=== PATIENT | female | born 1945 | race Caucasian/White ===

== ENCOUNTER 2018-03-17 18:40 | Observation (INO) | payer MEDICARE, SELFPAY ==
--- NOTE | 2018-03-17 12:46 | EKG12_ITS ---
Test Reason : CP Blood Pressure : / mmHG Vent. Rate : 083 BPM Atrial Rate : 083 BPM P-R Int : 162 ms QRS Dur : 082 ms QT Int : 400 ms P-R-T Axes : 052 -11 044 degrees QTc Int : 470 ms Normal sinus rhythm Normal ECG Confirmed by EMILIE ESCAIMLLA, ALEXANDRA ([id number]), school photograph editor FRANCIA LEÓN ([id number]) on 03/20/2018 5:55:20 PM Referred By: Rowan Vaca Confirmed By:ALEXANDRA PHAN MD
--- NOTE | 2018-03-17 12:46 | EKG12_ITS ---
Test Reason : REPEAT EKG Blood Pressure : / mmHG Vent. Rate : 065 BPM Atrial Rate : 065 BPM P-R Int : 152 ms QRS Dur : 080 ms QT Int : 432 ms P-R-T Axes : 038 -25 041 degrees QTc Int : 449 ms Normal sinus rhythm with sinus arrhythmia Normal ECG Confirmed by EMILIE ESCAMILLA, ALEXANDRA ([id number]), editor index FRANCIA LEÓN ([id number]) on 03/20/2018 5:54:47 PM Referred By: Rowan Vaca Confirmed By:ALEXANDRA PHAN MD
--- NOTE | 2018-03-17 18:35 | RAD_ITS ---
STUDY: X-RAY CHEST REASON FOR EXAM: Female, 73 years old. Chest pain TECHNIQUE: Single AP portable view of the chest. COMPARISON: None. FINDINGS: cafeteria monitor leads are present. There is a small calcified granuloma the right lung base. There is no demonstrated pleural abnormality. Normal size heart. Normal mediastinum and tristen. Normal visualized pulmonary arteries. There are calcified plaques of the aortic arch. There are degenerative changes of the thoracic spine. There are degenerative changes of the right shoulder joint. A tendon anchor is seen in the right humeral head. There is no demonstrated abnormality of the visualized soft tissue structures of the upper abdomen. RAD/Chest 1 View IMPRESSION: Calcified plaques of the aortic arch. Small calcified granuloma the right lung base. Degenerative changes of the right shoulder joint. Tendon anchor seen in the right humeral head. No acute cardiopulmonary disease process is seen. Electronically Signed: Kayden Zamarripa MD at 19:03 EDT , Service support ,
--- NOTE | 2018-03-17 20:10 | DT_ITS ---
This patient was seen during an EMR downtime March 11, 2018 - March 18, 2018. This patient may have a combination of paper and electronic documentation or all paper documentation. All documentation is viewable within the e-chart portion of [facility] for each patient visit.
[2018-03-18] VITALS (18 sets, daily range): BP systolic 112–137; BP diastolic 53–91; PULSE 55–80; RESP 16–20; TEMP 36.2–37.1; O2SAT 97–99
[2018-03-18] MEDS: 0.9% Normal Saline 1,000 ML 100 ML IV ×2 (00:40→08:00)
[2018-03-18 05:56] LABS: Absolute Lymphocyte Count 2.29 X10^3/ul (0.83-4.51); Absolute Neutrophil Count 2.9 X10^3/uL (2.0-7.7); Basophil# 0.02 X10^3/uL; Basophil% 0.3 % (0-1); Hematocrit 40.5 % (37-47); Hemoglobin 13.3 g/dl (12.0-15.0); Lymphocyte # 2.29 X10^3/ul (4.0); Lymphocyte % 37.8 % (19-41); Mean Corp Hgb Conc 32.8 g/gl (32-36); Mean Corpuscular Hgb 30.4 pg (27.0-32.0); Mean Corpuscular Volume 92.7 fL (81-99); Mean Platelet Vol. 9.9 fl (6.2-12.0); Monocyte% 8.3 % (0-10); Neutrophil # 2.94 X10^3/uL (2.7-7.7); Neutrophil % 48.4 % (47-70); Platelet Count 205 K/mm3 (150-450); RBC Distribution Width CV 13.4 % (11.6-14.6); Red Blood Count 4.37 M/mm3 (4.2-5.4); White Blood Count 6.1 K/mm3 (4.4-11.0)
[2018-03-18 06:09] LABS: Anion Gap 8 (5-15); BUN 19 mg/dL (7-18); BUN/Creat Ratio 18.4 RATIO (10-20); Calcium,Total 7.7 mg/dL (8.5-10.1); Chloride 108 mmol/L (98-107); Cholesterol 154 mg/dL (200); Creatinine, Serum 1.03 mg/dL (0.55-1.02); EST Glomerular Filtration Rate 56 mL/min (>60); Est Glom Filt Rate - Afr Amer 68 mL/min (>60); Glucose 185 mg/dL (74-106); High Density Lipoprotein 32 mg/dL; Potassium 4.2 mmol/L (3.5-5.1); Sodium Level 142 mmol/L (136-145); Triglycerides 251 mg/dL; Very Low Density Lipoprotein 50 mg/dL (5-40)
[2018-03-18] MEDS: Levothyroxine 75 MCG Tablet PO (06:25)
[2018-03-18 06:41] LABS: POSITIVE COUNT NO; POSITIVE DIFFERENTIAL NO; POSITIVE MORPHOLOGY NO
[2018-03-18] MEDS: Aspirin 81 MG TAB.CHEW PO (08:00)
[2018-03-18] MEDS: Clopidogrel Bisulfate 75 MG Tablet PO (08:00)
[2018-03-18] MEDS: Losartan Potassium 100 MG Tablet PO (08:07)
[2018-03-18] MEDS: Metoprolol Tartrate 25 MG Tablet PO (08:07)
--- NOTE | 2018-03-18 11:12 | PCM.DC ---
- Discharge Diagnoses Reason(s) for Visit for Discharge Instructions: Chest pain Allergies/Adverse Reactions: Allergies Sulfa (Sulfonamide Antibiotics) Allergy (Verified 02/01/18 12:59) Other ticagrelor [From Brilinta] Allergy (Verified 02/01/18 12:59) Shortness of breath atorvastatin Adverse Reaction (Severe, Verified 02/01/18 12:59) Myalgias isosorbide Adverse Reaction (Severe, Verified 02/01/18 12:59) Severe headaches & nausea lovastatin Adverse Reaction (Severe, Verified 02/01/18 12:59) Severe Myalgias simvastatin Adverse Reaction (Severe, Verified 02/01/18 12:59) Myalgias lactose Adverse Reaction (Verified 02/01/18 12:59) Nausea nitroglycerin Adverse Reaction (Verified 02/01/18 12:59) Other Zuszuyx-Nvj-Jmr Reductase Inhibitor Adverse Reaction (Verified 02/01/18 12:59) Pain in joints Medications to take at Discharge Aspirin [Aspirin, Baby] 81 mg PO QHS 01/14/14 Levothyroxine [Synthroid] 75 mcg PO DAILY 01/14/14 Losartan Potassium [Cozaar] 100 mg PO DAILY 01/14/14 Cyanocobalamin [Vitamin B12] 500 mcg PO QHS 05/28/17 DiphenhydrAMINE [Benadryl] 25 mg PO TID PRN PRN 05/28/17 Docusate Sodium [Colace] 100 mg PO QHS 05/28/17 Metoprolol Tartrate [Lopressor (beta neo)] 25 mg PO BID #90 tab 05/30/17 Clopidogrel Bisulfate [Plavix] 75 mg PO DAILY 07/13/17 Toujeo Solostar 16 units DAILY 10/01/17 atorvastatin 10 mg tablet 10 mg PO QDAY 02/01/18 creatine monohydrate oral powder ea PO 02/01/18 ezetimibe 10 mg tablet 10 mg PO QDAY 02/01/18 metformin 1,000 mg tablet 500 mg PO BID tab 02/01/18 Primary Care Physician: Chandan Sanchez MD [Primary Care Provider] - Proposed Discharge Date: 03/18/18
--- NOTE | 2018-03-18 11:14 | PCM.DC.SUM ---
Discharge Date and Diagnosis Date of Admission: 03/17/18 Date of Discharge: 03/18/18 - Primary Discharge Diagnosis Chest pain - Secondary Discharge Diagnosis Chronic Problems (Last Updated 02/01/18 @ 13:20 by WILVER Moralez) Atherosclerotic heart disease of [place] coronary artery without angina pectoris (Chronic) Stent to LAD 05/2017 Ischemic cardiomyopathy (Chronic) CAD (coronary artery disease) (Chronic) Hypothyroidism (Chronic) Hypertension (Chronic) Hyperlipemia (Chronic) Type 2 diabetes mellitus (Chronic) Hospital Course and Treatment Operations: None Summary of Care Provided: The patient is a 73 year old F [] Home Medications: Medications to take at Discharge Aspirin [Aspirin, Baby] 81 mg PO QHS 01/14/14 Levothyroxine [Synthroid] 75 mcg PO DAILY 01/14/14 Losartan Potassium [Cozaar] 100 mg PO DAILY 01/14/14 Cyanocobalamin [Vitamin B12] 500 mcg PO QHS 05/28/17 DiphenhydrAMINE [Benadryl] 25 mg PO TID PRN PRN 05/28/17 Docusate Sodium [Colace] 100 mg PO QHS 05/28/17 Metoprolol Tartrate [Lopressor (beta neo)] 25 mg PO BID #90 tab 05/30/17 Clopidogrel Bisulfate [Plavix] 75 mg PO DAILY 07/13/17 Toujeo Solostar 16 units DAILY 10/01/17 atorvastatin 10 mg tablet 10 mg PO QDAY 02/01/18 creatine monohydrate oral powder ea PO 02/01/18 ezetimibe 10 mg tablet 10 mg PO QDAY 02/01/18 metformin 1,000 mg tablet 500 mg PO BID tab 02/01/18 Primary Care Physician: Chandan Sanchez MD [Primary Care Provider] - Medical Necessity - Tobacco Use Smoking Status: Former smoker
--- NOTE | 2018-03-18 11:18 | CASEMGMT ---
According to the [facility] website, the following are in-network tertiary facilities: [facility], [place], [facility], [place], [facility], [facility], [place], [facility], and . Tricia SMITH CM
[2018-03-18] MEDS: Insulin Lispro 100 UNIT/ML INSULN.PEN SQ ×2 (12:33→17:29)
--- NOTE | 2018-03-18 15:34 | PCM.DC.SUM ---
<Brittany Arango - Last Filed: 03/18/18 15:49> Discharge Date and Diagnosis Date of Admission: 03/17/18 Date of Discharge: 03/18/18 - Primary Discharge Diagnosis 1. Unstable angina/Elevated troponin 2. CAD- requiring transfer to tertiary care for CABG - Secondary Discharge Diagnosis Chronic Problems (Last Updated 02/01/18 @ 13:20 by WILVER Moralez) Atherosclerotic heart disease of [place] coronary artery without angina pectoris (Chronic) Stent to LAD 05/2017 Ischemic cardiomyopathy (Chronic) CAD (coronary artery disease) (Chronic) Hypothyroidism (Chronic) Hypertension (Chronic) Hyperlipemia (Chronic) Type 2 diabetes mellitus (Chronic) Hospital Course and Treatment Dr. Tejeda- Cardiology Operations: None Procedures: Cardiac catheterization Summary of Care Provided: The patient is a 73 year old F admitted 03/17/2018 due to chest pain. She has a past medical history of hypothyroidism, obstructive sleep apnea, CAD status post PCI ?2, ischemic cardiomyopathy, type 2 diabetes mellitus, hypertension, hyperlipidemia, chronic kidney disease stage II. EKG sinus rhythm without evidence of ischemia. Repeat EKG in ER showed V1 to V2 T-wave inversions. Dr. Tejeda, cardiology consulted. Troponin elevated. Patient underwent cardiac catheterization and transfer was recommended for CABG. Chest x-ray showed calcified plaques in the aortic arch, small calcified granuloma right lung base, no acute cardiopulmonary disease. Dr. Tejeda discussed case with cardiothoracic surgeon at [facility] who is willing to accept patient. Details of cardiac catheterization pending at discharge. Other chronic medical conditions as noted above are stable at this time. Patient is stable at time of transfer to [facility] for evaluation for CABG. Patient seen and examined prior to discharge. Alert and oriented, no acute distress. Lungs clear. Heart rate regular in rate and rhythm. Neuro grossly intact. Abdomen soft, nontender. Skin intact. Normal affect. Vital signs stable. Home Medications: Medications to take at Discharge Aspirin [Aspirin, Baby] 81 mg PO QHS 01/14/14 Levothyroxine [Synthroid] 75 mcg PO DAILY 01/14/14 Losartan Potassium [Cozaar] 100 mg PO DAILY 01/14/14 Cyanocobalamin [Vitamin B12] 500 mcg PO QHS 05/28/17 DiphenhydrAMINE [Benadryl] 25 mg PO TID PRN PRN 05/28/17 Docusate Sodium [Colace] 100 mg PO QHS 05/28/17 Clopidogrel Bisulfate [Plavix] 75 mg PO DAILY 07/13/17 Tounadyao Solostar 18 units SQ DAILY 10/01/17 ezetimibe 10 mg tablet 10 mg PO QDAY 02/01/18 metformin 1,000 mg tablet 500 mg PO BID tab 02/01/18 Insulin Aspart [Novolog Flexpen (BKC)] 10 units SC DINNER 03/18/18 Loratadine [Claritin] 10 mg PO DAILY 03/18/18 Metoprolol Tartrate [Lopressor (beta neo)] 25 mg PO BID 03/18/18 Primary Care Physician: Chandan Sanchez MD [Primary Care Provider] - Disposition: Acute care Hospital Minutes spent on discharge:: 35 Patient Condition:: Stable Medical Necessity - Tobacco Use Smoking Status: Former smoker Meaningful Use Info Meaningful Use Diagnoses (Choose all that apply): None applicable <CathyShickshinny - Last Filed: 03/19/18 06:10> Discharge Date and Diagnosis - Secondary Discharge Diagnosis Chronic Problems (Last Updated 02/01/18 @ 13:20 by WILVER Moralez) Atherosclerotic heart disease of [place] coronary artery without angina pectoris (Chronic) Stent to LAD 05/2017 Ischemic cardiomyopathy (Chronic) CAD (coronary artery disease) (Chronic) Hypothyroidism (Chronic) Hypertension (Chronic) Hyperlipemia (Chronic) Type 2 diabetes mellitus (Chronic) Hospital Course and Treatment Summary of Care Provided: The patient is a 73 year old F [] Code Visit Inpatient E&M: 43306 Disch Hosp
--- NOTE | 2018-03-18 15:47 | DS.PCM_ITS ---
Addendum entered and electronically signed by SHY Alvarez 03/18/18 15:49: Code Visit This patient was seen by SHY Alvarez under the supervision of Dr. Morgan. Original Note: <Brittany Arango - Last Filed: 03/18/18 15:49> Discharge Date and Diagnosis Date of Admission: 03/17/18 Date of Discharge: 03/18/18 - Primary Discharge Diagnosis 1. Unstable angina/Elevated troponin 2. CAD- requiring transfer to tertiary care for CABG - Secondary Discharge Diagnosis Chronic Problems (Last Updated 02/01/18 @ 13:20 by WILVER Moralez) Atherosclerotic heart disease of [place] coronary artery without angina pectoris (Chronic) Stent to LAD 05/2017 Ischemic cardiomyopathy (Chronic) CAD (coronary artery disease) (Chronic) Hypothyroidism (Chronic) Hypertension (Chronic) Hyperlipemia (Chronic) Type 2 diabetes mellitus (Chronic) Hospital Course and Treatment Dr. Tejeda- Cardiology Operations: None Procedures: Cardiac catheterization Summary of Care Provided: The patient is a 73 year old F admitted 03/17/2018 due to chest pain. She has a past medical history of hypothyroidism, obstructive sleep apnea, CAD status post PCI ?2, ischemic cardiomyopathy, type 2 diabetes mellitus, hypertension, hyperlipidemia, chronic kidney disease stage II. EKG sinus rhythm without evidence of ischemia. Repeat EKG in ER showed V1 to V2 T-wave inversions. Dr. Tejeda, cardiology consulted. Troponin elevated. Patient underwent cardiac catheterization and transfer was recommended for CABG. Chest x-ray showed calcified plaques in the aortic arch, small calcified granuloma right lung base , no acute cardiopulmonary disease. Dr. Tejeda discussed case with cardiothoracic surgeon at [facility] who is willing to accept patient. Details of cardiac catheterization pending at discharge. Other chronic medical conditions as noted above are stable at this time. Patient is stable at time of transfer to [facility] for evaluation for CABG. Patient seen and examined prior to discharge. Alert and oriented, no acute distress. Lungs clear. Heart rate regular in rate and rhythm. Neuro grossly intact. Abdomen soft, nontender. Skin intact. Normal affect. Vital signs stable. Home Medications: Medications to take at Discharge Aspirin [Aspirin, Baby] 81 mg PO QHS 01/14/14 Levothyroxine [Synthroid] 75 mcg PO DAILY 01/14/14 Losartan Potassium [Cozaar] 100 mg PO DAILY 01/14/14 Cyanocobalamin [Vitamin B12] 500 mcg PO QHS 05/28/17 DiphenhydrAMINE [Benadryl] 25 mg PO TID PRN PRN 05/28/17 Docusate Sodium [Colace] 100 mg PO QHS 05/28/17 Clopidogrel Bisulfate [Plavix] 75 mg PO DAILY 07/13/17 Toujeo Solostar 18 units SQ DAILY 10/01/17 ezetimibe 10 mg tablet 10 mg PO QDAY 02/01/18 metformin 1,000 mg tablet 500 mg PO BID tab 02/01/18 Insulin Aspart [Novolog Flexpen (BKC)] 10 units SC DINNER 03/18/18 Loratadine [Claritin] 10 mg PO DAILY 03/18/18 Metoprolol Tartrate [Lopressor (beta neo)] 25 mg PO BID 03/18/18 Primary Care Physician: Chandan Sanchez MD [Primary Care Provider] - Disposition: Acute care Hospital Minutes spent on discharge:: 35 Patient Condition:: Stable Medical Necessity - Tobacco Use Smoking Status: Former smoker Meaningful Use Info Meaningful Use Diagnoses (Choose all that apply): None applicable <Paintsil,Mcleod - Last Filed: 03/19/18 06:10> Discharge Date and Diagnosis - Secondary Discharge Diagnosis Chronic Problems (Last Updated 02/01/18 @ 13:20 by WILVER Moralez) Atherosclerotic heart disease of [place] coronary artery without angina pectoris (Chronic) Stent to LAD 05/2017 Ischemic cardiomyopathy (Chronic) CAD (coronary artery disease) (Chronic) Hypothyroidism (Chronic) Hypertension (Chronic) Hyperlipemia (Chronic) Type 2 diabetes mellitus (Chronic) Hospital Course and Treatment Summary of Care Provided: The patient is a 73 year old F [] Code Visit Inpatient E&M: 00603 Disch Hosp
--- NOTE | 2018-03-18 16:46 | CL.D_ITS ---
Patient Name: SANDY VALENTE Study Date: 03/18/2018 Performing: Luís Tejeda MD Ht: inches cm : 1945 Wt: 156.7 lbs 71 kg Age: 73 Gender: female BSA: PROCEDURE(S) PERFORMED [id number] CLINICAL PROFILE AND INDICATIONS Indications: ACS <= 24 hrs Heart Failure: None Stress/Imaging Stress/Image Study Performed: No Angina Classification Anginal Classification w/in 2 Weeks: CCS III CAD Presentations: Unstable angina. CONCLUSIONS Severe disease involving the ostial left anterior descending artery with in-stent stenosis of the pro ximal LAD stent RECOMMENDATIONS Surgery consult for coronary revascularization DESCRIPTION OF PROCEDURE The patient arrived to the procedure lab. The risks and benefits of the procedure as well as a full d escription of our services here and current unavailability of surgical backup were fully explained to the patient and/or their significant other prior to the catheterization. The Timeout was completed, verifying the correct patient and procedure. The patient's procedural site was prepped and draped in the usual fashion. Local anesthetic was given subcutaneously to right radial region with Lidocaine 2% . Using a modified Seldinger technique, arterial access was obtained via the right radial artery, a 6 Fr sheath was inserted. Right Coronary Artery selective angiography was then performed in multiple v iews using a 5 Fr. 4.0 Pool catheter. Left Coronary Artery selective angiography was unable to be pe rformed using a 5 Fr. JL3.5 catheter. Left Coronary Artery selective angiography was performed in mul tiple views using a 5 Fr. JL4 catheter. Left Coronary Artery selective angiography was performed in m ultiple views using a 5 Fr. 4.0 Pool catheter. Left Ventriculography was performed in BAKER projection using a 5 Fr. Pigtail catheter. LV to AO pullback pressures were then recorded.The arterial sheath w as pulled and a TR Band was applied for hemostasis CORONARY ANGIOGRAPHY DOMINANCE: Right Dominant LEFT HEART ASSESSMENT Left Ventricular Ejection Fraction: by LV Gram 45 % Anterior Hypokinesis - Mild Depressed Left Ventricular systolic function LEFT MAIN: Angiographically normal LEFT ANTERIOR DECENDING ARTERY: OSTIAL LAD: 95 % Stenosis PROX LAD: Instent restenosis 70 % MID LAD: Previously placed stent is patent CIRCUMFLEX ARTERY: Mild luminal irregularities RIGHT CORONARY ARTERY: Angiographically normal COMPLICATIONS No Complications PROCEDURE MEDICATIONS Versed 1 mg IV Fentanyl 50 mcg IV Oxygen: 2 L/min via nasal cannula Heparin diluted in 23cc Heparinized saline. Patient given 10cc IA of this solution. 03/18/2018 08:47: 47 Heparin diluted in 23cc Heparinized saline. Patient given 10cc IA of this solution. 03/18/2018 08:47: 47 Verapamil 2.5mg, 2000 units of Heparin diluted in 23cc Heparinized saline. Patient given 10cc IA of this solution. 03/18/2018 08:47:47 Verapamil 2.5mg, 2000 units of Heparin diluted in 23cc Heparinized saline. Patient given 10cc IA of this solution. 03/18/2018 08:47:47 SUMMARY OF HEMODYNAMIC DATA Time AIR REST ECG 08:21:21 AO 113/59 (81) SA 08:51:04 LV 136/10, 25 09:27:27 LV 132/11, 24 09:27:34 LV 121/5, 21 09:28:54 LV 123/10, 25 09:29:01 LVp 128/15, 31 09:29:06 AOp 129/68 (96) 09:29:11 Signed By Luís Tejeda MD On 03/18/2018 16:45:43 Luís Tjeeda MD
[2018-03-18 17:30] LABS: Bedside Glucose 194 mg/dL (70-110)
[2018-03-18] MEDS: Acetaminophen 325 MG Tablet 650 MG PO (18:58)
[2018-03-19 07:55] LABS: BUN 21 mg/dL (7-18); BUN/Creat Ratio 16.7 RATIO (10-20); Calcium,Total 9.3 mg/dL (8.5-10.1); Creatinine, Serum 1.26 mg/dL (0.55-1.02); EST Glomerular Filtration Rate 44 mL/min (>60); Est Glom Filt Rate - Afr Amer 53 mL/min (>60); Glucose 212 mg/dL (74-106); Sodium Level 136 mmol/L (136-145)
[2018-03-19 07:56] LABS: Anion Gap 10 (5-15); Chloride 100 mmol/L (98-107)
[2018-03-19 10:45] LABS: Hematocrit 50.2 % (37-47); Hemoglobin 16.6 g/dl (12.0-15.0); Mean Corp Hgb Conc 33.1 g/gl (32-36); Mean Corpuscular Hgb 29.9 pg (27.0-32.0); Mean Corpuscular Volume 90.5 fL (81-99); Mean Platelet Vol. 9.6 fl (6.2-12.0); Platelet Count 232 K/mm3 (150-450); RBC Distribution Width CV 13.4 % (11.6-14.6); RBC Distribution Width SD 43.8 fl (35.1-43.9); Red Blood Count 5.55 M/mm3 (4.2-5.4); White Blood Count 7.1 K/mm3 (4.4-11.0)
[2018-03-19 10:46] LABS: Absolute Lymphocyte Count 1.87 X10^3/ul (0.83-4.51); Absolute Neutrophil Count 4.5 X10^3/uL (2.0-7.7); Basophil# 0.01 X10^3/uL; Basophil% 0.1 % (0-1); Eosinophil# 0.23 X10^3/uL; Eosinophils% 3.2 % (0-5); Lymphocyte # 1.87 X10^3/ul (4.0); Lymphocyte % 26.2 % (19-41); Monocyte# 0.49 X10^3/uL; Monocyte% 6.9 % (0-10); Neutrophil # 4.53 X10^3/uL (2.7-7.7); Neutrophil % 63.5 % (47-70); POSITIVE COUNT NO; POSITIVE DIFFERENTIAL NO; POSITIVE MORPHOLOGY NO
[2018-03-19 11:22] LABS: Magnesium 1.6 mg/dL (1.6-2.6); Thyroid Stim Hormone (TSH) 4.06 uIU/mL (0.358-3.74)
[2018-03-21 13:05] LABS: Bedside Glucose 192 mg/dL (70-110)
[2018-03-21 15:10] LABS: Bedside Glucose 192 mg/dL (70-110)
[2018-03-21 15:40] LABS: Bedside Glucose 192 mg/dL (70-110)
[2018-03-22 20:40] LABS: Bedside Glucose 174 mg/dL (70-110)
== END 2018-03-18 19:30 | disposition short-term general hospital (02) ==
LOC: ED 20:09 → PCU 20:13
PROVIDERS: Admitting Provider Family Medicine; Emergency Provider Emergency Medicine; Family Provider Family Medicine; PCP Family Medicine; Visit Provider Internal Medicine
DX: I25.110 Atherosclerotic heart disease of native coronary artery with unstable angina pectoris (principal); I25.2 Old myocardial infarction; G47.33 Obstructive sleep apnea (adult) (pediatric); I42.8 Other cardiomyopathies; E11.22 Type 2 diabetes mellitus with diabetic chronic kidney disease; I12.9 Hypertensive chronic kidney disease with stage 1 through stage 4 chronic kidney disease, or unspecified chronic kidney disease; N18.2 Chronic kidney disease, stage 2 (mild); E78.5 Hyperlipidemia, unspecified; E03.9 Hypothyroidism, unspecified; Z79.899 Other long term (current) drug therapy; Z79.82 Long term (current) use of aspirin; Z79.84 Long term (current) use of oral hypoglycemic drugs; Z95.5 Presence of coronary angioplasty implant and graft; Z79.02 Long term (current) use of antithrombotics/antiplatelets; E73.9 Lactose intolerance, unspecified; Z87.891 Personal history of nicotine dependence
CPT/HCPCS: 36415; 71045; 80048; 80061; 82962; 83735; 84436; 84443; 84484; 85025; 93005; 93458; 96361; 96372; 96374; 96375; 96376; 99152; 99153; 99218; 99284; J7030; J7040; Q9967; A4216; C1769; C1887; C1894; G0378; J2405

== ENCOUNTER → 2018-05-06 12:52 | Outpatient (CLI) | payer MEDICARE, SELFPAY ==
--- NOTE | 2018-05-06 12:58 | PCM.CR.HP2 ---
CR - History & Physical - General Arrival date:: 05/06/18 Arrival time:: 12:58 Date of Referral:: 05/06/18 Date of CR Evaluation:: 05/06/18 Referring Physician: Dr. Angelique Tejeda Primary Diagnosis: CABG x 1 - History of Present Cardiac Event Onset Date: Enter Onset Date of cardiac illnesses in Comment field below Current stable Angina Pectoris:: No Acute Myocardial Infarction within 12 months:: Yes - May 2017 Coronary Artery Bypass Graft:: Yes - March 22, 2018 x 1 Heart valve replacement or repair:: No PTCA or coronary stenting:: Yes - May 2017 Heart or Heart-Lung Transplant:: No Heart Failure EF <35%:: No Type of Symptoms:: chest pain and vomiting. Interventions with present event:: heart cath then transferred for CABG Were there any complications?: no - Medications Home Medications: Ambulatory Orders Medication Instructions Recorded Levothyroxine [Synthroid] 75 mcg PO DAILY 01/14/14 Cyanocobalamin [Vitamin B12] 500 mcg PO QHS 05/28/17 DiphenhydrAMINE [Benadryl] 25 mg PO TID PRN PRN 05/28/17 Docusate Sodium [Colace] 100 mg PO QHS PRN 05/28/17 Clopidogrel Bisulfate [Plavix] 75 mg PO DAILY 07/13/17 ezetimibe 10 mg tablet 10 mg PO QDAY 02/01/18 Insulin Aspart [Novolog Flexpen 10 units SC DINNER 03/18/18 ([facility])] Loratadine [Claritin] 10 mg PO DAILY 03/18/18 Metoprolol Tartrate [Lopressor 25 mg PO BID 03/18/18 (beta neo)] aspirin 81 mg chewable tablet 162 mg PO QHS tab 04/11/18 insulin glargine (U-300) 300 18 unit SC QDAY ml 04/11/18 unit/mL (1.5 mL) subcutaneous pen metformin 500 mg tablet 500 mg PO BID 04/11/18 - Allergies Allergies/Adverse Reactions: Allergies Sulfa (Sulfonamide Antibiotics) Allergy (Verified 04/11/18 13:13) Other ticagrelor [From Brilinta] Allergy (Verified 04/11/18 13:13) Shortness of breath atorvastatin Adverse Reaction (Severe, Verified 04/11/18 13:13) Myalgias isosorbide Adverse Reaction (Severe, Verified 04/11/18 13:13) Severe headaches & nausea lovastatin Adverse Reaction (Severe, Verified 04/11/18 13:13) Severe Myalgias simvastatin Adverse Reaction (Severe, Verified 04/11/18 13:13) Myalgias lactose Adverse Reaction (Verified 04/11/18 13:13) Nausea nitroglycerin Adverse Reaction (Verified 04/11/18 13:13) Other Erkxycw-Jbv-Flp Reductase Inhibitor Adverse Reaction (Verified 04/11/18 13:13) Pain in joints CREATINE Allergy (Uncoded 03/18/18 16:57) Unknown - Sleep Disorder Evaluation Hx of Sleep Apnea: Yes Do you snore loudly (louder than talking or can be heard through closed doors)?: Yes - has KOBE and is on bipap at HS. Do you often feel tired/ fatigued/ sleepy during daytime?: Yes Has anyone observed you stop breathing during sleep?: Yes History of Hypertension (for STOP score): Yes STOP Results: Positive Advanced Directives - Advanced Directives Power of Vice President Of Finance: Yes Living Will: Yes Advance Directives Information Provided: Yes Advance Directives on File: No DNR Order?:: No Past Medical History - Past Medical Illness Medical History: Past Medical History (Last Reviewed 04/11/18 @ 13:33 by Luís Tejeda MD) H/O heart artery stent (Resolved) Z95.5 05/29/17, PTCA/TRES of Mid LAD using Synergy 2.5 X 28 mm, stent post-dilated in prox part using 3.0 balloon, Successful TRES prox LAD using Synergy 3.0 X 16 mm; Atherosclerotic heart disease of [place] coronary artery without angina pectoris (Chronic) I25.10 Stent to LAD 05/2017 Ischemic cardiomyopathy (Chronic) I25.5 CAD (coronary artery disease) (Chronic) I25.10 Hypertension (Chronic) I10 Hyperlipemia (Chronic) E78.5 NSTEMI (non-ST elevated myocardial infarction) (Resolved) I21.4 KOBE (obstructive sleep apnea) G47.33 - Past Surgical History Surgical History: Past Surgical History (Last Reviewed 04/11/18 @ 13:33 by Luís Tejeda MD) Aortocoronary bypass status (Chronic) Onset Date: ~03/22/18 Z95.1 CABG x1- ODEN to LAD 03/22/18 History of tonsillectomy (Resolved) Z90.89 H/O removal of cyst (Resolved) Z98.890 ovarian bladder suspension (Resolved) H/O repair of rotator cuff (Resolved) Z98.890 right Surgical History: rotator cuff repair, tonsillectomy, - - Family History Summary Family History: Family History (Last Reviewed 04/11/18 @ 13:33 by Luís Tejeda MD) Mother CAD (coronary artery disease) Social History - Smoking History Smoking Status: Never smoker Hx Tobacco Use: No Hx Smoking Exposure: No - Alcohol Use Alcohol Usage: No - Substance Abuse Hx Substance Use: No - Occupation Occupation (List type of work in comments):: Retired - Hobbies, Recreation, Social Activities Hobbies: Sewing, Reading, Other - plays guitar Recreational Activities: I am able to engage in a few activities Social Environment - Status Marital Status: Single - Current Living Arrangements Living Environment:: Spouse - significant other. - Children How many children do you have?: 4 Do any of your children live nearby?: Yes - Safety Do you feel safe in your surroundings?: Yes - Assistance Do you need any assistance at home?: no Review of Systems - Review of Systems Hints: Right click = Denies ([place]). Left click = Reports ([place]) Review of Present Symptoms: Reports: Shortness of Breath at Rest, Shortness of Breath with Exertion - Slight sob at times., Operative Discomfort - slight, Wound Healing - small dry brown scab noted on part of chest incision, Dizziness/Lightheadedness - only upon arising quickly, Fatigue - by 5pm is tired, Appetite - Normal, Appetite - Special Diet - lactose free diet, watches sodium, Diabetic diet., Sleep - Normal. Denies: PVD, Angina, Heart Arrhythmia/Irregularities, Sexual Changes - Pain Is Patient Pain Free?: No Pain Location: chest Pain Level: 3/10 - just holds hand over chest and deep breaths Risk Factor Assessment - Vital Signs Pulse Ox: 95 - Pulse Pulse Rate: 92 Pulse Rhythm: Regular - Hypertension How long have you been treated?: 25 years On medication(s)?: yes Blood Pressure Sitting - Right Arm: 140/72 Blood Pressure Sitting - Left Arm: 142/70 - Stress Stress: Home/Family - republican recently, otherwise no - Diabetes Diabetic History: Type II, Medication Dependent, Insulin Dependent Nutrition Referral for Diabetes: Yes - Obesity Height: 1.52 m Weight:: 68.039 kg Weight in Pounds: 150.0 lbs Weight Source: Standing Scale Body Mass Index (BMI): 29.2 Desired Body Weight: 140 Realistic Weight Goal (Loss of 1-2 lbs/week): 123 Nutritional Referral for Obesity: Yes - Physical Inactivity Physical Inactivity: Reg Exercise 30 min/day - walking quite a bit each day. - Risk Stratification Risk Guidelines: Lowest Risk: Risk Factor for Smoking, Risk Factor for Depression, Moderate Risk: Risk Factor for Dyslipidemia, Risk Factor for Diabetes, Risk Factor for Obesity, Risk Factor for Hypertension, Risk Factor for Sedentary Lifestyle - For Smoking Smoking Risk Guidelines: Smoking Low Risk: None or quit greater than 6 months ago. Smoking Moderate Risk: Smoker or quit 6 months or less ago. Smoking High Risk: Smoker - For Dyslipidemia Dyslipidemia Risk Guidelines: Low Risk: Moderate Risk: High Risk: 15-25% fat 25.1-29% fat >/= 30% fat. <7% sat fat 7-9% sat fat >9% sat fat. <150 mg chol 150-299 mg chol >/= 300 mg chol. LDL <100 LDL 100-129 LDL >/= 130. Chol/HDL ratio <5.0 Chol/HDL ratio 5.0-6.0 Chol/HDL ratio >6.0. Triglycerides <100 Triglycerides 100-149 Triglycerides >/= 150 - For Diabetes Mellitus Diabetes Risk Guidelines: Diabetes Low Risk: HgA1c <6.5% and/or FBG <120. Diabetes Moderate Risk: HgA1c 6.6-7.9% and/or FBG 120-180. Diabetes High Risk: HgA1c >/= 8% and/or FBG >180 - For Obesity/Overweight Obesity/Overweight Risk Guidelines: Obesity Low Risk: BMI <25.0. Obesity Moderate Risk: BMI 25-29.9. Obesity High Risk: BMI >/= 30.0 - For Hypertension Hypertension Risk Guidelines: Hypertension Low Risk: Systolic <120 and Diastolic <80. Hypertension Moderate Risk: Systolic 120-139 and Diastolic 80-89. Hypertension High Risk: Systolic >/= 140 and Diastolic >/= 90 - For Sedentary Lifestyle Sedentary Lifestyle Risk Guidelines: Sedentary Lifestyle Low Risk: >/= 1,500 kcal/week. Sedentary Lifestyle Moderate Risk: 700-1,499 kcal/week. Sedentary Lifestyle High Risk: < 700 kcal/week - For Depression Depression Risk Guidelines: Depression Low Risk: Not clinically depressed. Depression Moderate Risk: Mildly depressed. Depression High Risk: Clinically depressed - Family History Family History: Family History (Last Reviewed 04/11/18 @ 13:33 by Luís Tejeda MD) Mother CAD (coronary artery disease) Motivation - Motivation to Participate On a scale of 1 to 10, how prepared are you to commit to attending program?: 10
--- NOTE | 2018-05-06 13:05 | CR.HP_ITS ---
CR - History & Physical - General Arrival date:: 05/06/18 Arrival time:: 12:58 Date of Referral:: 05/06/18 Date of CR Evaluation:: 05/06/18 Referring Physician: Dr. Angelique Tejeda Primary Diagnosis: CABG x 1 - History of Present Cardiac Event Onset Date: Enter Onset Date of cardiac illnesses in Comment field below Current stable Angina Pectoris:: No Acute Myocardial Infarction within 12 months:: Yes - May 2017 Coronary Artery Bypass Graft:: Yes - March 22, 2018 x 1 Heart valve replacement or repair:: No PTCA or coronary stenting:: Yes - May 2017 Heart or Heart-Lung Transplant:: No Heart Failure EF <35%:: No Type of Symptoms:: chest pain and vomiting. Interventions with present event:: heart cath then transferred for CABG Were there any complications?: no - Medications Home Medications: Ambulatory Orders Medication Instructions Recorded Levothyroxine [Synthroid] 75 mcg PO DAILY 01/14/14 Cyanocobalamin [Vitamin B12] 500 mcg PO QHS 05/28/17 DiphenhydrAMINE [Benadryl] 25 mg PO TID PRN PRN 05/28/17 Docusate Sodium [Colace] 100 mg PO QHS PRN 05/28/17 Clopidogrel Bisulfate [Plavix] 75 mg PO DAILY 07/13/17 ezetimibe 10 mg tablet 10 mg PO QDAY 02/01/18 Insulin Aspart [Novolog Flexpen 10 units SC DINNER 03/18/18 ([facility])] Loratadine [Claritin] 10 mg PO DAILY 03/18/18 Metoprolol Tartrate [Lopressor 25 mg PO BID 03/18/18 (beta neo)] aspirin 81 mg chewable tablet 162 mg PO QHS tab 04/11/18 insulin glargine (U-300) 300 18 unit SC QDAY ml 04/11/18 unit/mL (1.5 mL) subcutaneous pen metformin 500 mg tablet 500 mg PO BID 04/11/18 - Allergies Allergies/Adverse Reactions: Allergies Sulfa (Sulfonamide Antibiotics) Allergy (Verified 04/11/18 13:13) Other ticagrelor [From Brilinta] Allergy (Verified 04/11/18 13:13) Shortness of breath atorvastatin Adverse Reaction (Severe, Verified 04/11/18 13:13) Myalgias isosorbide Adverse Reaction (Severe, Verified 04/11/18 13:13) Severe headaches & nausea lovastatin Adverse Reaction (Severe, Verified 04/11/18 13:13) Severe Myalgias simvastatin Adverse Reaction (Severe, Verified 04/11/18 13:13) Myalgias lactose Adverse Reaction (Verified 04/11/18 13:13) Nausea nitroglycerin Adverse Reaction (Verified 04/11/18 13:13) Other Lxyhdxw-Ncs-Qmv Reductase Inhibitor Adverse Reaction (Verified 04/11/18 13:13) Pain in joints CREATINE Allergy (Uncoded 03/18/18 16:57) Unknown - Sleep Disorder Evaluation Hx of Sleep Apnea: Yes Do you snore loudly (louder than talking or can be heard through closed doors)? : Yes - has KOBE and is on bipap at HS. Do you often feel tired/ fatigued/ sleepy during daytime?: Yes Has anyone observed you stop breathing during sleep?: Yes History of Hypertension (for STOP score): Yes STOP Results: Positive Advanced Directives - Advanced Directives Power of Telesales Advisor: Yes Living Will: Yes Advance Directives Information Provided: Yes Advance Directives on File: No DNR Order?:: No Past Medical History - Past Medical Illness Medical History: Past Medical History (Last Reviewed 04/11/18 @ 13:33 by Luís Tejeda MD) H/O heart artery stent (Resolved) Z95.5 05/29/17, PTCA/TRES of Mid LAD using Synergy 2.5 X 28 mm, stent post-dilated in prox part using 3.0 balloon, Successful TRES prox LAD using Synergy 3.0 X 16 mm; Atherosclerotic heart disease of [place] coronary artery without angina pectoris (Chronic) I25.10 Stent to LAD 05/2017 Ischemic cardiomyopathy (Chronic) I25.5 CAD (coronary artery disease) (Chronic) I25.10 Hypertension (Chronic) I10 Hyperlipemia (Chronic) E78.5 NSTEMI (non-ST elevated myocardial infarction) (Resolved) I21.4 KOBE (obstructive sleep apnea) G47.33 - Past Surgical History Surgical History: Past Surgical History (Last Reviewed 04/11/18 @ 13:33 by Luís Tejeda MD) Aortocoronary bypass status (Chronic) Onset Date: ~03/22/18 Z95.1 CABG x1- ODEN to LAD 03/22/18 History of tonsillectomy (Resolved) Z90.89 H/O removal of cyst (Resolved) Z98.890 ovarian bladder suspension (Resolved) H/O repair of rotator cuff (Resolved) Z98.890 right Surgical History: rotator cuff repair, tonsillectomy, - - Family History Summary Family History: Family History (Last Reviewed 04/11/18 @ 13:33 by Luís Tejeda MD) Mother CAD (coronary artery disease) Social History - Smoking History Smoking Status: Never smoker Hx Tobacco Use: No Hx Smoking Exposure: No - Alcohol Use Alcohol Usage: No - Substance Abuse Hx Substance Use: No - Occupation Occupation (List type of work in comments):: Retired - Hobbies, Recreation, Social Activities Hobbies: Sewing, Reading, Other - plays guitar Recreational Activities: I am able to engage in a few activities Social Environment - Status Marital Status: Single - Current Living Arrangements Living Environment:: Spouse - significant other. - Children How many children do you have?: 4 Do any of your children live nearby?: Yes - Safety Do you feel safe in your surroundings?: Yes - Assistance Do you need any assistance at home?: no Review of Systems - Review of Systems Hints: Right click = Denies ([place]). Left click = Reports ([place]) Review of Present Symptoms: Reports: Shortness of Breath at Rest, Shortness of Breath with Exertion - Slight sob at times., Operative Discomfort - slight, Wound Healing - small dry brown scab noted on part of chest incision, Dizziness/ Lightheadedness - only upon arising quickly, Fatigue - by 5pm is tired, Appetite - Normal, Appetite - Special Diet - lactose free diet, watches sodium, Diabetic diet., Sleep - Normal. Denies: PVD, Angina, Heart Arrhythmia/ Irregularities, Sexual Changes - Pain Is Patient Pain Free?: No Pain Location: chest Pain Level: 3/10 - just holds hand over chest and deep breaths Risk Factor Assessment - Vital Signs Pulse Ox: 95 - Pulse Pulse Rate: 92 Pulse Rhythm: Regular - Hypertension How long have you been treated?: 25 years On medication(s)?: yes Blood Pressure Sitting - Right Arm: 140/72 Blood Pressure Sitting - Left Arm: 142/70 - Stress Stress: Home/Family - republican recently, otherwise no - Diabetes Diabetic History: Type II, Medication Dependent, Insulin Dependent Nutrition Referral for Diabetes: Yes - Obesity Height: 1.52 m Weight:: 68.039 kg Weight in Pounds: 150.0 lbs Weight Source: Standing Scale Body Mass Index (BMI): 29.2 Desired Body Weight: 140 Realistic Weight Goal (Loss of 1-2 lbs/week): 123 Nutritional Referral for Obesity: Yes - Physical Inactivity Physical Inactivity: Reg Exercise 30 min/day - walking quite a bit each day. - Risk Stratification Risk Guidelines: Lowest Risk: Risk Factor for Smoking, Risk Factor for Depression, Moderate Risk: Risk Factor for Dyslipidemia, Risk Factor for Diabetes, Risk Factor for Obesity, Risk Factor for Hypertension, Risk Factor for Sedentary Lifestyle - For Smoking Smoking Risk Guidelines: Smoking Low Risk: None or quit greater than 6 months ago. Smoking Moderate Risk: Smoker or quit 6 months or less ago. Smoking High Risk: Smoker - For Dyslipidemia Dyslipidemia Risk Guidelines: Low Risk: Moderate Risk: High Risk: 15-25% fat 25.1-29% fat >/= 30% fat. <7% sat fat 7-9% sat fat >9% sat fat. <150 mg chol 150-299 mg chol >/= 300 mg chol. LDL <100 LDL 100-129 LDL >/= 130. Chol/HDL ratio <5.0 Chol/HDL ratio 5.0-6.0 Chol/HDL ratio >6.0. Triglycerides <100 Triglycerides 100-149 Triglycerides >/= 150 - For Diabetes Mellitus Diabetes Risk Guidelines: Diabetes Low Risk: HgA1c <6.5% and/or FBG <120. Diabetes Moderate Risk: HgA1c 6.6-7.9% and/or FBG 120-180. Diabetes High Risk: HgA1c >/= 8% and/or FBG >180 - For Obesity/Overweight Obesity/Overweight Risk Guidelines: Obesity Low Risk: BMI <25.0. Obesity Moderate Risk: BMI 25-29.9. Obesity High Risk: BMI >/= 30.0 - For Hypertension Hypertension Risk Guidelines: Hypertension Low Risk: Systolic <120 and Diastolic <80. Hypertension Moderate Risk: Systolic 120-139 and Diastolic 80-89. Hypertension High Risk: Systolic >/= 140 and Diastolic >/= 90 - For Sedentary Lifestyle Sedentary Lifestyle Risk Guidelines: Sedentary Lifestyle Low Risk: >/= 1 ,500 kcal/week. Sedentary Lifestyle Moderate Risk: 700-1,499 kcal/week. Sedentary Lifestyle High Risk: < 700 kcal/week - For Depression Depression Risk Guidelines: Depression Low Risk: Not clinically depressed. Depression Moderate Risk: Mildly depressed. Depression High Risk: Clinically depressed - Family History Family History: Family History (Last Reviewed 04/11/18 @ 13:33 by Luís Tejeda MD) Mother CAD (coronary artery disease) Motivation - Motivation to Participate On a scale of 1 to 10, how prepared are you to commit to attending program?: 10
--- NOTE | 2018-05-06 13:07 | CR.ITP_ITS ---
General Information - General Information Admitting Diagnosis: CABG x 1 - Education/Goals Barriers to Learning: Vision Impairment - Has some diabetic floaters in eyes. Individual Counseling: Initial Assessment: Abnormal Cholesterol Levels, High Blood Pressure, Overweight/Obesity, Diabetes, Hypertension, Family History of Heart Disease (under 65 years) Cardiac Rehabilitation Goals: 1. Maintain the individual as the primary focus of care. 2. To improve the patient's quality of life. 3. Identification of cardiac risk factors and provide cardiac risk factor management. 4. Enhance the psychosocial status of the patient. 5. Reconditioning enough to allow the patient to resume customary activities. 6. Control symptoms of cardiac disease Scale for measuring improvement of personal goals: Enter appropriate number in Comments. 2 = Unchanged. 3 = Slightly Better. 4 = Moderate Improvement. 5 = Met my Goal Personal Goals: Initial Assessment: Improve energy level, Participate in home exercise program, Improve knowledge of cardiac disease, Improve muscle strength and endurance, Improve diet and eating habits (eat healthier), Control risk factors (learn risk factor modification), Other goal: Nutrition - Initial Assessment - Program Goals Nutrition Program Goals: LDL <70. Total Cholesterol <200. HDL >45. Triglycerides <150. HgbA1C <7%. BMI <25 - Visit Date of Assessment:: 05/06/18 - Stages of Change Stages of Change:: Action - Diabetes Diabetes:: Yes Insulin: Yes Non-Insulin Dependent?: Yes Do you monitor your blood sugar at home?: Yes - Weight Management Height: 1.52 m Weight:: 68.039 kg Weight Goal (kg):: 58.513 kg Body Fat %:: 29.2 Goal % Body Fat:: 24 - Intervention Referral to dietitian:: Yes Referral to Diabetic Clinic:: Yes Will attend diet classes:: Yes - Education Gave educational materials for:: Signs & symptoms of hypoglycemia, Signs & symptoms of hyperglycemia, Relate diabetes to coronary artery disease, Healthy eating Tobacco - Initial Assessment - Program Goals Tobacco Program Goals: Complete smoking cessation. Attend education classes. Improve Knowledge Test score - Stage of Change Stages of Change:: Maintenance - Learning Barriers Learning Barriers: Vision, Ready to Learn Total Score:: 17 - Family Support Do you have family support?: Yes - Tobacco Use Tobacco Use: Non-smoker Do you use smokeless tobacco?: No - Intervention Smoking Cessation Referral:: No Individual Education/Counseling:: No Education Schedule Given:: Yes - Education Gave educational material for:: Coronary artery disease, Risk factors, Sexuality , Medical compliance, Cardiac A&P, Angina signs & symptoms Psychosocial - Initial Assess - Target Goals Target Goals: Assess presence or absence of depression. Using a valid screening tool, maximizes coping skills. Positive support system - Stages of Change Stages of Change:: Action - Psychosocial Test Tool Used:: HANDS Depression Questionnaire Self-reported stress:: 6 Total Mood Screening Score:: 17 Self-Efficacy Score:: 7 - Intervention PS - Interventions: Yes Attend Stress Management Classes, Yes Uses Stress Management Skills, No Referral to Mental Health, No Referral to [facility] Case Management, No Referral to Physician - Education Gave educational materials for:: Coping techniques, Signs & symptoms of depression, Stress management, Relaxation techniques - Patient/Program Goal Preventative Medication(s):: Aspirin, JOSE inhibitor, Clopidogrel, Beta neo, Statin/lipid - Assistive Devices Assistive Devices:: None Fall Risk Assessed:: Yes Patient Health Questionnaire Initial Assessment 1. Little interest or pleasure in doing things: Not at all 2. Feeling down, depressed, or hopeless: Not at all 3. Trouble falling or staying asleep, or sleeping too much: Several days 4. Feeling tired or having little energy: Nearly every day - after 5pm 5. Poor appetite or overeating: Not at all 6. Feeling bad about yourself -- or that you are a failure or have let yourself or your family down: Not at all 7. Trouble concentrating on things, such as reading the newspaper or watching television: More than half the days 8. Moving or speaking so slowly that other people could have noticed. Or the opposite - being so fidgety or restless that you have been moving around a lot more than usual: Not at all 9. Thoughts that you would be better off , or of hurting yourself in some way: Not at all How difficult have these problems made it for you to do your work, take care of things at home, or get along with other people?: Somewhat difficult Total Score: 6 LE-Q SV Test - Statements CAD is a disease of the arteries in the heart: False Examples of risk factors for heart disease: True Angina is chest pain or discomfort: True The benefits of resistance training include: True Eating more meat and dairy products: False Anti-platelet medications such as aspirin are important: True The only effective way to manage stress: False An exercise warm-up slowly increases heart rate: I Don't Know Prepared, processed foods usually have high sodium: True Depression is common after a heart attack: True The statin medications lower cholesterol: True To control blood pressure, lower the amount of sodium: True If someone gets chest discomfort during walking: False Transfats are partially hydrogenated vegetable oils: I Don't Know Sleep apnea that is not treated increases the risk: False To control cholesterol, one should become a vegetarian: False Someone knows if he/she is exercising at the right level: False Diabetes cannot be prevented with exercise & health eating: False Stress is a large risk for heart attack: True A diet that can help lower blood pressure is rich in: True - Total Score Total Correct Responses: 17 Self-Efficacy Initial Assessment We would like to know how confident you are in doing certain activities. Please select your confidence level for:: Select your confidence level for the following using the scale 1-10 where 1 is not at all confident and 10 is totally confident. Your score is the average of all 6 responses. Fatigue: How confident are you that you can keep the fatigue caused by your disease from interfering with the things you want to do? Select Number: 5 Physical Discomfort or Pain: How confident are you that you can keep the physical discomfort or pain of your disease from interfering with the things you want to do? Select Number: 6 Emotional Distress: How confident are you that you can keep the emotional distress caused by your disease from interfering with the things you want to do? Select Number: 8 Other Symptoms or Health Problems: How confident are you that you can keep other symptoms or health problems from interfering with the things you want to do? Select Number: 8 Different Tasks and Activities: How confident are you that you can do the different tasks and activities needed to manage your health condition so as to reduce your need to see a doctor? Select Number: 8 Medication: How confident are you that you can do things other than just taking medication to reduce how much your illness affects your everyday life? Select Number: 9 Total Score:: 7 Nutrition Survey - Nutrition Survey Instructions Scoring Instructions: Scoring is as follows: Yes = 1 points. No = 0 point. Patient score that is >/=12 is considered to be at potential nutritional risk and could benefit from a referral to a registered dietitian. - Nutrition Survey Initial Have you lost >10 lbs over the past 2 months without trying?: No Are you following a special diet at home for diabetes, low fat, or low salt?: Yes Are you interested in meeting with a dietitian for help understanding your diet? : No Do you eat less than 3 meals a day?: Yes Do you eat fatty meats (wetzel, sausage, ribs, etc), fried foods, desserts, large amounts of salad dressings, margarine, butter, or cheese most days?: No Do you have food allergies? [Enter types in comment field]: Yes - Lactose allergy Do you eat in restaurants more than 3 times a week?: Yes Do you season food with salt, seasoning salt, or garlic salt?: No Do you used canned, boxed, frozen meals, or soups, seasoning packets?: No Total Score:: 4
[2018-05-06 13:49] VITALS: BP 140/72; BP 142/70; PULSE 92; O2SAT 95; BMI 29.2
== END ==
PROVIDERS: Family Provider Family Medicine; PCP Family Medicine; Visit Provider Internal Medicine Cardiovascular Disease
DX: I25.10 Atherosclerotic heart disease of native coronary artery without angina pectoris (principal); Z95.1 Presence of aortocoronary bypass graft; I25.5 Ischemic cardiomyopathy; I10 Essential (primary) hypertension; E78.5 Hyperlipidemia, unspecified; I25.2 Old myocardial infarction; G47.33 Obstructive sleep apnea (adult) (pediatric)

== ENCOUNTER 2018-05-30 08:33 | Outpatient (RCR) | payer MEDICARE, SELFPAY | END 2018-06-07 23:59 | LOC: DC 08:33 | PROVIDERS: Family Provider Family Medicine; PCP Family Medicine; Visit Provider Internal Medicine Cardiovascular Disease | DX: E11.9 Type 2 diabetes mellitus without complications (principal); E78.5 Hyperlipidemia, unspecified; I25.5 Ischemic cardiomyopathy; N18.2 Chronic kidney disease, stage 2 (mild); Z71.3 Dietary counseling and surveillance | CPT/HCPCS: G0108 ==

== ENCOUNTER 2018-06-07 13:00 | Outpatient (RCR) | payer MEDICARE, SELFPAY ==
--- NOTE | 2018-05-31 09:54 | PCM.CR.ITP ---
General Information - General Information Admitting Diagnosis: CABG - Education/Goals Cardiac Rehabilitation Goals: 1. Maintain the individual as the primary focus of care. 2. To improve the patient's quality of life. 3. Identification of cardiac risk factors and provide cardiac risk factor management. 4. Enhance the psychosocial status of the patient. 5. Reconditioning enough to allow the patient to resume customary activities. 6. Control symptoms of cardiac disease Scale for measuring improvement of personal goals: Enter appropriate number in Comments. 2 = Unchanged. 3 = Slightly Better. 4 = Moderate Improvement. 5 = Met my Goal Exercise - 30-day Assessment - Visit Date of Eval: 05/31/18 Session #:: 9 - Stages of Change Stages of Change:: Action - Exercise Prescription Mode:: Treadmill, NuStep, Arm Ergometer Frequency (x/week): 3 Duration:: 30 METs - Progression: 0.5-1 MET as tolerated: 2.5 Target Heart Rate:: 103-111 - Hypertension Resting Blood Pressure:: 112/62 Peak Exercise Blood Pressure:: 130/70 - Intervention Home Exercise/Activity Goal:: Sitting Time <3 hrs/day - Education Goals:: Warm-up, RPE LUDY Scale, S/S, Safe Exercise, Self-Monitoring - Exercise Program Goals Exercise Program Goals: Aerobic Activity >30 min, B/P <130/80 Nutrition - Initial Assessment - Program Goals Nutrition Program Goals: LDL <70. Total Cholesterol <200. HDL >45. Triglycerides <150. HgbA1C <7%. BMI <25 - Diabetes Do you monitor your blood sugar at home?: Yes Nutrition - 30-Day Assessment - Program Goals Nutrition Program Goals: LDL <70. Total Cholesterol <200. HDL >45. Triglycerides <150. HgbA1C <7%. BMI <25 - Visit Date of Eval: 05/31/18 - Stages of Change Stages of Change:: Action - Diabetes Diabetes:: Yes - Weight Management Weight:: 70.307 kg - Intervention Referral to dietitian:: No Referral to Diabetic Clinic:: No Will attend diet classes:: Yes - Education Attended class for:: Signs & symptoms of hypoglycemia, Signs & symptoms of hyperglycemia, Relate diabetes to coronary artery disease, Healthy eating Tobacco - Initial Assessment - Program Goals Tobacco Program Goals: Complete smoking cessation. Attend education classes. Improve Knowledge Test score - Learning Barriers Learning Barriers: Vision, Ready to Learn Tobacco - 30-Day Assessment - Program Goals Tobacco Program Goals: Complete smoking cessation. Attend education classes. Improve Knowledge Test score - Stage of Change Stages of Change:: Action - Learning Barriers Learning Barriers: Participates in education - Family Support Do you have family support?: Yes - Tobacco Use Tobacco Use: Non-smoker Do you use smokeless tobacco?: No - Intervention Smoking Cessation Referral:: No Individual Education/Counseling:: No Education Schedule Given:: Yes - Education Attended class for:: Tobacco triggers, Coronary artery disease, Risk factors, Sexuality, Medical compliance, Cardiac A&P, Angina signs & symptoms Psychosocial - Initial Assess - Target Goals Target Goals: Assess presence or absence of depression. Using a valid screening tool, maximizes coping skills. Positive support system - Psychosocial Test Tool Used:: HANDS Depression Questionnaire - Assistive Devices Fall Risk Assessed:: Yes Psychosocial - 30-Day Assess - Target Goals Target Goals: Assess presence or absence of depression. Using a valid screening tool, maximizes coping skills. Positive support system - Stages of Change Stages of Change:: Action - Psychosocial Test Tool Used:: HANDS Depression Questionnaire - Intervention PS - Interventions: Yes Attend Stress Management Classes, Yes Uses Stress Management Skills, No Referral to Mental Health, No Referral to [facility] Case Management, No Referral to Physician - Education Attended classes for:: Coping techniques, Signs & symptoms of depression, Stress management, Relaxation techniques - Assistive Devices Assistive Devices:: None Fall Risk Assessed:: Yes Patient Health Questionnaire 30-Day Re-eval Assessment 1. Little interest or pleasure in doing things: Not at all 2. Feeling down, depressed, or hopeless: Not at all 3. Trouble falling or staying asleep, or sleeping too much: Several days 4. Feeling tired or having little energy: Nearly every day 5. Poor appetite or overeating: Not at all 6. Feeling bad about yourself -- or that you are a failure or have let yourself or your family down: Not at all 7. Trouble concentrating on things, such as reading the newspaper or watching television: Several days 8. Moving or speaking so slowly that other people could have noticed. Or the opposite - being so fidgety or restless that you have been moving around a lot more than usual: Not at all 9. Thoughts that you would be better off , or of hurting yourself in some way: Not at all Total Score: 5 Self-Efficacy 30-Day Re-eval Assessment We would like to know how confident you are in doing certain activities. Please select your confidence level for:: Select your confidence level for the following using the scale 1-10 where 1 is not at all confident and 10 is totally confident. Your score is the average of all 6 responses. Fatigue: How confident are you that you can keep the fatigue caused by your disease from interfering with the things you want to do? Select Number: 6 Physical Discomfort or Pain: How confident are you that you can keep the physical discomfort or pain of your disease from interfering with the things you want to do? Select Number: 6 Emotional Distress: How confident are you that you can keep the emotional distress caused by your disease from interfering with the things you want to do? Select Number: 8 Other Symptoms or Health Problems: How confident are you that you can keep other symptoms or health problems from interfering with the things you want to do? Select Number: 8 Different Tasks and Activities: How confident are you that you can do the different tasks and activities needed to manage your health condition so as to reduce your need to see a doctor? Select Number: 8 Medication: How confident are you that you can do things other than just taking medication to reduce how much your illness affects your everyday life? Select Number: 9 Total Score:: 7
[2018-05-31 09:59] VITALS: BP 112/62; BP 130/70
== END 2018-06-07 23:59 ==
LOC: CR 13:00
PROVIDERS: Family Provider Family Medicine; PCP Family Medicine; Visit Provider Internal Medicine Cardiovascular Disease
DX: Z95.1 Presence of aortocoronary bypass graft (principal)
CPT/HCPCS: 93798

== ENCOUNTER 2018-07-03 14:15 | Outpatient (RCR) | payer MEDICARE, SELFPAY | END 2018-07-07 23:59 | LOC: DC 14:15 | PROVIDERS: Family Provider Family Medicine; PCP Family Medicine; Visit Provider Internal Medicine Cardiovascular Disease | DX: E11.9 Type 2 diabetes mellitus without complications (principal); E78.5 Hyperlipidemia, unspecified; I25.5 Ischemic cardiomyopathy; N18.2 Chronic kidney disease, stage 2 (mild); Z71.3 Dietary counseling and surveillance | CPT/HCPCS: 97802; 97803; G0109 ==

== ENCOUNTER 2018-07-05 13:00 | Outpatient (RCR) | payer MEDICARE, SELFPAY ==
[2018-06-08 00:20] VITALS: BP 112/62; BP 130/70
--- NOTE | 2018-07-03 09:56 | CR.ITP_ITS ---
General Information - General Information Admitting Diagnosis: CABG - Education/Goals Cardiac Rehabilitation Goals: 1. Maintain the individual as the primary focus of care. 2. To improve the patient's quality of life. 3. Identification of cardiac risk factors and provide cardiac risk factor management. 4. Enhance the psychosocial status of the patient. 5. Reconditioning enough to allow the patient to resume customary activities. 6. Control symptoms of cardiac disease Scale for measuring improvement of personal goals: Enter appropriate number in Comments. 2 = Unchanged. 3 = Slightly Better. 4 = Moderate Improvement. 5 = Met my Goal Exercise - 60-Day Assessment - Visit Date of Eval: 07/03/18 Session #:: 22 - Exercise Prescription Mode:: Treadmill, Biodyne, NuStep Frequency (x/week): 3 Duration:: 30 METs: 3.1 Target Heart Rate:: 118-126 Max HR 122 - Hypertension Resting Blood Pressure:: 122/56 Peak Exercise Blood Pressure:: 142/60 - Intervention Home Exercise/Activity Goal:: Sitting Time <3 hrs/day - Education Goals:: Warm-up, RPE LUDY Scale, S/S, Safe Exercise, Self-Monitoring - Exercise Program Goals Exercise Program Goals: Aerobic Activity >30 min, B/P <130/80 Nutrition - Initial Assessment - Program Goals Nutrition Program Goals: LDL <70. Total Cholesterol <200. HDL >45. Triglycerides <150. HgbA1C <7%. BMI <25 - Diabetes Do you monitor your blood sugar at home?: Yes Nutrition - 60-Day Assessment - Program Goals Nutrition Program Goals: LDL <70. Total Cholesterol <200. HDL >45. Triglycerides <150. HgbA1C <7%. BMI <25 - Visit Date of Eval: 07/03/18 - Stages of Change Stages of Change:: Action - Diabetes Diabetes:: Yes - Weight Management Weight:: 70.08 kg - Intervention Will attend diet classes:: Yes - Education Attended class for:: Signs & symptoms of hypoglycemia, Signs & symptoms of hyperglycemia, Relate diabetes to coronary artery disease, Healthy eating Tobacco - Initial Assessment - Program Goals Tobacco Program Goals: Complete smoking cessation. Attend education classes. Improve Knowledge Test score - Learning Barriers Learning Barriers: Vision, Ready to Learn Tobacco - 60-Day Assessment - Program Goals Tobacco Program Goals: Complete smoking cessation. Attend education classes. Improve Knowledge Test score - Stage of Change Stages of Change:: Action - Learning Barriers Learning Barriers: Participates in education - Family Support Do you have family support?: Yes - Tobacco Use Tobacco Use: Non-smoker Do you use smokeless tobacco?: No - Intervention Smoking Cessation Referral:: No Individual Education/Counseling:: No Education Schedule Given:: Yes - Education Attended class for:: Tobacco triggers, Coronary artery disease, Risk factors, Sexuality, Medical compliance, Cardiac A&P, Angina signs & symptoms Psychosocial - Initial Assess - Target Goals Target Goals: Assess presence or absence of depression. Using a valid screening tool, maximizes coping skills. Positive support system - Psychosocial Test Tool Used:: HANDS Depression Questionnaire - Assistive Devices Fall Risk Assessed:: Yes Psychosocial - 60-Day Assess - Target Goals Target Goals: Assess presence or absence of depression. Using a valid screening tool, maximizes coping skills. Positive support system - Stages of Change Stages of Change:: Action - Psychosocial Test Tool Used:: HANDS Depression Questionnaire - Intervention PS - Interventions: Yes Attend Stress Management Classes, Yes Uses Stress Management Skills, No Referral to Mental Health - Education Attended classes for:: Coping techniques, Signs & symptoms of depression, Stress management, Relaxation techniques - Assistive Devices Assistive Devices:: None Fall Risk Assessed:: Yes Patient Health Questionnaire 60-Day Re-eval Assessment 1. Little interest or pleasure in doing things: Not at all 2. Feeling down, depressed, or hopeless: Not at all 3. Trouble falling or staying asleep, or sleeping too much: Several days 4. Feeling tired or having little energy: More than half the days 5. Poor appetite or overeating: Not at all 6. Feeling bad about yourself -- or that you are a failure or have let yourself or your family down: Several days 7. Trouble concentrating on things, such as reading the newspaper or watching television: Not at all 8. Moving or speaking so slowly that other people could have noticed. Or the opposite - being so fidgety or restless that you have been moving around a lot more than usual: Not at all 9. Thoughts that you would be better off , or of hurting yourself in some way: Not at all How difficult have these problems made it for you to do your work, take care of things at home, or get along with other people?: Not difficult at all Total Score: 4 Self-Efficacy 60-Day Re-eval Assessment We would like to know how confident you are in doing certain activities. Please select your confidence level for:: Select your confidence level for the following using the scale 1-10 where 1 is not at all confident and 10 is totally confident. Your score is the average of all 6 responses. Fatigue: How confident are you that you can keep the fatigue caused by your disease from interfering with the things you want to do? Select Number: 7 Physical Discomfort or Pain: How confident are you that you can keep the physical discomfort or pain of your disease from interfering with the things you want to do? Select Number: 7 Emotional Distress: How confident are you that you can keep the emotional distr ess caused by your disease from interfering with the things you want to do? Select Number: 8 Other Symptoms or Health Problems: How confident are you that you can keep other symptoms or health problems from interfering with the things you want to do? Select Number: 8 Different Tasks and Activities: How confident are you that you can do the different tasks and activities needed to manage your health condition so as to reduce your need to see a doctor? Select Number: 9 Medication: How confident are you that you can do things other than just taking medication to reduce how much your illness affects your everyday life? Select Number: 9 Total Score:: 8
[2018-07-03 09:58] VITALS: BP 122/56; BP 142/60
== END 2018-07-07 23:59 ==
LOC: CR 13:00
PROVIDERS: Family Provider Family Medicine; PCP Family Medicine; Visit Provider Internal Medicine Cardiovascular Disease
DX: Z95.1 Presence of aortocoronary bypass graft (principal)
CPT/HCPCS: 93798

== ENCOUNTER 2018-07-11 08:51 | Outpatient (RCR) | payer MEDICARE, SELFPAY | END 2018-08-07 23:59 | LOC: DC 08:51 | PROVIDERS: Family Provider Family Medicine; PCP Family Medicine; Visit Provider Internal Medicine Cardiovascular Disease | DX: E11.9 Type 2 diabetes mellitus without complications (principal); E78.5 Hyperlipidemia, unspecified; I25.5 Ischemic cardiomyopathy; N18.2 Chronic kidney disease, stage 2 (mild); Z71.3 Dietary counseling and surveillance | CPT/HCPCS: G0109 ==

== ENCOUNTER 2018-08-07 13:00 | Outpatient (RCR) | payer MEDICARE, SELFPAY ==
[2018-07-08 00:22] VITALS: BP 122/56; BP 142/60
--- NOTE | 2018-08-02 10:40 | CR.ITP_ITS ---
Exercise - Final/Discharge - Visit Date of Eval: 08/02/18 - Stages of Change Stages of Change:: Action - Exercise Prescription Mode:: Treadmill, Biodyne, NuStep, Arm Ergometer Frequency (x/week): 3 Duration:: 35 METs: 3.5 Target Heart Rate:: 118-126 - Hypertension Do any of the following apply?: Yes Resting Blood Pressure:: 110/58 Peak Exercise Blood Pressure:: 152/74 - Intervention Home Exercise/Activity Goal:: Moderate Exercise 30 min/day x 5 days/wk - Education Goal Progress: Goal Met - Exercise Program Goals Exercise Program Goals: Aerobic Activity >30 min Nutrition - Initial Assessment - Program Goals Nutrition Program Goals: LDL <70. Total Cholesterol <200. HDL >45. Triglycerides <150. HgbA1C <7%. BMI <25 - Diabetes Do you monitor your blood sugar at home?: Yes Nutrition - Final Assessment - Program Goals Nutrition Program Goals: LDL <70. Total Cholesterol <200. HDL >45. Triglycerides <150. HgbA1C <7%. BMI <25 - Visit Date of Eval: 08/02/18 - Stages of Change Stages of Change:: Action - Diabetes Diabetes:: No - Weight Management Height: 5 ft Weight:: 154 lb 8 oz Body Fat %:: 29.2 - Intervention Referral to dietitian:: No Referral to Diabetic Clinic:: No Will attend diet classes:: Yes - Education Education Goal Reached?: Yes Tobacco - Initial Assessment - Program Goals Tobacco Program Goals: Complete smoking cessation. Attend education classes. Improve Knowledge Test score - Learning Barriers Learning Barriers: Vision, Ready to Learn Tobacco - Final Assessment - Program Goals Tobacco Program Goals: Complete smoking cessation. Attend education classes. Improve Knowledge Test score - Stage of Change Stages of Change:: Action - Family Support Do you have family support?: No - Tobacco Use Tobacco Use: Non-smoker Do you use smokeless tobacco?: No - Intervention Smoking Cessation Referral:: No Individual Education/Counseling:: No Education Schedule Given:: Yes - Education Education Goal Reached?: Yes Psychosocial - Initial Assess - Target Goals Target Goals: Assess presence or absence of depression. Using a valid screening tool, maximizes coping skills. Positive support system - Psychosocial Test Tool Used:: HANDS Depression Questionnaire - Assistive Devices Fall Risk Assessed:: Yes Psychosocial - Final Assessmen - Target Goals Target Goals: Assess presence or absence of depression. Using a valid screening tool, maximizes coping skills. Positive support system - Stages of Change Stages of Change:: Action - Psychosocial Test Tool Used:: HANDS Depression Questionnaire - Intervention PS - Interventions: Yes Attend Stress Management Classes, Yes Uses Stress Management Skills, No Referral to Mental Health, No Referral to [facility] Case Management, No Referral to Physician Patient Health Questionnaire Discharge Assessment 1. Little interest or pleasure in doing things: Not at all 2. Feeling down, depressed, or hopeless: Not at all 3. Trouble falling or staying asleep, or sleeping too much: Not at all 4. Feeling tired or having little energy: Several days 5. Poor appetite or overeating: Not at all 6. Feeling bad about yourself -- or that you are a failure or have let yourself or your family down: Not at all 7. Trouble concentrating on things, such as reading the newspaper or watching television: Not at all 8. Moving or speaking so slowly that other people could have noticed. Or the opposite - being so fidgety or restless that you have been moving around a lot more than usual: Not at all 9. Thoughts that you would be better off , or of hurting yourself in some way: Not at all How difficult have these problems made it for you to do your work, take care of things at home, or get along with other people?: Not difficult at all Total Score: 1 LE-Q SV Test - Statements CAD is a disease of the arteries in the heart: False Examples of risk factors for heart disease: True Angina is chest pain or discomfort: True The benefits of resistance training include: True Eating more meat and dairy products: False Anti-platelet medications such as aspirin are important: True The only effective way to manage stress: False An exercise warm-up slowly increases heart rate: True Prepared, processed foods usually have high sodium: True Depression is common after a heart attack: True The statin medications lower cholesterol: True To control blood pressure, lower the amount of sodium: True If someone gets chest discomfort during walking: False Transfats are partially hydrogenated vegetable oils: True Sleep apnea that is not treated increases the risk: False To control cholesterol, one should become a vegetarian: False Someone knows if he/she is exercising at the right level: True Diabetes cannot be prevented with exercise & health eating: False Stress is a large risk for heart attack: True A diet that can help lower blood pressure is rich in: True - Total Score Total Correct Responses: 20 Self-Efficacy Discharge Assessment We would like to know how confident you are in doing certain activities. Please select your confidence level for:: Select your confidence level for the following using the scale 1-10 where 1 is not at all confident and 10 is totally confident. Your score is the average of all 6 responses. Fatigue: How confident are you that you can keep the fatigue caused by your disease from interfering with the things you want to do? Select Number: 8 Physical Discomfort or Pain: How confident are you that you can keep the physical discomfort or pain of your disease from interfering with the things you want to do? Select Number: 8 Emotional Distress: How confident are you that you can keep the emotional d istress caused by your disease from interfering with the things you want to do? Select Number: 9 Other Symptoms or Health Problems: How confident are you that you can keep other symptoms or health problems from interfering with the things you want to do? Select Number: 9 Different Tasks and Activities: How confident are you that you can do the different tasks and activities needed to manage your health condition so as to reduce your need to see a doctor? Select Number: 10 Medication: How confident are you that you can do things other than just taking medication to reduce how much your illness affects your everyday life? Select Number: 10 Total Score:: 9 Nutrition Survey - Nutrition Survey Instructions Scoring Instructions: Scoring is as follows: Yes = 1 points. No = 0 point. Patient score that is >/=12 is considered to be at potential nutritional risk and could benefit from a referral to a registered dietitian. - Nutrition Survey Discharge Have you lost >10 lbs over the past 2 months without trying?: No Are you following a special diet at home for diabetes, low fat, or low salt?: Yes - low fat low sodium cardiac diet Are you interested in meeting with a dietitian for help understanding your diet?: No Do you eat less than 3 meals a day?: No Do you eat fatty meats (wetzel, sausage, ribs, etc), fried foods, desserts, large amounts of salad dressings, margarine, butter, or cheese most days?: Yes - once or twice a week, small portions Do you have food allergies? [Enter types in comment field]: No Do you eat in restaurants more than 3 times a week?: No Do you season food with salt, seasoning salt, or garlic salt?: No Do you used canned, boxed, frozen meals, or soups, seasoning packets?: Yes Total Score:: 3
[2018-08-02 10:41] VITALS: BP 110/58; BP 152/74
== END 2018-08-07 23:59 ==
LOC: CR 13:00
PROVIDERS: Family Provider Family Medicine; PCP Family Medicine; Referring Provider Internal Medicine Cardiovascular Disease; Visit Provider Internal Medicine Cardiovascular Disease
DX: Z95.1 Presence of aortocoronary bypass graft (principal)
CPT/HCPCS: 93798

== ENCOUNTER 2018-08-09 08:26 | Outpatient (RCR) | payer MEDICARE, SELFPAY ==
[2018-08-08 00:32] VITALS: BP 110/58; BP 152/74
== END 2018-09-06 23:59 ==
LOC: CR 08:26
PROVIDERS: Family Provider Family Medicine; PCP Family Medicine; Referring Provider Internal Medicine Cardiovascular Disease; Visit Provider Internal Medicine Cardiovascular Disease
DX: Z95.1 Presence of aortocoronary bypass graft (principal)
CPT/HCPCS: 93798

== ENCOUNTER 2018-08-14 09:25 | Outpatient (RCR) | payer MEDICARE, SELFPAY | END 2018-09-06 23:59 | LOC: DC 09:25 | PROVIDERS: Family Provider Family Medicine; PCP Family Medicine; Visit Provider Internal Medicine Cardiovascular Disease | DX: E11.9 Type 2 diabetes mellitus without complications (principal); E78.5 Hyperlipidemia, unspecified; I25.5 Ischemic cardiomyopathy; N18.2 Chronic kidney disease, stage 2 (mild); Z71.3 Dietary counseling and surveillance | CPT/HCPCS: G0109 ==

== ENCOUNTER 2018-09-12 13:00 | Outpatient (RCR) | payer MEDICARE, SELFPAY | END 2018-09-12 14:00 | disposition home or self-care (01) | LOC: DC 13:00 | PROVIDERS: Family Provider Family Medicine; PCP Family Medicine; Visit Provider Internal Medicine Cardiovascular Disease | DX: E11.9 Type 2 diabetes mellitus without complications (principal); E78.5 Hyperlipidemia, unspecified; I25.5 Ischemic cardiomyopathy; N18.2 Chronic kidney disease, stage 2 (mild); Z71.3 Dietary counseling and surveillance | CPT/HCPCS: 97803; G0109 ==

== ENCOUNTER → 2019-03-05 | Outpatient (CLI) | payer MEDICARE, SELFPAY ==
[2019-02-21 14:35] VITALS: BMI 32.5
--- NOTE | 2019-03-05 12:21 | STRESSREP_ITS ---
Stress Test Report Pharmacologic myocardial perfusion stress test. 74-year-old lady with a history of coronary artery bypass surgery. Medications: Plavix, metoprolol, metformin, rosuvastatin, aspirin. Stress protocol: Resting EKG demonstrates normal sinus rhythm with a rate of 64 bpm normal intervals are noted resting blood pressures 122/74 mmHg. 0.4 mg of regadenoson was infused per usual protocol followed by rapid intravenous saline flush injection continuous EKG monitoring was performed. The maximum heart rate attained 108 bpm which was 73% of maximum predicted heart rate the maximum workload was 1 metabolic equivalent. At rest there were no ST or T wave changes noted suggest abnormal flow reserve at peak infusion nonspecific ST-T wave fleming ges were noted with no meet the criteria for ischemia. No clinical angina was noted. Myocardial perfusion protocol. 11.6 mCi of technetium 99m sestamibi was injected at rest. 0.4 mg of regadenoson was infused per usual protocol peak infusion 32.6 mCi of technetium 99m sestamibi was injected stress images were obtained stress and rest images were reconstructed and compared in the short axis vertical long horizontal long axis. Gated images were also obtained Perfusion SPECT analysis: Review of the stress images demonstrate normal uptake of tracer noted in all areas of the myocardium. The resting images similarly demonstrate normal uptake of tracer noted in all areas of the myocardium. No areas of reversibility are noted suggest ischemia no previous infarct is noted. Gated SPECT analysis: The gated ejection fraction is noted to be 75%. Conclusion: Normal pharmacologic myocardial perfusion stress test. Preserved ejection fraction.
== END | disposition home or self-care (01) ==
PROVIDERS: Family Provider Family Medicine; PCP Family Medicine; Referring Provider Internal Medicine Cardiovascular Disease; Visit Provider Internal Medicine Cardiovascular Disease
DX: R07.9 Chest pain, unspecified (principal); Z95.1 Presence of aortocoronary bypass graft
CPT/HCPCS: 78452; 93017; A9500; A4216; J2785

== ENCOUNTER → 2020-08-03 17:23 | Outpatient (CLI) | payer MEDICARE, SELFPAY ==
[2020-04-01 13:59] VITALS: BMI 32.9
== END ==
PROVIDERS: PCP Family Medicine; Referring Provider Registered Nurse; Visit Provider Registered Nurse
DX: Z20.828 Contact with and (suspected) exposure to other viral communicable diseases (principal)
CPT/HCPCS: 87635; 87804; C9803; U0003

== ENCOUNTER 2020-08-05 11:18 | Inpatient (IN) | payer MEDICARE, SELFPAY ==
[2020-04-01 13:59] VITALS: BMI 32.9
[2020-08-05] VITALS (13 sets, daily range): BP systolic 111–128; BP diastolic 52–74; PULSE 75–92; RESP 11–24; TEMP 37.2–39.4; O2SAT 94–100; BMI 34.5; BMI 32.9
--- NOTE | 2020-08-05 11:56 | CT_ITS ---
STUDY: CT BRAIN WITHOUT CONTRAST REASON FOR EXAM: Female, 75 years old. S/P FALL TODAY CHILLS,WEAKNESS,FEVER RADIATION DOSAGE (If Supplied By Facility): CTDIvol = ( 44.99 ) mGy, DLP = ( 731.43 ) mGycm TECHNIQUE: Transaxial CT imaging of the brain was performed without administration of intravenous contrast material. Individualized dose optimization techniques were used for this CT. COMPARISON: No relevant priors. FINDINGS: Normal soft tissue structures. Normal calvarium. There is mild cerebral atrophy with widening of the extra-axial spaces and ventricular dilatation. Prominence of the CSF spaces overlying both frontal lobes. 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 Normal white matter tracts of the cerebral hemispheres. Normal basal ganglia and thalami. Normal brainstem. Normal cerebellum. There is no intracranial hemorrhage. There are no findings of an acute ischemic infarction. Normal visualized paranasal sinuses. CT/Brain/Head without Contrast IMPRESSION: Chronic involutional changes of the brain. Electronically Signed: Chaparro Cuevas, at 12:55 EDT , Service support ,
--- NOTE | 2020-08-05 11:57 | EKG12_ITS ---
Test Reason : WEAKNESS Blood Pressure : / mmHG Vent. Rate : 085 BPM Atrial Rate : 085 BPM P-R Int : 170 ms QRS Dur : 086 ms QT Int : 378 ms P-R-T Axes : 039 -32 047 degrees QTc Int : 449 ms Normal sinus rhythm Left axis deviation Cannot rule out Inferior infarct , age undetermined Abnormal ECG Confirmed by EMILIE ESCAMILLA, ALEXANDRA ([id number]), payroll processor AJAY CAMACHO ([id number]) on 08/06/2020 9:31:31 AM Referred By: TL Confirmed By:ALEXANDRA PHAN MD
--- NOTE | 2020-08-05 11:57 | RAD_ITS ---
STUDY: X-RAY CHEST REASON FOR EXAM: Female, 75 years old. INCREASED WEAKNESS AND CHILLS, FALL TODAY HITTING SHOULDER TECHNIQUE: Single AP portable view of the chest. COMPARISON: Comparison is made with prior study dated 03/17/2018. FINDINGS: EKG electrodes are seen. Stable mild increased markings at the lung bases suggestive of mild scarring. There is no demonstrated pleural abnormality. Sternal cerclage wires and vascular clips are present from a prior sternotomy and coronary artery bypass graft procedure (CABG). Normal mediastinum and tristen. Normal visualized pulmonary arteries. There is atherosclerotic calcification of the aortic arch with tortuosity. Normal visualized thoracic spine. There is degenerative osteoarthritis of the bilateral shoulders. Left calcific tendinitis. There is no demonstrated abnormality of the visualized soft tissue structures of the upper abdomen. RAD/Chest 1 View (Portable) IMPRESSION: Findings suggest a mild degree of linear scarring at the lung bases. Electronically Signed: Chaparro Cuevas, at 13:05 EDT , Service support ,
--- NOTE | 2020-08-05 11:58 | CT_ITS ---
STUDY: CT CERVICAL SPINE WITHOUT CONTRAST REASON FOR EXAM: Female, 75 years old. S/P FALL TODAY CHILLS,WEAKNESS,FEVER RADIATION DOSAGE (If Supplied By Facility): CTDIvol = ( 20.06 ) mGy, DLP = ( 404.51 ) mGycm TECHNIQUE: High resolution transaxial imaging was performed without contrast material. Sagittal and coronal images were reconstructed. Individualized dose optimization techniques were used for this CT. COMPARISON: None FINDINGS: Normal craniovertebral junction. There are degenerative changes of the anterior atlantoaxial articulation. Normal odontoid process. There is straightening of the normal cervical lordosis. Normal vertebral bodies and posterior osseous elements. C2-3: Facet joint osteoarthritis and hypertrophy. No significant neural foraminal stenosis is seen. C3-4: Bilateral facet joint osteoarthropathy. No significant neural foraminal stenosis seen. This is worse on the right side. C4-5: Marked degree of disc space narrowing with spondylosis. Uncovertebral arthrosis with bilateral neural foraminal stenosis to a moderate degree. C5-6: Marked degree of disc space narrowing and spondylosis. Uncovertebral arthrosis. Moderate degree of bilateral neural foraminal stenosis. C6-7: Marked degree of disc space narrowing and spondylosis. Uncovertebral arthrosis. Central canal stenosis due to a central prominent osteophytes. C7-T1: Normal endplates. Normal disc height and morphology. Normal central canal and intervertebral neuroforamina. Normal visualized soft tissue structures. CT/Spine Cervical without Contras IMPRESSION: Multilevel degenerative changes, as described above. Electronically Signed: Chaparro Cuevas, at 13:04 EDT , Service support ,
--- NOTE | 2020-08-05 12:00 | RAD_ITS ---
STUDY: X-RAY - RIGHT SHOULDER REASON FOR EXAM: Female, 75 years old. FALL TODAY, BRUISING PAIN TOP OF SHOULDER TECHNIQUE: 4 view(s) of the shoulder. COMPARISON: None. FINDINGS: There is moderate degenerative arthrosis of the glenohumeral articulation. Prior resection of the lateral aspect of the right clavicle. Normal acromion. Evidence of prior rotator cuff surgery. The soft tissue structures are unremarkable. Normal visualized pulmonary apex. RAD/Shoulder min 2 Views IMPRESSION: Degenerative changes. Postoperative changes as described. No acute abnormality is seen. Electronically Signed: Chaparro Cuevas, at 13:04 EDT , Service support ,
--- NOTE | 2020-08-05 12:12 | ED.RN ---
ATTEMPTED MULTIPLE TIMES TO GET THROUGH TO DR HIDALGO OFFICE. UNABLE TO GET THROUGH OR KEEP GETTING DISCONNECTED
--- NOTE | 2020-08-05 12:16 | ED.DCSUM_ITS ---
History of Present Illness Chief Complaint: Weakness Informant: Patient Onset: Days - 5 Narrative: Patient presenting with Covid symptoms starting 5 days ago. States chills and myalgias with fevers. States intermittent headache and dizziness. She reports dry cough. Diarrhea x1 this morning. Denies any loss of taste or smell. Today while on the commode, she states she had a syncopal episode. History of coronary disease with bypass 2 years ago after failed stenting x2. She is followed by Dr. Tejeda. She denies any chest pains or shortness of breath. She is mild pain in the right shoulder. She is on Plavix. No neck or back pain. Does not ambulate with any assistance currently. She is helped out by her significant other to the living room and EMS was contacted. Denies urinary symptoms. Denies recent antibiotics. Reports had some Covid testing 2 days ago with no known results. No known Covid exposures. Review of patient's lab work from 2 days ago had influenza that was negative, Covid test is still pending. Prior similar symptoms: No Past Medical History - Allergies and Home Meds Allergies/Adverse Reactions: Allergies Sulfa (Sulfonamide Antibiotics) Allergy (Verified 08/05/20 11:24) PT UNSURE OF REACTION ticagrelor [From Brilinta] Allergy (Verified 04/01/20 13:59) Shortness of breath atorvastatin Adverse Reaction (Severe, Verified 04/01/20 13:59) Myalgias isosorbide Adverse Reaction (Severe, Verified 04/01/20 13:59) Severe headaches & nausea lovastatin Adverse Reaction (Severe, Verified 04/01/20 13:59) Severe Myalgias simvastatin Adverse Reaction (Severe, Verified 04/01/20 13:59) Myalgias lactose Adverse Reaction (Verified 04/01/20 13:59) Nausea nitroglycerin Adverse Reaction (Verified 08/05/20 11:24) LOW BP Lvbxdnd-Kru-Ods Reductase Inhibitor Adverse Reaction (Verified 04/01/20 13:59) Pain in joints CREATINE Allergy (Uncoded 04/01/20 13:59) Unknown Primary Care Physician: Chandan Sanchez MD [Primary Care Provider] - Past Medical History: - - Coronary disease, hypertension, hyperlipidemia, NSTEMI, CHF Surgical History: rotator cuff repair, tonsillectomy, - Smoking Status: Former smoker - Family History Maternal Family History: Family History (Last Reviewed 08/05/20 @ 14:[address] Curt Morgan MD) Mother CAD (coronary artery disease) Family History: Reports: Heart Disease Paternal Family History: Family History (Last Reviewed 08/05/20 @ 14:[address] Curt Morgan MD) Mother CAD (coronary artery disease) Family History: Reports: Hypertension Sibling Family History: Family History (Last Reviewed 08/05/20 @ 14:[address] Curt Morgan MD) Mother CAD (coronary artery disease) Family History: Reports: Heart Disease - [place] Review of Systems General: Reports: Chills, Fever. Denies: Sweats Eyes: Denies: Visual changes - bilaterally, Diplopia ENT: Denies: Rhinorrhea, Sore throat Cardiovascular: Denies: Chest pain, Palpitations Respiratory: Reports: Cough. Denies: Dyspnea, Dyspnea on exertion Gastrointestinal: Reports: Diarrhea. Denies: Abdominal pain, Nausea, Vomiting, Melena, Hematochezia Genitourinary: Denies: Dysuria, Hematuria, Frequency Musculoskeletal: Reports: Myalgias. Denies: Back pain, Extremity Pain Skin: Denies: Rash, Wounds Neurological: Reports: Headache, Weakness. Denies: Numbness Physical Exam Vital Signs/Narrative: Vital Signs Temp Pulse Resp BP Pulse Ox 08/05/20 12:03 99.9 F H 82 17 127/52 H 95 08/05/20 11:19 99.9 F H 82 17 127/52 H 95 Inital Vital Signs reviewed: Yes General: Well nourished, Well developed, No Acute Distress Head: Normocephalic, Atraumatic Eyes: Perrl, EOMI ENT: No rhinorrhea, Dry mucous membranes Neck: Supple, Nontender, - - No meningismus Cardiovascular: Regular rate, Regular rhythm, No murmurs Respiratory: No distress, CTA bilaterally, Chest nontender Abdomen: Soft, Nontender, Nondistended, Normal bowel sounds Back: Nontender, Normal Inspection Extremities: Nontender, No edema Skin: Normal color, No rash Neurological: Alert, Oriented x3, Cranial nerves II-XII grossly intact, Normal Strength, Normal Sensation Psychological: Normal affect, Normal Mood Diagnostic/Tx/Re-eval Clinical Impression(s) from Imaging Studies Brain CT 08/05/20 11:56 IMPRESSION: Chronic involutional changes of the brain. Electronically Signed: Chaparro Cuevas, at 12:55 EDT , Service support , Chest X-Ray 08/05/20 11:57 IMPRESSION: Findings suggest a mild degree of linear scarring at the lung bases. Electronically Signed: Chaparro Wuwalter, at 13:05 EDT , Service support , Cervical Spine CT 08/05/20 11:58 IMPRESSION: Multilevel degenerative changes, as described above. Electronically Signed: Chaparro Wuwalter, at 13:04 EDT , Service support , Shoulder X-Ray 08/05/20 12:00 IMPRESSION: Degenerative changes. Postoperative changes as described. No acute abnormality is seen. Electronically Signed: Chaparro Cuevas, at 13:04 EDT , Service support , Abnormal Lab Results 08/05/20 08/05/20 08/05/20 11:38 11:38 11:38 WBC 5.9 RBC 4.91 Hgb 14.6 Hct 45.7 MCV 93.1 MCH 29.7 MCHC 31.9 L RDW Std Deviation 47.8 H RDW Coeff of Abigail 14.0 Plt Count 229 MPV 10.1 Immature Gran % (Auto) 0.300 Neut % (Auto) 72.3 H Lymph % (Auto) 16.7 L Ralls % (Auto) 9.9 Eos % (Auto) 0.5 Baso % (Auto) 0.3 Absolute Neuts (auto) 4.2 Absolute Lymphs (auto) 0.98 Nucleated RBC % 0 PT 12.8 INR 1.0 APTT 33.2 Sodium 130 L Potassium 3.5 Chloride 96 L Carbon Dioxide 26.0 Anion Gap 8 BUN 32 H Creatinine 1.76 H Estim Creat Clear Calc 34.93 Est GFR (MDRD) Af Amer 36 L Est GFR (MDRD) Non-Af 30 L BUN/Creatinine Ratio 18.2 Glucose 224 H Lactic Acid Calcium 8.5 Total Bilirubin 0.90 AST 30 ALT 21 Alkaline Phosphatase 59 Total Protein 7.5 Albumin 3.4 Globulin 4.1 Albumin/Globulin Ratio 0.8 L Urine Color Urine Clarity Urine pH Ur Specific [place] Urine Protein Urine Glucose (UA) Urine Ketones Urine Occult Blood Urine Nitrite Urine Bilirubin Urine Urobilinogen Ur Leukocyte Esterase Urine RBC Urine WBC Ur Squamous Epith Cells Urine Bacteria Urine Mucus 08/05/20 08/05/20 11:38 13:05 WBC RBC Hgb Hct MCV MCH MCHC RDW Std Deviation RDW Coeff of Abigail Plt Count MPV Immature Gran % (Auto) Neut % (Auto) Lymph % (Auto) Ralls % (Auto) Eos % (Auto) Baso % (Auto) Absolute Neuts (auto) Absolute Lymphs (auto) Nucleated RBC % PT INR APTT Sodium Potassium Chloride Carbon Dioxide Anion Gap BUN Creatinine Estim Creat Clear Calc Est GFR (MDRD) Af Amer Est GFR (MDRD) Non-Af BUN/Creatinine Ratio Glucose Lactic Acid 2.1 H* Calcium Total Bilirubin AST ALT Alkaline Phosphatase Total Protein Albumin Globulin Albumin/Globulin Ratio Urine Color Yellow Urine Clarity Cloudy Urine pH 5.0 Ur Specific [place] 1.025 Urine Protein 30 H Urine Glucose (UA) Normal Urine Ketones 15 H Urine Occult Blood 50 H Urine Nitrite Negative Urine Bilirubin Negative Urine Urobilinogen Normal Ur Leukocyte Esterase 100 H Urine RBC 0-5 SEEN Urine WBC 0-5 SEEN Ur Squamous Epith Cells 5-10 SEEN Urine Bacteria 1+ Urine Mucus 1+ - Medical Decision Making Patient had an elevated temp of 99.9, heart rate respiratory rate normal ranges. Present with Covid symptoms along with syncope. EKG shows no acute changes QTC 449. Started on gentle fluids with clinical dehydration due to history of CHF. Labs obtained noted acute kidney injury creatinine 1.7. Her previous one 2 years ago was 1.03. With her syncope with a fall right shoulder injury. Image studies obtained CT head and neck negative. Right shoulder and chest x-ray negative. Patient's temperature went up to 101 while in the ED. Cultures are pending, given Tylenol. Urine noted signs of infection culture sent she started on Rocephin. Covid testing is pending results at this time. With her syncopal episode, BLADE, Covid symptoms I did speak with hospitalist, Dr. Morgan for admission pending covid results. 1525: Results of Covid returned positive. She will be admitted to the [place] floor on telemetry. ED Disposition - Plan for ED Patient: Disposition: Acute Care Hospital [facility] Diagnosis: Syncope, Acute kidney injury, Fever, Lactic acidosis, UTI (urinary tract infection), Weakness, Hyponatremia, Contusion of right shoulder, COVID-19 virus infection Referrals: Chandan Sanchez MD [Primary Care Provider] -
[2020-08-05 12:53] LABS: Absolute Lymphocyte Count 0.98 X10^3/uL (0.83-4.51); Absolute Neutrophil Count 4.2 X10^3/uL (2.0-7.7); Basophil# 0.02 X10^3/uL; Basophil% 0.3 % (0-1); Eosinophil# 0.03 X10^3/uL; Eosinophils% 0.5 % (0-5); Hematocrit 45.7 % (37-47); Hemoglobin 14.6 g/dL (12.0-15.0); Lymphocyte # 0.98 X10^3/ul (4.0); Lymphocyte % 16.7 % (19-41); Mean Corp Hgb Conc 31.9 g/dL (32-36); Mean Corpuscular Hgb 29.7 pg (27.0-32.0); Mean Corpuscular Volume 93.1 fL (81-99); Mean Platelet Vol. 10.1 fl (6.2-12.0); Monocyte# 0.58 X10^3/uL; Monocyte% 9.9 % (0-10); NRBC Flagged by Analyzer 0 % (0-5); Neutrophil # 4.23 X10^3/uL (2.7-7.7); Neutrophil % 72.3 % (47-70); Platelet Count 229 K/mm3 (150-450); RBC Distribution Width SD 47.8 fl (35.1-43.9); Red Blood Count 4.91 M/mm3 (4.2-5.4); White Blood Count 5.9 K/mm3 (4.4-11.0)
[2020-08-05 13:01] LABS: Prothrombin Time (Protime)PT. 12.8 SECONDS (11.7-14.9)
[2020-08-05 13:02] LABS: Partial Thromboplast Time 33.2 Seconds (24.1-36.2)
[2020-08-05 13:05] LABS: ALB/GLOB Ratio 0.8 RATIO (0.9-2.4); AST(SGOT) 30 U/L (15-37); Alanine Aminotransfer ALT/SGPT 21 U/L (13-56); Albumin, Serum 3.4 g/dL (3.2-5.0); Alkaline Phosphatase 59 U/L (45-117); Anion Gap 8 (5-15); BUN 32 mg/dL (7-18); BUN/Creat Ratio 18.2 RATIO (10-20); Calcium,Total 8.5 mg/dL (8.5-10.1); Chloride 96 mmol/L (98-107); Creatinine, Serum 1.76 mg/dL (0.55-1.02); EST Glomerular Filtration Rate 30 mL/min (>60); Est Glom Filt Rate - Afr Amer 36 mL/min (>60); Estimated Creatinine Clearance 34.93 ml/min; Globulin 4.1 g/dL (2.2-4.2); Glucose 224 mg/dL (74-106); Potassium 3.5 mmol/L (3.5-5.1); Protein, Total 7.5 g/dL (6.4-8.2); Sodium Level 130 mmol/L (136-145)
[2020-08-05 13:09] LABS: Lactic Acid 2.1 mmol/L (0.4-1.9)
[2020-08-05] MEDS: 0.9% Normal Saline 1,000 ML 150 ML IV (13:11)
[2020-08-05 13:27] LABS: Color, Urine Yellow (Yellow); Glucose, Dipstick Normal (Normal); Ketone-Dipstick 15 mg/dl (Negative); Leukocyte Esterase-Dipstick 100 /ul (Negative); Nitrite-Dipstick Negative (Negative); Occult Blood-Urine 50 /ul (Negative); Protein-Dipstick 30 mg/dl (Negative); Specific Gravity, Urine 1.025 (1.002-1.030); Urine Bilirubin Dipstick Negative (Negative); Urine Clarity Cloudy (Clear); Urine Urobilinogen Normal (Normal)
[2020-08-05] MEDS: Acetaminophen 500 MG Tablet 1000 MG PO (13:28)
[2020-08-05 13:40] LABS: White Blood Cells 0-5 SEEN /hpf (0-5)
[2020-08-05 13:41] LABS: Red Blood Cells-Urine 0-5 SEEN /hpf (0-5); Squamous Epithelial Cells - UA 5-10 SEEN /hpf (5-10)
[2020-08-05 13:42] LABS: Bacteria 1+ /hpf (None Seen); Mucous, Urine 1+ /hpf (<or=2+)
--- NOTE | 2020-08-05 14:15 | ED.RN ---
RN AT BEDSIDE, PT PULSE OX 88%. PT IS ALERT AD TALKING. RN PLACED PT ON 2L NC, PULSE OX IS NOW 95%. DR DOE NOTIFIED AT THIS TIME.
[2020-08-05] MEDS: Ceftriaxone 1 GM/50 ML BAG IV (14:16)
--- NOTE | 2020-08-05 14:33 | PCM.HP.STD ---
Problem List (1) Hyponatremia Status: Acute (2) Syncope Status: Acute (3) Acute kidney injury Status: Acute (4) Ischemic cardiomyopathy Status: Chronic (5) Atherosclerosis of coronary artery of [place] heart without angina pectoris Status: Chronic Qualifiers: Coronary Disease-Associated Artery/Lesion type: [place] artery Qualified Code(s): I25.10 - Atherosclerotic heart disease of [place] coronary artery without angina pectoris Comment: CABG x 1- ODEN to LAD 03/22/18 TRES-Mid LAD w/ Synergy 2.5 X 28 mm, TRES-Prox LAD w/ Synergy 3.0 X 16 mm 05/29/17 (6) NSTEMI (non-ST elevated myocardial infarction) Status: Chronic Comment: 05/2017, 03/17/2018 (7) History of coronary artery stent placement Status: Chronic Comment: TRES-Mid LAD w/ Synergy 2.5 X 28 mm, TRES-Prox LAD w/ Synergy 3.0 X 16 mm 05/29/17 (8) H/O coronary artery bypass surgery Status: Chronic Comment: CABG x 1- ODEN to LAD 03/22/18 (9) Essential (primary) hypertension Status: Chronic (10) Hyperlipemia Status: Chronic Qualifiers: Hyperlipidemia type: pure hypercholesterolemia Qualified Code(s): E78.00 - Pure hypercholesterolemia, unspecified; E78.0 - Pure hypercholesterolemia History of Present Illness Date of Admission: 08/05/20 Chief Complaint: Syncope, weakness, fever, malaise. The patient is a 75 year old F with past medical history as mentioned above presented to the emergency room because of multiple complaints. Her main presenting complaint today is syncopal episode. She states that she was sitting on the commode, she passed out and she is not sure for how long. She denied having any preceding symptoms such as chest pain, palpitation, dizziness or lightheadedness. Her other complaints are fever which has been going on for the last 5 days, associated with chills and myalgias, as well as headache and without aggravating or relieving factors. She reported mild cough with minimal clear sputum. She stated that her significant other was diagnosed with COVID-19 couple weeks ago. She had a history of CAD status post stents and CABG and she has been on aspirin, Plavix, beta-blockers, losartan. She had a history of hypertension which has been under control with HCTZ and metoprolol as well as losartan. She had a history of type 2 diabetes mellitus, has been on insulin and Metformin and according to the patient, her blood sugar has been under fair control. In the emergency department, patient has spikes a fever of up to 101.5 Fahrenheit. Blood pressure and heart rate were stable, pulse ox was 95% on room air and then she required oxygen of 2 L. Routine blood work was remarkable for sodium of 130, BUN of 32, creatinine 1.76. Lactic acid was 2.1. LFT was unremarkable. Urinalysis showed no evidence of acute infection. COVID-19 PCR came back positive. EKG revealed normal sinus rhythm, no evidence of acute ischemic changes or cardiac arrhythmias. CT scan brain showed no acute findings. Chest x-ray showed no obvious infiltrate. CT scan cervical spine showed multilevel degenerative changes, no acute fractures or dislocations. Lateral x-ray done because of fall and right shoulder bruising and pain and showed no acute fractures. She is being admitted for COVID-19, acute kidney injury with hyponatremia and syncopal episode. Past Medical History Past Medical History (Chronic Problems): Chronic Problems (Last Updated 08/05/20 @ 14:[address] Curt Morgan MD) Ischemic cardiomyopathy (Chronic) Type 2 diabetes mellitus (Chronic) Atherosclerosis of coronary artery of [place] heart without angina pectoris (Chronic) CABG x 1- ODEN to LAD 03/22/18 TRES-Mid LAD w/ Synergy 2.5 X 28 mm, TRES-Prox LAD w/ Synergy 3.0 X 16 mm 05/29/17 NSTEMI (non-ST elevated myocardial infarction) (Chronic 03/17/18) 05/2017, 03/17/2018 History of coronary artery stent placement (Chronic 05/29/17) TRES-Mid LAD w/ Synergy 2.5 X 28 mm, TRES-Prox LAD w/ Synergy 3.0 X 16 mm 05/29/17 H/O coronary artery bypass surgery (Chronic 03/22/18) CABG x 1- ODEN to LAD 03/22/18 Essential (primary) hypertension (Chronic) Hyperlipemia (Chronic) Medical History: Medical History (Last Updated 08/05/20 @ 14:[address] Curt Morgan MD) Atherosclerosis of coronary artery of [place] heart without angina pectoris (Chronic) I25.10 CABG x 1- ODEN to LAD 03/22/18 TRES-Mid LAD w/ Synergy 2.5 X 28 mm, TRES-Prox LAD w/ Synergy 3.0 X 16 mm 05/29/17 NSTEMI (non-ST elevated myocardial infarction) (Chronic) Onset Date: 03/17/18 I21.4 05/2017, 03/17/2018 Essential (primary) hypertension (Chronic) I10 Hyperlipemia (Chronic) E78.5 Central sleep apnea G47.31 Hypothyroidism E03.9 Type 2 diabetes mellitus E11.9 Ischemic cardiomyopathy I25.5 Allergies Sulfa (Sulfonamide Antibiotics) Allergy (Verified 08/05/20 11:24) PT UNSURE OF REACTION ticagrelor [From Brilinta] Allergy (Verified 04/01/20 13:59) Shortness of breath atorvastatin Adverse Reaction (Severe, Verified 04/01/20 13:59) Myalgias isosorbide Adverse Reaction (Severe, Verified 04/01/20 13:59) Severe headaches & nausea lovastatin Adverse Reaction (Severe, Verified 04/01/20 13:59) Severe Myalgias simvastatin Adverse Reaction (Severe, Verified 04/01/20 13:59) Myalgias lactose Adverse Reaction (Verified 04/01/20 13:59) Nausea nitroglycerin Adverse Reaction (Verified 08/05/20 11:24) LOW BP Qgtjgus-Ikt-Ziq Reductase Inhibitor Adverse Reaction (Verified 04/01/20 13:59) Pain in joints CREATINE Allergy (Uncoded 04/01/20 13:59) Unknown Home Medications: Ambulatory Orders Medication Instructions Recorded Clopidogrel Bisulfate [Plavix] 75 mg PO DAILY 07/13/17 Metoprolol Tartrate [Lopressor 25 mg PO BID 03/18/18 (beta neo)] insulin glargine U-300 conc 300 18 unit SC QDAY ml 04/11/18 unit/mL (1.5 mL) subcutaneous pen metformin 500 mg tablet 500 mg PO BID 04/11/18 hydrochlorothiazide 25 mg tablet 25 mg PO DAILY #90 tab 09/19/18 docusate sodium 100 mg capsule 100 mg PO BID PRN cap 02/20/19 insulin aspart U-100 100 unit/mL See Rx Instructions SC QACHS ml 02/20/19 (3 mL) subcutaneous pen levothyroxine 75 mcg tablet 88 mcg PO DAILY tab 02/21/19 ezetimibe 10 mg tablet 10 mg PO DAILY 08/22/19 losartan 100 mg tablet 100 mg PO QDAY #90 tab 10/27/19 aspirin 81 mg tablet,delayed 81 mg PO DAILY tab 04/01/20 release cetirizine 10 mg capsule 10 mg PO DAILY cap 04/01/20 Surgical History: Surgical History (Last Reviewed 08/05/20 @ 14:[address] Curt Morgan MD) History of coronary artery stent placement (Chronic) Onset Date: 05/29/17 Z95.5 TRES-Mid LAD w/ Synergy 2.5 X 28 mm, TRES-Prox LAD w/ Synergy 3.0 X 16 mm 05/29/17 H/O coronary artery bypass surgery (Chronic) Onset Date: 03/22/18 Z95.1 CABG x 1- ODEN to LAD 03/22/18 H/O ovarian cystectomy Z98.890, Z87.42 History of bladder suspension procedure Z98.890, Z87.448 History of hysterectomy Z90.710 History of repair of rotator cuff Z98.890 History of tonsillectomy Z90.89 Surgical History: rotator cuff repair, tonsillectomy, - Psychiatric History: Depression [employer] History: ovarian cysts Lives: Spouse/ Significant Other Smoking Status: Former smoker Alcohol: None Drugs: None - *Family History Maternal Family History: Family History (Last Reviewed 08/05/20 @ 14:[address] Curt Morgan MD) Mother CAD (coronary artery disease) History Items: Heart Disease Paternal Family History: Family History (Last Reviewed 08/05/20 @ 14:[address] Curt Morgan MD) Mother CAD (coronary artery disease) History Items: Hypertension Sibling Family History: Family History (Last Reviewed 08/05/20 @ 14:[address] Curt Morgan MD) Mother CAD (coronary artery disease) History Items: Heart Disease - [place] Review of Systems Constitutional: Reports: Chills, Fever, Malaise, Weakness. Denies: Anorexia Eyes: Denies: Blurred vision, Double vision, Drainage, Redness, Vision Change HEENT: Reports: Head Aches. Denies: Difficulty Hearing, Dysphasia, Ear Pain, Eye Pain, Nasal Congestion, Sore Throat Cardiovascular: Reports: Syncope. Denies: Chest Pain, Claudication, Chest Pressure, Edema, Heaviness, Palpitations, Paroxysmal Noc. Dyspnea Respiratory: Reports: Cough. Denies: Hemoptysis, Pleuritic Pain, Shortness of Breath, Sputum production, Wheezing Gastrointestinal: Denies: Abdominal Pain, Constipation, Diarrhea, Nausea, Vomiting Genitourinary: Denies: Dysuria, Frequency, Hematuria Musculoskeletal: Denies: Arm Pain, Back Pain, Foot Pain Skin: Denies: Dryness, Rash Neurological: Denies: Balance problems, Double vision, Change in Speech, Slurred speech, Confusion, Focal weakness, Incoordination, Numbness Psychiatric: Denies: Anxiety, Depression Endocrine: Denies: Change in Body Habitus, Polydipsia, Polyuria VTE Information - Inpt Only VTE Present on Admission: No VTE Mechan Device Prophylaxis: None VTE Pharm Prophylaxis ordered?: Yes Patient Problems: Active and Suspected Problems (Last Updated 08/05/20 @ 14:[address] Curt Morgan MD) COVID-19 virus infection (Acute) Hyponatremia (Acute) Syncope (Acute) Acute kidney injury (Acute) - Physical Exam Vitals/I&O's: Vital Signs Temp Pulse Resp BP Pulse Ox 101.1 F H 92 12 126/65 H 95 08/05/20 14:17 08/05/20 14:17 08/05/20 14:17 08/05/20 14:17 08/05/20 14:17 Oxygen Flow Rate (L/min) 2 Oxygen Delivery Method Nasal Cannula Weight: 173 lb 15.115 oz Body Mass Index (BMI) 34.5 General: Alert, Oriented x3, Cooperative, No apparent distress HEENT: PERRLA, EOMI, Normocephalic, - - Minimal left forehead bruise. Oral: Moist Mucosa, No Gingival or Mucosal Lesions/ Ulcerations Neck: Supple, No JVD, Negative Carotid Bruits, Trachea Midline, Thyroid Normal Size and Texture Lungs: Clear to auscultation, Normal air movement, No rhonchi, No wheeze, No rales, Diminished Cardiovascular: Regular rate, Regular Rhythm, Normal S1, Normal S2, PMI Normal Abdomen: Bowel Sounds Present, Soft, Non Tender, Non-Distended, No Hepato-splenomegaly Extremities: No clubbing, No cyanosis, No edema Skin: No rashes, No breakdown Lymphatic: No Cervical, Supraclavicular, or Inguinal Adenopathy Neurological: Cranial nerves II-XII grossly intact, Motor Exam 5/5 strength throughout Psych/Mental Status: Normal Affect, Appropriate, Alert and oriented to time, place, person, mood and affect Laboratory Results 08/05/20 11:38: WBC 5.9, RBC 4.91, Hgb 14.6, Hct 45.7, MCV 93.1, MCH 29.7, MCHC 31.9 L, RDW Std Deviation 47.8 H, RDW Coeff of Abigail 14.0, Plt Count 229, MPV 10.1, Immature Gran % (Auto) 0.300, Neut % (Auto) 72.3 H, Lymph % (Auto) 16.7 L, [place] % (Auto) 9.9, Eos % (Auto) 0.5, Baso % (Auto) 0.3, Absolute Neuts (auto) 4.2, Absolute Lymphs (auto) 0.98, Nucleated RBC % 0 08/05/20 11:38: PT 12.8, INR 1.0, APTT 33.2 08/05/20 11:38: Sodium 130 L, Potassium 3.5, Chloride 96 L, Carbon Dioxide 26.0, Anion Gap 8, BUN 32 H, Creatinine 1.76 H, Estim Creat Clear Calc 34.93, Est GFR (MDRD) Af Amer 36 L, Est GFR (MDRD) Non-Af 30 L, BUN/Creatinine Ratio 18.2, Glucose 224 H, Calcium 8.5, Total Bilirubin 0.90, AST 30, ALT 21, Alkaline Phosphatase 59, Total Protein 7.5, Albumin 3.4, Globulin 4.1, Albumin/Globulin Ratio 0.8 L 08/05/20 11:38: Lactic Acid 2.1 H* 08/05/20 12:32: COVID-19 ([facility]) Pending 08/05/20 13:05: Urine Color Yellow, Urine Clarity Cloudy, Urine pH 5.0, Ur Specific [place] 1.025, Urine Protein 30 H, Urine Glucose (UA) Normal, Urine Ketones 15 H, Urine Occult Blood 50 H, Urine Nitrite Negative, Urine Bilirubin Negative, Urine Urobilinogen Normal, Ur Leukocyte Esterase 100 H, Urine RBC 0-5 SEEN, Urine WBC 0-5 SEEN, Ur Squamous Epith Cells 5-10 SEEN, Urine Bacteria 1+, Urine Mucus 1+ Clinical Impression(s) from Imaging Studies Brain CT 08/05/20 11:56 IMPRESSION: Chronic involutional changes of the brain. Electronically Signed: Chaparro Faith, at 12:55 EDT , Service support , Chest X-Ray 08/05/20 11:57 IMPRESSION: Findings suggest a mild degree of linear scarring at the lung bases. Electronically Signed: Chaparro Cuevas, at 13:05 EDT , Service support , Cervical Spine CT 08/05/20 11:58 IMPRESSION: Multilevel degenerative changes, as described above. Electronically Signed: Chaparro Cuevas, at 13:04 EDT , Service support , Shoulder X-Ray 08/05/20 12:00 IMPRESSION: Degenerative changes. Postoperative changes as described. No acute abnormality is seen. Electronically Signed: Chaparro Faith, at 13:04 EDT , Service support , Current Medications Sodium Chloride () 1,000 mls @ 150 mls/hr IV .[id number] [facility] Last Admin: 08/05/20 13:11 Dose: 150 mls/hr Documented by: Assessment/Plan All Active Problems (Last Updated 08/05/20 @ 14:[address] Curt Morgan MD) COVID-19 virus infection (Acute) Hyponatremia (Acute) Syncope (Acute) Acute kidney injury (Acute) This is a 75 years old female patient presented to the emergency room because of reported syncopal episode, fever, malaise, weakness and mild cough she was found to have acute COVID-19 infection, acute kidney injury with hyponatremia and she is being admitted for evaluation and treatment. #1 acute COVID-19: Chest x-ray without significant infiltrate. Currently, patient is on 2 L of oxygen, has been having spikes of fever, other vital signs are stable. Lactic acid was 2.1. No evidence of sepsis or severe sepsis. Urinalysis reviewed, doubt acute cystitis. Plan: Admit to [facility] floor, telemetry monitoring, isolation precautions, check D-dimer, LDH, pro time with INR, troponin, start IV Decadron, albuterol inhaler as needed, infectious disease consult, pulmonology consult, gentle IV fluids for hydration, repeat CBC and BMP tomorrow morning, PT OT evaluation and treatment. #2 acute kidney injury/hyponatremia: Likely due to poor oral intake in addition to HCTZ and losartan as well as Metformin. Hyponatremia is likely hypovolemic hyponatremia due to diuretics. Baseline kidney function is normal. Plan: Gentle IV fluids for hydration for the shortest period of time, avoid nephrotoxic drugs, input output chart, repeat BMP tomorrow morning. #3 syncopal episode: Could be due to vasovagal syncope due to dehydration and acute kidney injury. EKG revealed normal sinus rhythm without evidence of acute segment changes. CT scan brain showed no acute findings. Chest x-ray and CT scan cervical spine reviewed as above. Plan as above, gentle IV fluids, orthostatic vitals, monitor. #4 CAD status post stents and CABG: EKG without acute findings, no chest pain. Continue aspirin, Plavix, ezetimibe and metoprolol, hold losartan because of acute kidney injury. #5 type 2 diabetes mellitus: ADA diet, Accu-Cheks, insulin sliding scale, continue glargine insulin, hold Metformin. #6 history of ischemic cardiomyopathy: Without evidence of acute CHF, compensated. Continue aspirin, metoprolol, hold HCTZ for now as well as losartan as above. #7 hypertension: Blood pressure stable, continue metoprolol, hold losartan and HCTZ. #9 hyperlipidemia: Continue statins. #10 CODE STATUS: Full code, discussed with the patient. I explained to the patient different types of code and she elected to go with full code, intubation, chest compressions, full CPR and mechanical ventilation. #11 DVT prophylaxis: Subcu heparin. This note was generated with Digitilitiation software. It may contain incorrect words, spelling, and punctuation that were not noted in checking the note before signing. Inpatient E&M: 92955 Init Hosp L3
[2020-08-05 16:50] LABS: Reflex Lactate? Y
[2020-08-05 18:11] LABS: Lactic Acid 1.4 mmol/L (0.4-1.9)
[2020-08-05 18:14] LABS: LDH 212 U/L (84-246)
[2020-08-05] MEDS: 0.9% Normal Saline 1,000 ML 75 ML IV (18:17)
[2020-08-05 18:39] LABS: D-Dimer Quantitative (DVT/PE) 0.53 FEU/ug/m (0.27-0.49)
[2020-08-05 19:09] LABS: Procalcitonin 0.06 ng/mL (0.00-0.09)
[2020-08-05] MEDS: dexAMETHasone 10 MG/ML Vial 6 MG IV (19:37)
[2020-08-05] MEDS: Insulin Lispro 100 UNIT/ML INSULN.PEN SC (19:42)
[2020-08-05 19:51] LABS: Bedside Glucose 210 mg/dL (70-110)
[2020-08-05] MEDS: Heparin Injection (Vial) 5,000 UNIT/ML VIAL 5000 UNIT SC (21:37)
[2020-08-05] MEDS: Acetaminophen 325 MG Tablet 650 MG PO (21:37)
[2020-08-05] MEDS: Metoprolol Tartrate 25 MG Tablet PO (21:37)
[2020-08-05 22:16] LABS: Bedside Glucose 174 mg/dL (70-110)
[2020-08-06] VITALS (15 sets, daily range): BP systolic 120–165; BP diastolic 57–96; PULSE 62–83; RESP 18–20; TEMP 36.8–38.7; O2SAT 94–99
[2020-08-06] MEDS: Heparin Injection (Vial) 5,000 UNIT/ML VIAL 5000 UNIT SC ×3 (05:44→21:41)
[2020-08-06 06:03] LABS: Absolute Lymphocyte Count 0.55 X10^3/uL (0.83-4.51); Absolute Neutrophil Count 2.2 X10^3/uL (2.0-7.7); Hematocrit 44.3 % (37-47); Hemoglobin 14.1 g/dL (12.0-15.0); Lymphocyte # 0.55 X10^3/ul (4.0); Lymphocyte % 18.5 % (19-41); Mean Corp Hgb Conc 31.8 g/dL (32-36); Mean Corpuscular Hgb 29.2 pg (27.0-32.0); Mean Corpuscular Volume 91.7 fL (81-99); Mean Platelet Vol. 9.7 fl (6.2-12.0); Monocyte# 0.18 X10^3/uL; Monocyte% 6.1 % (0-10); NRBC Flagged by Analyzer 0 % (0-5); Neutrophil # 2.23 X10^3/uL (2.7-7.7); Neutrophil % 75.1 % (47-70); POSITIVE DIFFERENTIAL YES; Platelet Count 196 K/mm3 (150-450); RBC Distribution Width CV 13.3 % (11.6-14.6); RBC Distribution Width SD 45.4 fl (35.1-43.9); Red Blood Count 4.83 M/mm3 (4.2-5.4)
[2020-08-06 06:17] LABS: Differential Indicated SCAN CRITERIA MET
[2020-08-06 06:26] LABS: Anion Gap 11 (5-15); BUN 27 mg/dL (7-18); BUN/Creat Ratio 20.1 RATIO (10-20); Calcium,Total 7.7 mg/dL (8.5-10.1); Chloride 100 mmol/L (98-107); Creatinine, Serum 1.34 mg/dL (0.55-1.02); EST Glomerular Filtration Rate 41 mL/min (>60); Est Glom Filt Rate - Afr Amer 50 mL/min (>60); Estimated Creatinine Clearance 43.73 ml/min; Glucose 273 mg/dL (74-106); Potassium 4.3 mmol/L (3.5-5.1); Sodium Level 136 mmol/L (136-145)
[2020-08-06 06:54] LABS: Differential Comment SCANNED
[2020-08-06] MEDS: Insulin Lispro 100 UNIT/ML INSULN.PEN SC ×4 (08:19→21:41)
[2020-08-06 09:06] LABS: Bedside Glucose 293 mg/dL (70-110)
[2020-08-06] MEDS: Levothyroxine 88 MCG Tablet PO (10:29)
[2020-08-06] MEDS: Acetaminophen 325 MG Tablet 650 MG PO (10:29)
[2020-08-06] MEDS: Metoprolol Tartrate 25 MG Tablet PO ×2 (10:29→21:41)
[2020-08-06] MEDS: Clopidogrel Bisulfate 75 MG Tablet PO (10:29)
[2020-08-06] MEDS: Aspirin E.C. 81 MG Tablet PO (10:29)
[2020-08-06] MEDS: Ezetimibe 10 MG Tablet PO (10:29)
[2020-08-06] MEDS: Loratadine 10 MG Tablet PO (10:29)
[2020-08-06] MEDS: dexAMETHasone 10 MG/ML Vial 6 MG IV (10:30)
[2020-08-06] MEDS: 0.9% Saline Lock 10 ML Syringe IV ×2 (10:30→18:19)
[2020-08-06 11:20] LABS: Bedside Glucose 321 mg/dL (70-110)
[2020-08-06 13:24] LABS: Pathologist Review Reviewed
--- NOTE | 2020-08-06 13:58 | CASEMGMT ---
RN CM Assessment Note Introduced role of CM to patient to patient via phone. Demographics, PCP verified. Pt states she lives independently @ home with her S.O. No care needs per patient. Discussed possible need for home oxygen. The patient prefers [facility] if needed. Presentation: shortness Diagnosis: covid 19, kidney injury PCP: Dr. Sanchez Specialists: Dr. Tejeda Insurance: [facility] PPO Preferred Pharmacy: Prescription Benefit: [facility] [address] LNOK: Sig other Cassius Sarabia Living Arrangements: Lives independently. No assist needed with ADL's per pt. Tranportation: drives or family can drive DME: cane, doesn't use. If home oxygen is needed, prefers [facility] Patient DC Goals: Home DC Plan: Home on discharge. Recommend oxygen testing at rest and with ambulation prior to dc. CM available for discharge planning coordination. Contact CM for any concerns/needs that may arise. Liss IBARRAN RN ACM
--- NOTE | 2020-08-06 15:54 | PCM.HP.ID ---
Problem List (1) COVID-19 virus infection Status: Acute Reason for Consult: covid Consulted by: Dr. Morgan History of Present Illness: The patient is a 75 year old F presented with one week of fever, aches, cough, and dyspnea. also sick recently. No n/v/d. No sputum. No change in taste or smell. Had fever to 103, hypoxia in ED. Admitted on dex. Feeling slightly better today. Full ROS performed and neg except as noted above. - Medical History Past Medical History (Chronic Problems): Chronic Problems (Last Updated 08/05/20 @ 14:[address] Curt Morgan MD) Ischemic cardiomyopathy (Chronic) Type 2 diabetes mellitus (Chronic) Atherosclerosis of coronary artery of [place] heart without angina pectoris (Chronic) CABG x 1- ODEN to LAD 03/22/18 TRES-Mid LAD w/ Synergy 2.5 X 28 mm, TRES-Prox LAD w/ Synergy 3.0 X 16 mm 05/29/17 NSTEMI (non-ST elevated myocardial infarction) (Chronic 03/17/18) 05/2017, 03/17/2018 History of coronary artery stent placement (Chronic 05/29/17) TRES-Mid LAD w/ Synergy 2.5 X 28 mm, TRES-Prox LAD w/ Synergy 3.0 X 16 mm 05/29/17 H/O coronary artery bypass surgery (Chronic 03/22/18) CABG x 1- ODEN to LAD 03/22/18 Essential (primary) hypertension (Chronic) Hyperlipemia (Chronic) Allergies/Adverse Reactions: Allergies Sulfa (Sulfonamide Antibiotics) Allergy (Verified 08/05/20 11:24) PT UNSURE OF REACTION ticagrelor [From Brilinta] Allergy (Verified 04/01/20 13:59) Shortness of breath atorvastatin Adverse Reaction (Severe, Verified 04/01/20 13:59) Myalgias isosorbide Adverse Reaction (Severe, Verified 04/01/20 13:59) Severe headaches & nausea lovastatin Adverse Reaction (Severe, Verified 04/01/20 13:59) Severe Myalgias simvastatin Adverse Reaction (Severe, Verified 04/01/20 13:59) Myalgias lactose Adverse Reaction (Verified 04/01/20 13:59) Nausea nitroglycerin Adverse Reaction (Verified 08/05/20 11:24) LOW BP Eidjlll-Ycw-Wbk Reductase Inhibitor Adverse Reaction (Verified 04/01/20 13:59) Pain in joints CREATINE Allergy (Uncoded 04/01/20 13:59) Unknown Home Medications: Ambulatory Orders Medication Instructions Recorded Clopidogrel Bisulfate [Plavix] 75 mg PO DAILY 07/13/17 Metoprolol Tartrate [Lopressor 25 mg PO BID 03/18/18 (beta neo)] insulin glargine U-300 conc 300 18 unit SC QDAY ml 04/11/18 unit/mL (1.5 mL) subcutaneous pen metformin 500 mg tablet 500 mg PO BID 04/11/18 hydrochlorothiazide 25 mg tablet 25 mg PO DAILY #90 tab 09/19/18 docusate sodium 100 mg capsule 100 mg PO BID PRN cap 02/20/19 insulin aspart U-100 100 unit/mL See Rx Instructions SC QACHS ml 02/20/19 (3 mL) subcutaneous pen levothyroxine 75 mcg tablet 88 mcg PO DAILY tab 02/21/19 ezetimibe 10 mg tablet 10 mg PO DAILY 08/22/19 losartan 100 mg tablet 100 mg PO QDAY #90 tab 10/27/19 aspirin 81 mg tablet,delayed 81 mg PO DAILY tab 04/01/20 release cetirizine 10 mg capsule 10 mg PO DAILY cap 04/01/20 - Social History Tobacco Use: non-smoker Vital Signs Temp Pulse Resp BP Pulse Ox 98.3 F 83 18 141/96 H 96 08/06/20 15:43 08/06/20 15:43 08/06/20 15:43 08/06/20 15:43 08/06/20 15:43 Oxygen Flow Rate (L/min) 3 Oxygen Delivery Method Nasal Cannula Weight: 75.2 kg Body Mass Index (BMI) 32.9 Orthostatic Vital Signs Start: 08/06/20 05:27 Freq: q24h Status: Active Protocol: Activity Type Activity Date Activity User E-Sign Co-Sign Detail Recorded Client Recorded Date Recorded By Document 08/06/20 05:27 ALICE [id number] 08/06/20 05:35 EEA 08/06/20 05:27 Orthostatic Vitals Standing -Blood Pressure (90/60-120/80) 165/85 H -Extremity Use Right Arm Sitting -Blood Pressure (90/60-120/80) 145/84 H -Extremity Use Right Arm Lying -Blood Pressure (90/60-120/80) 129/72 H -Extremity Use Right Arm Microbiology Past 72 Hours 08/05/20 Unknown Urine Culture - Final Urine, Clean Catch Presumptive E. coli Mixed Gram Positive Organisms Laboratory Tests Past 24 Hrs 08/05/20 08/05/20 08/05/20 17:36 17:36 17:36 WBC RBC Hgb Hct MCV MCH MCHC RDW Std Deviation RDW Coeff of Abigail Plt Count MPV Immature Gran % (Auto) Neut % (Auto) Lymph % (Auto) [place] % (Auto) Eos % (Auto) Baso % (Auto) Absolute Neuts (auto) Absolute Lymphs (auto) Nucleated RBC % Differential Comment Diff Path Review PT INR D-Dimer Quant (PE/DVT) Sodium Potassium Chloride Carbon Dioxide Anion Gap BUN Creatinine Estim Creat Clear Calc Est GFR (MDRD) Af Amer Est GFR (MDRD) Non-Af BUN/Creatinine Ratio Glucose Lactic Acid 1.4 Calcium Lactate Dehydrogenase 212 Troponin I < 0.015 Procalcitonin 0.06 Blood Type 08/05/20 08/06/20 08/06/20 18:05 05:33 05:33 WBC 3.0 L RBC 4.83 Hgb 14.1 Hct 44.3 MCV 91.7 MCH 29.2 MCHC 31.8 L RDW Std Deviation 45.4 H RDW Coeff of Abigail 13.3 Plt Count 196 MPV 9.7 Immature Gran % (Auto) 0.300 Neut % (Auto) 75.1 H Lymph % (Auto) 18.5 L [place] % (Auto) 6.1 Eos % (Auto) 0.0 Baso % (Auto) 0.0 Absolute Neuts (auto) 2.2 Absolute Lymphs (auto) 0.55 L Nucleated RBC % 0 Differential Comment SCANNED Diff Path Review Reviewed PT 13.0 INR 1.0 D-Dimer Quant (PE/DVT) 0.53 H* Sodium 136 Potassium 4.3 Chloride 100 Carbon Dioxide 25.0 Anion Gap 11 BUN 27 H Creatinine 1.34 H Estim Creat Clear Calc 43.73 Est GFR (MDRD) Af Amer 50 L Est GFR (MDRD) Non-Af 41 L BUN/Creatinine Ratio 20.1 H Glucose 273 H Lactic Acid Calcium 7.7 L Lactate Dehydrogenase Troponin I Procalcitonin Blood Type 08/06/20 14:35 WBC RBC Hgb Hct MCV MCH MCHC RDW Std Deviation RDW Coeff of Abigail Plt Count MPV Immature Gran % (Auto) Neut % (Auto) Lymph % (Auto) [place] % (Auto) Eos % (Auto) Baso % (Auto) Absolute Neuts (auto) Absolute Lymphs (auto) Nucleated RBC % Differential Comment Diff Path Review PT INR D-Dimer Quant (PE/DVT) Sodium Potassium Chloride Carbon Dioxide Anion Gap BUN Creatinine Estim Creat Clear Calc Est GFR (MDRD) Af Amer Est GFR (MDRD) Non-Af BUN/Creatinine Ratio Glucose Lactic Acid Calcium Lactate Dehydrogenase Troponin I Procalcitonin Blood Type Pending - Other Studies Radiology: [] reviewed Other Studies: [] Route of nutrition/ use of supplements: [] Nutritional Intake: [] IV Site: [] Dejesus Catheter: [] - Physical Exam General: Alert, Oriented x3, Cooperative HEENT: Atraumatic, PERRLA, EOMI Neck: Supple, No Nodes Lungs: Diminished Cardiovascular: Regular rate, Regular Rhythm Abdomen: Soft, Non Tender, Non-Distended Extremities: No edema Skin: No rashes IV Site: Peripheral, without redness Musculoskeletal: No Tenderness to Palpation of Joints or Extremities Neurological: Cranial nerves II-XII grossly intact - Assessment/Plan Antibiotics: [] Assessment/Plan: [] Active and Suspected Problems (Last Updated 08/05/20 @ 14:[address] Curt Morgan MD) Fever (Acute) Lactic acidosis (Acute) UTI (urinary tract infection) (Acute) Weakness (Acute) Contusion of right shoulder (Acute) COVID-19 virus infection (Acute) Hyponatremia (Acute) Syncope (Acute) Acute kidney injury (Acute) Covid with fever and hypoxia - on hep prophylaxis. Change dex to po. Reviewed EUA and risks/benefits of plasma, will start. Will start remdesivir. Will follow, thank you
--- NOTE | 2020-08-06 15:55 | PN_ITS ---
Patient Problems: Active and Suspected Problems (Last Updated 08/05/20 @ 14:[address] Curt Morgan MD) Fever (Acute) Lactic acidosis (Acute) UTI (urinary tract infection) (Acute) Weakness (Acute) Contusion of right shoulder (Acute) COVID-19 virus infection (Acute) Hyponatremia (Acute) Syncope (Acute) Acute kidney injury (Acute) Reason for Visit: COVID Subjective: Feels fine. Has been ill for the past week and had not been eating or drinking during this time. Had several syncopal episodes prior to the event that brought her in. Vitals/I&O's: Vital Signs Temp Pulse Resp BP Pulse Ox 36.8 C 83 18 141/96 H 96 08/06/20 15:43 08/06/20 15:43 08/06/20 15:43 08/06/20 15:43 08/06/20 15:43 Oxygen Flow Rate (L/min) 3 Oxygen Delivery Method Nasal Cannula Weight: 75.2 kg Body Mass Index (BMI) 32.9 Orthostatic Vital Signs Start: 08/06/20 05:27 Freq: q24h Status: Active Protocol: Activity Type Activity Date Activity User E-Sign Co-Sign Detail Recorded Client Recorded Date Recorded By Document 08/06/20 05:27 EEA [id number] 08/06/20 05:35 EEA 08/06/20 05:27 Orthostatic Vitals Standing -Blood Pressure (90/60-120/80) 165/85 H -Extremity Use Right Arm Sitting -Blood Pressure (90/60-120/80) 145/84 H -Extremity Use Right Arm Lying -Blood Pressure (90/60-120/80) 129/72 H -Extremity Use Right Arm Intake and Output for Last 24 Hours 08/04/20 08/05/20 08/06/20 23:59 23:59 23:59 Intake Total 1250 / 1250 1300 / 1300 Balance 1250 / 1250 1300 / 1300 General: Alert, No apparent distress HEENT: Atraumatic, Normocephalic Neck: No Nodes, Thyroid Normal Size and Texture Lungs: Clear to auscultation, Normal air movement, No rhonchi, No wheeze, No rales Cardiovascular: Regular rate, Regular Rhythm, Normal S1, Normal S2, No murmurs Abdomen: Bowel Sounds Present, Soft, Non Tender, Non-Distended Extremities: No edema, No Calf Tenderness Microbiology Past 72 Hours 08/05/20 Unknown Urine, Clean Catch Urine Culture - Final Presumptive E. coli Mixed Gram Positive Organisms Laboratory Results 08/05/20 17:36: Lactic Acid 1.4 08/05/20 17:36: Lactate Dehydrogenase 212, Troponin I < 0.015 08/05/20 17:36: Procalcitonin 0.06 08/05/20 18:05: PT 13.0, INR 1.0, D-Dimer Quant (PE/DVT) 0.53 H* 08/05/20 19:36: POC Glucose 210 H 08/05/20 21:32: POC Glucose 174 H 08/06/20 05:33: WBC 3.0 L, RBC 4.83, Hgb 14.1, Hct 44.3, MCV 91.7, MCH 29.2, MCHC 31.8 L, RDW Std Deviation 45.4 H, RDW Coeff of Abigail 13.3, Plt Count 196, MPV 9.7, Immature Gran % (Auto) 0.300, Neut % (Auto) 75.1 H, Lymph % (Auto) 18.5 L, [place] % (Auto) 6.1, Eos % (Auto) 0.0, Baso % (Auto) 0.0, Absolute Neuts (auto) 2.2, Absolute Lymphs (auto) 0.55 L, Nucleated RBC % 0, Differential Comment SCANNED, Diff Path Review Reviewed 08/06/20 05:33: Sodium 136, Potassium 4.3, Chloride 100, Carbon Dioxide 25.0, Anion Gap 11, BUN 27 H, Creatinine 1.34 H, Estim Creat Clear Calc 43.73, Est GFR (MDRD) Af Amer 50 L, Est GFR (MDRD) Non-Af 41 L, BUN/Creatinine Ratio 20.1 H, Glucose 273 H, Calcium 7.7 L 08/06/20 08:15: POC Glucose 293 H 08/06/20 10:23: POC Glucose 321 H 08/06/20 14:35: Blood Type Pending Current Medications Acetaminophen (Acetaminophen 325 Mg Tablet) 650 mg PO Q6H PRN PRN PRN Reason: Pain Score 1-10/Temp > 100.7 F Last Admin: 08/06/20 10:29 Dose: 650 mg Documented by: Albuterol Sulfate (Albuterol Sulfate 8 Gm Inhaler (60 Puffs)) 2 puff INHALATION Q4H PRN PRN PRN Reason: Shortness of breath, wheezing Aspirin (Aspirin E.C. 81 Mg Tablet) 81 mg PO DAILY [facility] Last Admin: 08/06/20 10:29 Dose: 81 mg Documented by: Clopidogrel Bisulfate (Clopidogrel Bisulfate 75 Mg Tablet) 75 mg PO DAILY [facility] Last Admin: 08/06/20 10:29 Dose: 75 mg Documented by: Dexamethasone (Dexamethasone 4 Mg Tablet) 6 mg PO DAILY@0800 [facility] Stop: 08/14/20 08:01 Docusate Sodium (Docusate Sodium 100 Mg Capsule) 100 mg PO BID PRN PRN Reason: CONSTIPATION Ezetimibe (Ezetimibe 10 Mg Tablet) 10 mg PO DAILY [facility] Last Admin: 08/06/20 10:29 Dose: 10 mg Documented by: Heparin Sodium (Porcine) (Heparin Injection (Vial) 5,000 Unit/Ml Vial) 5,000 unit SC Q8 [facility] Last Admin: 08/06/20 12:34 Dose: 5,000 unit Documented by: Sodium Chloride () 250 mls @ 15 mls/hr IV .[id number] PRN PRN Reason: Saline Flush Sodium Chloride () 250 mls @ 15 mls/hr IV .[id number] PRN PRN Reason: Additional IVPB Infusion Remdesivir 100 mg/ Sodium (Chloride) 250 mls @ 125 mls/hr IV DAILY [facility]; Protocol Stop: 08/10/20 11:59 Remdesivir 200 mg/ Sodium (Chloride) 250 mls @ 125 mls/hr IV X1 ONE; Protocol Stop: 08/06/20 17:52 Insulin Glargine (Insulin Glargine 100 Units/Ml Pen) 18 units SC DAILY [facility] Last Admin: 08/06/20 10:29 Dose: 18 u Documented by: Insulin Human Lispro (Insulin Lispro 100 Unit/Ml Insuln.Pen) 0 unit SC ACHS [facility]; Protocol Last Admin: 08/06/20 10:30 Dose: 6 u Documented by: Levothyroxine Sodium (Levothyroxine 88 Mcg Tablet) 88 mcg PO DAILY [facility] Last Admin: 08/06/20 10:29 Dose: 88 mcg Documented by: Loratadine (Loratadine 10 Mg Tablet) 10 mg PO DAILY [facility] Last Admin: 08/06/20 10:29 Dose: 10 mg Documented by: Metoprolol Tartrate (Metoprolol Tartrate 25 Mg Tablet) 25 mg PO BID [facility] Last Admin: 08/06/20 10:29 Dose: 25 mg Documented by: Ondansetron HCl (Ondansetron 4 Mg/2 Ml Vial) 4 mg IV Q8H PRN PRN PRN Reason: NAUSEA/VOMITING Senna/Docusate Sodium (Senna/Docusate Sodium 1 Tablet) 2 tablet PO BID PRN PRN PRN Reason: Constipation Sodium Chloride (0.9% Saline Lock 10 Ml Syringe) 10 - 40 ml IV UD PRN PRN Reason: SALINE FLUSH Last Admin: 08/06/20 10:30 Dose: 10 ml Documented by: Zolpidem Tartrate (Zolpidem Tartrate 5 Mg Tablet) 5 mg PO QHS PRN PRN PRN Reason: INSOMNIA STROKE Vital Signs/Narrative: Vital Signs Temp Pulse Resp BP Pulse Ox 08/06/20 15:43 36.8 C 83 18 141/96 H 96 08/06/20 12:44 94 08/06/20 12:32 37.7 C H Medical Necessity - Tobacco Use Smoking Status: Never smoker Assessment/Plan All Active Problems (Last Updated 08/05/20 @ 14:[address] Curt Morgan MD) Fever (Acute) Lactic acidosis (Acute) UTI (urinary tract infection) (Acute) Weakness (Acute) Contusion of right shoulder (Acute) COVID-19 virus infection (Acute) Hyponatremia (Acute) Syncope (Acute) Acute kidney injury (Acute) 1. COVID-19 acute pneumonia: on IV dexamethasone. Appears stable from a respiratory standpoint. Wean oxygen as tolerated 2. Syncope: vasovagal. orthostats negative. no additional work up at this time. Likely attributable to decreased oral intake the past week since she has been ill. 3. DM2, uncontrolled. Exacerbated by steroids. Increase glargine. 4. CKD 3 v BLADE: monitor. creatinine improved. Losartan and HCTZ held 5. VTE prophylaxis: SQ heparin. Inpatient E&M: 97006 Subs Hosp L2
[2020-08-06 16:10] LABS: Bedside Glucose 418 mg/dL (70-110)
--- NOTE | 2020-08-06 16:29 | PCM.CONS.PUL ---
Problem List (1) UTI (urinary tract infection) Status: Acute Qualifiers: Urinary tract infection type: acute cystitis Hematuria presence: without hematuria Qualified Code(s): N30.00 - Acute cystitis without hematuria (2) Contusion of right shoulder Status: Acute (3) COVID-19 virus infection Status: Acute (4) Hyponatremia Status: Acute (5) Acute kidney injury Status: Acute (6) Ischemic cardiomyopathy Status: Chronic (7) Type 2 diabetes mellitus Status: Chronic (8) Atherosclerosis of coronary artery of [place] heart without angina pectoris Status: Chronic Qualifiers: Coronary Disease-Associated Artery/Lesion type: [place] artery Qualified Code(s): I25.10 - Atherosclerotic heart disease of [place] coronary artery without angina pectoris Comment: CABG x 1- ODEN to LAD 03/22/18 TRES-Mid LAD w/ Synergy 2.5 X 28 mm, TRES-Prox LAD w/ Synergy 3.0 X 16 mm 05/29/17 (9) NSTEMI (non-ST elevated myocardial infarction) Status: Chronic Comment: 05/2017, 03/17/2018 (10) History of coronary artery stent placement Status: Chronic Comment: TRES-Mid LAD w/ Synergy 2.5 X 28 mm, TRES-Prox LAD w/ Synergy 3.0 X 16 mm 05/29/17 (11) Essential (primary) hypertension Status: Chronic (12) Hyperlipemia Status: Chronic Qualifiers: Hyperlipidemia type: pure hypercholesterolemia Qualified Code(s): E78.00 - Pure hypercholesterolemia, unspecified; E78.0 - Pure hypercholesterolemia Reason for Consult Date of Consultation: 08/06/20 Reason for Consultation: Hypoxia History of Present Illness: The patient is a 75 year old F with past medical history listed below, who presented [facility] on 08/05/2020 with a 5-day history of fever, chills and myalgias. Patient had reported an intermittent headache and dizziness along with a dry cough. Patient did have a loose bowel movement on the day of presentation, but denied any loss of taste or smell. Patient reportedly did have a syncopal event on the commode. Patient does have a history of coronary artery disease and follows with Dr. Tejeda. Patient did not report any chest pain prior to the syncopal event. No neck or back pain was reported prior to presentation. Patient was reportedly helped to the living room by her significant other and EMS was contacted. In the ER, patient was noted to have a temperature of 99.9 ?F. No meningismus was reported. Patient had a chest x-ray showing some mild scarring at the bases, shoulder x-ray showing no fracture and a brain CT that showed chronic involution. Patient did not have a lytic lesion noted. Patient did not had any leukocytosis or anemia. Coagulation studies were within normal limits. Patient's renal function was decreased at 1.76 compared to her baseline of 1.03, but liver functions were within normal limits. Patient did have some mild hyponatremia. Lactate was slightly elevated at 2.1 and urinalysis was suggestive of a possible infection. Patient was initiated on Rocephin and admitted to the cohort floor after Covid testing became positive Since being on the floor, patient overall feels subjectively improved. Patient has had multiple syncopal events in the past that have brought her to the hospital. Patient is currently requiring 3 L nasal cannula to maintain saturations. Patient did spike a fever of 39.4 ?C overnight without significant hemodynamic instability. Patient had orthostatic blood pressures that were within normal limits. Patient denies any baseline respiratory complaints. Patient has not required an inhaler previously. Patient does not believe that she is required supplemental oxygen. Review of systems otherwise negative from a constitutional, HEENT, respiratory, cardiovascular, GI, genitourinary, musculoskeletal, skin, neurologic, psychiatric and hematologic system unless stated above. Past Medical History Past Medical History (Chronic Problems): Chronic Problems (Last Updated 08/05/20 @ 14:[address] Curt Morgan MD) Ischemic cardiomyopathy (Chronic) Type 2 diabetes mellitus (Chronic) Atherosclerosis of coronary artery of [place] heart without angina pectoris (Chronic) CABG x 1- ODEN to LAD 03/22/18 TRES-Mid LAD w/ Synergy 2.5 X 28 mm, TRES-Prox LAD w/ Synergy 3.0 X 16 mm 05/29/17 NSTEMI (non-ST elevated myocardial infarction) (Chronic 03/17/18) 05/2017, 03/17/2018 History of coronary artery stent placement (Chronic 05/29/17) TRES-Mid LAD w/ Synergy 2.5 X 28 mm, TRES-Prox LAD w/ Synergy 3.0 X 16 mm 05/29/17 H/O coronary artery bypass surgery (Chronic 03/22/18) CABG x 1- ODEN to LAD 03/22/18 Essential (primary) hypertension (Chronic) Hyperlipemia (Chronic) Medical History: Medical History (Last Updated 08/05/20 @ 14:[address] Curt Morgan MD) Atherosclerosis of coronary artery of [place] heart without angina pectoris (Chronic) I25.10 CABG x 1- ODEN to LAD 03/22/18 TRES-Mid LAD w/ Synergy 2.5 X 28 mm, TRES-Prox LAD w/ Synergy 3.0 X 16 mm 05/29/17 NSTEMI (non-ST elevated myocardial infarction) (Chronic) Onset Date: 03/17/18 I21.4 05/2017, 03/17/2018 Essential (primary) hypertension (Chronic) I10 Hyperlipemia (Chronic) E78.5 Central sleep apnea G47.31 Hypothyroidism E03.9 Type 2 diabetes mellitus E11.9 Ischemic cardiomyopathy I25.5 Allergies Sulfa (Sulfonamide Antibiotics) Allergy (Verified 08/05/20 11:24) PT UNSURE OF REACTION ticagrelor [From Brilinta] Allergy (Verified 04/01/20 13:59) Shortness of breath atorvastatin Adverse Reaction (Severe, Verified 04/01/20 13:59) Myalgias isosorbide Adverse Reaction (Severe, Verified 04/01/20 13:59) Severe headaches & nausea lovastatin Adverse Reaction (Severe, Verified 04/01/20 13:59) Severe Myalgias simvastatin Adverse Reaction (Severe, Verified 04/01/20 13:59) Myalgias lactose Adverse Reaction (Verified 04/01/20 13:59) Nausea nitroglycerin Adverse Reaction (Verified 08/05/20 11:24) LOW BP Rrjukwq-Drm-Rht Reductase Inhibitor Adverse Reaction (Verified 04/01/20 13:59) Pain in joints CREATINE Allergy (Uncoded 04/01/20 13:59) Unknown Home Medications: Ambulatory Orders Medication Instructions Recorded Clopidogrel Bisulfate [Plavix] 75 mg PO DAILY 07/13/17 Metoprolol Tartrate [Lopressor 25 mg PO BID 03/18/18 (beta neo)] insulin glargine U-300 conc 300 18 unit SC QDAY ml 04/11/18 unit/mL (1.5 mL) subcutaneous pen metformin 500 mg tablet 500 mg PO BID 04/11/18 hydrochlorothiazide 25 mg tablet 25 mg PO DAILY #90 tab 09/19/18 docusate sodium 100 mg capsule 100 mg PO BID PRN cap 02/20/19 insulin aspart U-100 100 unit/mL See Rx Instructions SC QACHS ml 02/20/19 (3 mL) subcutaneous pen levothyroxine 75 mcg tablet 88 mcg PO DAILY tab 02/21/19 ezetimibe 10 mg tablet 10 mg PO DAILY 08/22/19 losartan 100 mg tablet 100 mg PO QDAY #90 tab 10/27/19 aspirin 81 mg tablet,delayed 81 mg PO DAILY tab 04/01/20 release cetirizine 10 mg capsule 10 mg PO DAILY cap 04/01/20 Surgical History: Surgical History (Last Reviewed 08/05/20 @ 14:[address] Curt Morgan MD) History of coronary artery stent placement (Chronic) Onset Date: 05/29/17 Z95.5 TRES-Mid LAD w/ Synergy 2.5 X 28 mm, TRES-Prox LAD w/ Synergy 3.0 X 16 mm 05/29/17 H/O coronary artery bypass surgery (Chronic) Onset Date: 03/22/18 Z95.1 CABG x 1- ODEN to LAD 03/22/18 H/O ovarian cystectomy Z98.890, Z87.42 History of bladder suspension procedure Z98.890, Z87.448 History of hysterectomy Z90.710 History of repair of rotator cuff Z98.890 History of tonsillectomy Z90.89 Surgical History: rotator cuff repair, tonsillectomy, - Psychiatric History: Depression [employer] History: ovarian cysts Lives: Spouse/ Significant Other Smoking Status: Never smoker Alcohol: None Drugs: None - *Family History Maternal Family History: Family History (Last Reviewed 08/05/20 @ 14:[address] Curt Morgan MD) Mother CAD (coronary artery disease) History Items: Heart Disease Paternal Family History: Family History (Last Reviewed 08/05/20 @ 14:[address] Curt Morgan MD) Mother CAD (coronary artery disease) History Items: Hypertension Sibling Family History: Family History (Last Reviewed 08/05/20 @ 14:[address] Curt Morgan MD) Mother CAD (coronary artery disease) History Items: Heart Disease - [place] Review of Systems Comment: See HPI Patient Problems: Active and Suspected Problems (Last Updated 08/05/20 @ 14:[address] Curt Morgan MD) Lactic acidosis (Acute) UTI (urinary tract infection) (Acute) Weakness (Acute) Contusion of right shoulder (Acute) COVID-19 virus infection (Acute) Hyponatremia (Acute) Syncope (Acute) Acute kidney injury (Acute) Objective: All imaging was personally reviewed. Chest x-ray was relatively unremarkable. Patient has not had a pulmonary function test previously, but did have a stress test completed in 2019 showing an EF of 75% and no inducible ischemia. - Physical Exam Vitals/I&O's: Vital Signs Temp Pulse Resp BP Pulse Ox 36.8 C 83 18 141/96 H 96 08/06/20 15:43 08/06/20 15:43 08/06/20 15:43 08/06/20 15:43 08/06/20 15:43 Oxygen Flow Rate (L/min) 2 Oxygen Delivery Method Nasal Cannula Weight: 75.2 kg Body Mass Index (BMI) 32.9 Orthostatic Vital Signs Start: 08/06/20 05:27 Freq: q24h Status: Active Protocol: Activity Type Activity Date Activity User E-Sign Co-Sign Detail Recorded Client Recorded Date Recorded By Document 08/06/20 05:27 EEA [id number] 08/06/20 05:35 EEA 08/06/20 05:27 Orthostatic Vitals Standing -Blood Pressure (90/60-120/80) 165/85 H -Extremity Use Right Arm Sitting -Blood Pressure (90/60-120/80) 145/84 H -Extremity Use Right Arm Lying -Blood Pressure (90/60-120/80) 129/72 H -Extremity Use Right Arm Intake and Output for Last 24 Hours 08/04/20 08/05/20 08/06/20 23:59 23:59 23:59 Intake Total 1250 / 1250 1300 / 1300 Balance 1250 / 1250 1300 / 1300 General: Alert, Oriented x3, Cooperative, No apparent distress, - - Obese. Speaking in full sentences. HEENT: Atraumatic, PERRLA, EOMI, Normocephalic, - - No scleral icterus or injection noted Oral: Moist Mucosa, No Gingival or Mucosal Lesions/ Ulcerations Neck: Supple, No JVD, No Nodes, Trachea Midline Lungs: No rhonchi, No wheeze, No rales, Diminished, - - Symmetric expansion. No dullness to percussion. Cardiovascular: Regular rate, Regular Rhythm, Normal S1, Normal S2, No murmurs, No rub noted, No Gallop Abdomen: Bowel Sounds Present, Soft, Non Tender, Non-Distended, Obese Extremities: No clubbing, No cyanosis, No edema Skin: No rashes, No breakdown Musculoskeletal: No Tenderness to Palpation of Joints or Extremities Lymphatic: No Cervical, Supraclavicular, or Inguinal Adenopathy Neurological: Cranial nerves II-XII grossly intact, Neuro grossly intact, Motor Exam 5/5 strength throughout Psych/Mental Status: Alert and oriented to time, place, person, mood and affect Microbiology Past 72 Hours 08/05/20 Unknown Urine, Clean Catch Urine Culture - Final Presumptive E. coli Mixed Gram Positive Organisms Laboratory Results 08/05/20 17:36: Lactic Acid 1.4 08/05/20 17:36: Lactate Dehydrogenase 212, Troponin I < 0.015 08/05/20 17:36: Procalcitonin 0.06 08/05/20 18:05: PT 13.0, INR 1.0, D-Dimer Quant (PE/DVT) 0.53 H* 08/05/20 19:36: POC Glucose 210 H 08/05/20 21:32: POC Glucose 174 H 08/06/20 05:33: WBC 3.0 L, RBC 4.83, Hgb 14.1, Hct 44.3, MCV 91.7, MCH 29.2, MCHC 31.8 L, RDW Std Deviation 45.4 H, RDW Coeff of Abigail 13.3, Plt Count 196, MPV 9.7, Immature Gran % (Auto) 0.300, Neut % (Auto) 75.1 H, Lymph % (Auto) 18.5 L, [place] % (Auto) 6.1, Eos % (Auto) 0.0, Baso % (Auto) 0.0, Absolute Neuts (auto) 2.2, Absolute Lymphs (auto) 0.55 L, Nucleated RBC % 0, Differential Comment SCANNED, Diff Path Review Reviewed 08/06/20 05:33: Sodium 136, Potassium 4.3, Chloride 100, Carbon Dioxide 25.0, Anion Gap 11, BUN 27 H, Creatinine 1.34 H, Estim Creat Clear Calc 43.73, Est GFR (MDRD) Af Amer 50 L, Est GFR (MDRD) Non-Af 41 L, BUN/Creatinine Ratio 20.1 H, Glucose 273 H, Calcium 7.7 L 08/06/20 08:15: POC Glucose 293 H 08/06/20 10:23: POC Glucose 321 H 08/06/20 14:35: Blood Type A POSITIVE 08/06/20 15:56: POC Glucose 418 H Current Medications Acetaminophen (Acetaminophen 325 Mg Tablet) 650 mg PO Q6H PRN PRN PRN Reason: Pain Score 1-10/Temp > 100.7 F Last Admin: 08/06/20 10:29 Dose: 650 mg Documented by: Albuterol Sulfate (Albuterol Sulfate 8 Gm Inhaler (60 Puffs)) 2 puff INHALATION Q4H PRN PRN PRN Reason: Shortness of breath, wheezing Aspirin (Aspirin E.C. 81 Mg Tablet) 81 mg PO DAILY [facility] Last Admin: 08/06/20 10:29 Dose: 81 mg Documented by: Clopidogrel Bisulfate (Clopidogrel Bisulfate 75 Mg Tablet) 75 mg PO DAILY [facility] Last Admin: 08/06/20 10:29 Dose: 75 mg Documented by: Dexamethasone (Dexamethasone 4 Mg Tablet) 6 mg PO DAILY@0800 [facility] Stop: 08/14/20 08:01 Docusate Sodium (Docusate Sodium 100 Mg Capsule) 100 mg PO BID PRN PRN Reason: CONSTIPATION Ezetimibe (Ezetimibe 10 Mg Tablet) 10 mg PO DAILY [facility] Last Admin: 08/06/20 10:29 Dose: 10 mg Documented by: Heparin Sodium (Porcine) (Heparin Injection (Vial) 5,000 Unit/Ml Vial) 5,000 unit SC Q8 [facility] Last Admin: 08/06/20 12:34 Dose: 5,000 unit Documented by: Sodium Chloride () 250 mls @ 15 mls/hr IV .[id number] PRN PRN Reason: Saline Flush Sodium Chloride () 250 mls @ 15 mls/hr IV .[id number] PRN PRN Reason: Additional IVPB Infusion Remdesivir 100 mg/ Sodium (Chloride) 250 mls @ 125 mls/hr IV DAILY [facility]; Protocol Stop: 08/10/20 11:59 Remdesivir 200 mg/ Sodium (Chloride) 250 mls @ 125 mls/hr IV X1 ONE; Protocol Stop: 08/06/20 18:59 Insulin Glargine (Insulin Glargine 100 Units/Ml Pen) 30 units SC DAILY [facility] Insulin Human Lispro (Insulin Lispro 100 Unit/Ml Insuln.Pen) 0 unit SC ACHS [facility]; Protocol Last Admin: 08/06/20 15:59 Dose: 11 u Documented by: Levothyroxine Sodium (Levothyroxine 88 Mcg Tablet) 88 mcg PO DAILY [facility] Last Admin: 08/06/20 10:29 Dose: 88 mcg Documented by: Loratadine (Loratadine 10 Mg Tablet) 10 mg PO DAILY [facility] Last Admin: 08/06/20 10:29 Dose: 10 mg Documented by: Metoprolol Tartrate (Metoprolol Tartrate 25 Mg Tablet) 25 mg PO BID [facility] Last Admin: 08/06/20 10:29 Dose: 25 mg Documented by: Ondansetron HCl (Ondansetron 4 Mg/2 Ml Vial) 4 mg IV Q8H PRN PRN PRN Reason: NAUSEA/VOMITING Senna/Docusate Sodium (Senna/Docusate Sodium 1 Tablet) 2 tablet PO BID PRN PRN PRN Reason: Constipation Sodium Chloride (0.9% Saline Lock 10 Ml Syringe) 10 - 40 ml IV UD PRN PRN Reason: SALINE FLUSH Last Admin: 08/06/20 10:30 Dose: 10 ml Documented by: Zolpidem Tartrate (Zolpidem Tartrate 5 Mg Tablet) 5 mg PO QHS PRN PRN PRN Reason: INSOMNIA Assessment/Plan All Active Problems (Last Updated 08/05/20 @ 14:[address] Curt Morgan MD) Lactic acidosis (Acute) UTI (urinary tract infection) (Acute) Weakness (Acute) Contusion of right shoulder (Acute) COVID-19 virus infection (Acute) Hyponatremia (Acute) Syncope (Acute) Acute kidney injury (Acute) RECOMMENDATIONS: 1. Convalescent serum and remdesivir per infectious disease 2. Will need insulin coverage if continuation of Decadron 3. May need supplemental oxygen on discharge 4. If discharged, patient should have pulse oximeter and instructed on reasons for return 5. Antibiotics per infectious disease for possible UTI IMPRESSIONS: 1. Acute hypoxic respiratory insufficiency secondary to COVID-19 pneumonia Patient currently receiving remdesivir and Decadron. We will continue to monitor, but patient appears to be stable from a respiratory standpoint at this time. Given 5 days of symptoms, progression could be seen. If patient is discharged, but pulse oximeter along with instructions for return should be reviewed. Doubt patient's hypoxia was the etiology for syncopal event. 2. Syncope Unclear etiology. But more than likely patient had a vasovagal event. Orthostatics are not suggestive of dehydration or volume depletion. Patient has had some decreased oral intake per her report. Continue to monitor with telemetry 3. Diabetes mellitus type 2, uncontrolled/CKD stage III versus acute kidney injury/hypertension/advanced age/obesity Complicates care, management, recovery and prognosis. Losartan and hydrochlorothiazide have been held. Continue to monitor renal function. No indication for renal replacement therapy at this time. Do anticipate significant worsening of glucose control given Decadron therapy. Inpatient E&M: 99723 Init Hosp L2
[2020-08-06 22:10] LABS: Bedside Glucose 338 mg/dL (70-110)
[2020-08-07] VITALS (15 sets, daily range): BP systolic 115–134; BP diastolic 59–86; PULSE 61–79; RESP 12–24; TEMP 36.5–39.5; O2SAT 90–99
--- NOTE | 2020-08-07 01:07 | NURSING ---
Pt temp 103.0 orally at this time. Will plan to give Tylenol after convalescent plasma transfusion. Not giving Tylenol at this time because don't want to mask potential temperature increase d/t transfusion reaction.
[2020-08-07] MEDS: 0.9% Saline Lock 10 ML Syringe IV ×2 (01:10→03:35)
[2020-08-07] MEDS: Acetaminophen 325 MG Tablet 650 MG PO ×2 (03:29→09:23)
[2020-08-07] MEDS: Heparin Injection (Vial) 5,000 UNIT/ML VIAL 5000 UNIT SC (06:42)
[2020-08-07] MEDS: Insulin Lispro 100 UNIT/ML INSULN.PEN SC ×2 (06:42→11:28)
[2020-08-07 07:51] LABS: Bedside Glucose 172 mg/dL (70-110)
[2020-08-07 08:07] LABS: Hematocrit 41.2 % (37-47); Hemoglobin 13.5 g/dL (12.0-15.0); Mean Corp Hgb Conc 32.8 g/dL (32-36); Mean Corpuscular Hgb 30.1 pg (27.0-32.0); Mean Corpuscular Volume 91.8 fL (81-99); Platelet Count 197 K/mm3 (150-450); RBC Distribution Width CV 13.4 % (11.6-14.6); RBC Distribution Width SD 45.4 fl (35.1-43.9); Red Blood Count 4.49 M/mm3 (4.2-5.4); White Blood Count 6.4 K/mm3 (4.4-11.0)
[2020-08-07 08:27] LABS: ALB/GLOB Ratio 0.8 RATIO (0.9-2.4); AST(SGOT) 32 U/L (15-37); Alanine Aminotransfer ALT/SGPT 29 U/L (13-56); Albumin, Serum 2.8 g/dL (3.2-5.0); Alkaline Phosphatase 47 U/L (45-117); Anion Gap 5 (5-15); BUN 28 mg/dL (7-18); BUN/Creat Ratio 20.3 RATIO (10-20); Calcium,Total 8.4 mg/dL (8.5-10.1); Chloride 105 mmol/L (98-107); Creatinine, Serum 1.38 mg/dL (0.55-1.02); EST Glomerular Filtration Rate 40 mL/min (>60); Est Glom Filt Rate - Afr Amer 48 mL/min (>60); Estimated Creatinine Clearance 42.46 ml/min; Globulin 3.7 g/dL (2.2-4.2); Glucose 162 mg/dL (74-106); Potassium 3.8 mmol/L (3.5-5.1); Protein, Total 6.5 g/dL (6.4-8.2); Sodium Level 137 mmol/L (136-145)
[2020-08-07] MEDS: dexAMETHasone 4 MG Tablet 6 MG PO (09:22)
[2020-08-07] MEDS: Levothyroxine 88 MCG Tablet PO (09:23)
[2020-08-07] MEDS: Loratadine 10 MG Tablet PO (09:23)
[2020-08-07] MEDS: Aspirin E.C. 81 MG Tablet PO (09:23)
[2020-08-07] MEDS: Ezetimibe 10 MG Tablet PO (09:23)
[2020-08-07] MEDS: Clopidogrel Bisulfate 75 MG Tablet PO (09:23)
[2020-08-07] MEDS: Metoprolol Tartrate 25 MG Tablet PO (09:23)
--- NOTE | 2020-08-07 11:06 | DCINST_ITS ---
- Discharge Diagnoses Current Active Problems: Current Active and Chronic Problems (Last Updated 08/05/20 @ 14:[address] Curt Morgan MD) Lactic acidosis (Acute) UTI (urinary tract infection) (Acute) Weakness (Acute) Contusion of right shoulder (Acute) COVID-19 virus infection (Acute) Hyponatremia (Acute) Syncope (Acute) Acute kidney injury (Acute) Ischemic cardiomyopathy (Chronic) Type 2 diabetes mellitus (Chronic) Atherosclerosis of coronary artery of [place] heart without angina pectoris (Chronic) CABG x 1- ODEN to LAD 03/22/18 TRES-Mid LAD w/ Synergy 2.5 X 28 mm, TRES-Prox LAD w/ Synergy 3.0 X 16 mm 05/29/17 NSTEMI (non-ST elevated myocardial infarction) (Chronic 03/17/18) 05/2017, 03/17/2018 History of coronary artery stent placement (Chronic 05/29/17) TRES-Mid LAD w/ Synergy 2.5 X 28 mm, TRES-Prox LAD w/ Synergy 3.0 X 16 mm 05/29/17 H/O coronary artery bypass surgery (Chronic 03/22/18) CABG x 1- ODEN to LAD 03/22/18 Essential (primary) hypertension (Chronic) Hyperlipemia (Chronic) You will use the following diet at home:: Calorie/Carbohydrate Controlled (specify 1200, 1400, etc) - 1800 Your food should be the consistency of: Regular Your liquids should be the consistency of: Regular/Thin Call your doctor if you observe: Fever of 101 or Higher, Shortness of breath, Fainting spells Additional Instructions: Self isolate for at least 10 days since symptoms began or the first postive COVID-19 test AND at least one day (24 hours) have passed since resolution of fever without the use of fever-reducing agents AND improvement of symptoms (e.g., cough, shortness of breath) When around people in the same room, wear a face mask. Individuals also in the room should wear a mask. If possible, use a different bathroom and bedroom. Perform adequate hand hygiene. Avoid sharing dishes, glasses, etc. Allergies/Adverse Reactions: Allergies Sulfa (Sulfonamide Antibiotics) Allergy (Verified 08/05/20 11:24) PT UNSURE OF REACTION ticagrelor [From Brilinta] Allergy (Verified 04/01/20 13:59) Shortness of breath atorvastatin Adverse Reaction (Severe, Verified 04/01/20 13:59) Myalgias isosorbide Adverse Reaction (Severe, Verified 04/01/20 13:59) Severe headaches & nausea lovastatin Adverse Reaction (Severe, Verified 04/01/20 13:59) Severe Myalgias simvastatin Adverse Reaction (Severe, Verified 04/01/20 13:59) Myalgias lactose Adverse Reaction (Verified 04/01/20 13:59) Nausea nitroglycerin Adverse Reaction (Verified 08/05/20 11:24) LOW BP Ahhtbbg-Vtm-Gju Reductase Inhibitor Adverse Reaction (Verified 04/01/20 13:59) Pain in joints CREATINE Allergy (Uncoded 04/01/20 13:59) Unknown Medications to take at Discharge Clopidogrel Bisulfate [Plavix] 75 mg PO DAILY 07/13/17 Metoprolol Tartrate [Lopressor (beta neo)] 25 mg PO BID 03/18/18 insulin glargine U-300 conc 300 unit/mL (1.5 mL) subcutaneous pen 18 unit SC QDAY ml 04/11/18 metformin 500 mg tablet 500 mg PO BID 04/11/18 docusate sodium 100 mg capsule 100 mg PO BID PRN cap 02/20/19 insulin aspart U-100 100 unit/mL (3 mL) subcutaneous pen See Rx Instructions SC QACHS ml 02/20/19 levothyroxine 75 mcg tablet 88 mcg PO DAILY tab 02/21/19 ezetimibe 10 mg tablet 10 mg PO DAILY 08/22/19 aspirin 81 mg tablet,delayed release 81 mg PO DAILY tab 04/01/20 cetirizine 10 mg capsule 10 mg PO DAILY cap 04/01/20 Primary Care Physician: Chandan Sanchez MD [Primary Care Provider] - Within 2 Weeks Test Results: Test results from this visit will be discussed in further detail at your follow- up appointment, if applicable. Proposed Discharge Date: 08/07/20
--- NOTE | 2020-08-07 11:17 | DS.PCM_ITS ---
Discharge Date and Diagnosis - Problem List Patient Problems: Active and Suspected Problems (Last Updated 08/05/20 @ 14:[address] Curt Morgan MD) Lactic acidosis (Acute) UTI (urinary tract infection) (Acute) Weakness (Acute) Contusion of right shoulder (Acute) COVID-19 virus infection (Acute) Hyponatremia (Acute) Syncope (Acute) Acute kidney injury (Acute) Date of Admission: 08/05/20 Date of Discharge: 08/07/20 - Primary Discharge Diagnosis Acute Problems: Active Problems (Last Updated 08/05/20 @ 14:[address] Curt Morgan MD) Lactic acidosis (Acute) UTI (urinary tract infection) (Acute) Weakness (Acute) Contusion of right shoulder (Acute) COVID-19 virus infection (Acute) Hyponatremia (Acute) Syncope (Acute) Acute kidney injury (Acute) - Secondary Discharge Diagnosis Chronic Problems: Chronic Problems (Last Updated 08/05/20 @ 14:[address] Curt Morgan MD) Ischemic cardiomyopathy (Chronic) Type 2 diabetes mellitus (Chronic) Atherosclerosis of coronary artery of [place] heart without angina pectoris (Chronic) CABG x 1- ODEN to LAD 03/22/18 TRES-Mid LAD w/ Synergy 2.5 X 28 mm, TRES-Prox LAD w/ Synergy 3.0 X 16 mm 05/29/17 NSTEMI (non-ST elevated myocardial infarction) (Chronic 03/17/18) 05/2017, 03/17/2018 History of coronary artery stent placement (Chronic 05/29/17) TRES-Mid LAD w/ Synergy 2.5 X 28 mm, TRES-Prox LAD w/ Synergy 3.0 X 16 mm 05/29/17 H/O coronary artery bypass surgery (Chronic 03/22/18) CABG x 1- ODEN to LAD 03/22/18 Essential (primary) hypertension (Chronic) Hyperlipemia (Chronic) Hospital Course and Treatment Imaging Results: Clinical Impression(s) from Imaging Studies Brain CT 08/05/20 11:56 IMPRESSION: Chronic involutional changes of the brain. Electronically Signed: Chaparro Cuevas, at 12:55 EDT , Service support , Chest X-Ray 08/05/20 11:57 IMPRESSION: Findings suggest a mild degree of linear scarring at the lung bases. Electronically Signed: Chaparro Cuevas, at 13:05 EDT , Service support , Cervical Spine CT 08/05/20 11:58 IMPRESSION: Multilevel degenerative changes, as described above. Electronically Signed: Chaparro Cuevas, at 13:04 EDT , Service support , Shoulder X-Ray 08/05/20 12:00 IMPRESSION: Degenerative changes. Postoperative changes as described. No acute abnormality is seen. Electronically Signed: Chaparro Cuevas, at 13:04 EDT , Service support , CIARRA Brito pulm Operations: None Procedures: None Summary of Care Provided: The patient is a 75 year old F presents with syncope. Patient had a syncopal episode while sitting on the commode.. Patient been having a fever for the preceding 5 days. Patient presented to the emergency room and have been diagnosed with COVID-19 prior to arrival. Patient did have a mild lactic acidosis and her Metformin was discontinued. Patient did have orthostatic vital signs that were positive but today they are performed in patient did have some dizziness and her heart rate did go up from 7090 but she felt otherwise okay and felt stable to go home. Patient has been on oxygen here but we will check an ambulatory pulse ox. For the syncope, patient had a head CT that showed no acute process. Patient is otherwise feeling well and further decline during this hospitalization. [] Patient Problems: Active and Suspected Problems (Last Updated 08/05/20 @ 14:[address] Curt Morgan MD) Lactic acidosis (Acute) UTI (urinary tract infection) (Acute) Weakness (Acute) Contusion of right shoulder (Acute) COVID-19 virus infection (Acute) Hyponatremia (Acute) Syncope (Acute) Acute kidney injury (Acute) - Physical Exam Vitals/I&O's: Vital Signs Temp Pulse Resp BP Pulse Ox 37.1 C 61 16 132/72 H 93 08/07/20 09:27 08/07/20 09:27 08/07/20 09:27 08/07/20 09:27 08/07/20 09:43 Oxygen Flow Rate (L/min) 2 Oxygen Delivery Method Nasal Cannula Weight: 75.2 kg Body Mass Index (BMI) 32.9 Orthostatic Vital Signs Start: 08/06/20 05:27 Freq: q24h Status: Active Protocol: Activity Type Activity Date Activity User E-Sign Co-Sign Detail Recorded Client Recorded Date Recorded By Document 08/06/20 05:27 EEA [id number] 08/06/20 05:35 EEA 08/06/20 05:27 Orthostatic Vitals Standing -Blood Pressure (90/60-120/80) 165/85 H -Extremity Use Right Arm Sitting -Blood Pressure (90/60-120/80) 145/84 H -Extremity Use Right Arm Lying -Blood Pressure (90/60-120/80) 129/72 H -Extremity Use Right Arm Intake and Output for Last 24 Hours 08/05/20 08/06/20 08/07/20 23:59 23:59 23:59 Intake Total 1250 / 1250 2400 / 2400 650.75 / 650.75 Balance 1250 / 1250 2400 / 2400 650.75 / 650.75 General: Alert, No apparent distress HEENT: Atraumatic, Normocephalic Oral: Moist Mucosa, No Gingival or Mucosal Lesions/ Ulcerations Neck: No Nodes, Thyroid Normal Size and Texture Lungs: Clear to auscultation, Normal air movement, No rhonchi, No wheeze Cardiovascular: Regular rate, Regular Rhythm, Normal S1, Normal S2 Psych/Mental Status: - - dizzy up standing. Microbiology Past 72 Hours 08/05/20 Unknown Urine, Clean Catch Urine Culture - Final Presumptive E. coli Mixed Gram Positive Organisms Laboratory Results 08/06/20 05:33: Diff Path Review Reviewed 08/06/20 10:23: POC Glucose 321 H 08/06/20 14:35: Blood Type A POSITIVE 08/06/20 15:56: POC Glucose 418 H 08/06/20 21:40: POC Glucose 338 H 08/07/20 06:40: POC Glucose 172 H 08/07/20 07:30: WBC 6.4, RBC 4.49, Hgb 13.5, Hct 41.2, MCV 91.8, MCH 30.1, MCHC 32.8, RDW Std Deviation 45.4 H, RDW Coeff of Abigail 13.4, Plt Count 197, MPV 10.0 08/07/20 07:30: Sodium 137, Potassium 3.8, Chloride 105, Carbon Dioxide 27.0, Anion Gap 5, BUN 28 H, Creatinine 1.38 H, Estim Creat Clear Calc 42.46, Est GFR (MDRD) Af Amer 48 L, Est GFR (MDRD) Non-Af 40 L, BUN/Creatinine Ratio 20.3 H, Glucose 162 H, Calcium 8.4 L, Total Bilirubin 0.50, AST 32, ALT 29, Alkaline Phosphatase 47, Total Protein 6.5, Albumin 2.8 L, Globulin 3.7, Albumin/Globulin Ratio 0.8 L Current Medications Acetaminophen (Acetaminophen 325 Mg Tablet) 650 mg PO Q6H PRN PRN PRN Reason: Pain Score 1-10/Temp > 100.7 F Last Admin: 08/07/20 09:23 Dose: 650 mg Documented by: Albuterol Sulfate (Albuterol Sulfate 8 Gm Inhaler (60 Puffs)) 2 puff INHALATION Q4H PRN PRN PRN Reason: Shortness of breath, wheezing Aspirin (Aspirin E.C. 81 Mg Tablet) 81 mg PO DAILY [facility] Last Admin: 08/07/20 09:23 Dose: 81 mg Documented by: Clopidogrel Bisulfate (Clopidogrel Bisulfate 75 Mg Tablet) 75 mg PO DAILY [facility] Last Admin: 08/07/20 09:23 Dose: 75 mg Documented by: Dexamethasone (Dexamethasone 4 Mg Tablet) 6 mg PO DAILY@0800 [facility] Stop: 08/14/20 08:01 Last Admin: 08/07/20 09:22 Dose: 6 mg Documented by: Docusate Sodium (Docusate Sodium 100 Mg Capsule) 100 mg PO BID PRN PRN Reason: CONSTIPATION Ezetimibe (Ezetimibe 10 Mg Tablet) 10 mg PO DAILY [facility] Last Admin: 08/07/20 09:23 Dose: 10 mg Documented by: Heparin Sodium (Porcine) (Heparin Injection (Vial) 5,000 Unit/Ml Vial) 5,000 unit SC Q8 [facility] Last Admin: 08/07/20 06:42 Dose: 5,000 unit Documented by: Sodium Chloride () 250 mls @ 15 mls/hr IV .[id number] PRN PRN Reason: Saline Flush Last Infusion: 08/07/20 10:45 Dose: 0 mls/hr Documented by: Sodium Chloride () 250 mls @ 15 mls/hr IV .[id number] PRN PRN Reason: Additional IVPB Infusion Remdesivir 100 mg/ Sodium (Chloride) 250 mls @ 125 mls/hr IV DAILY [facility]; Protocol Stop: 08/10/20 11:59 Last Admin: 08/07/20 10:41 Dose: 125 mls/hr Documented by: Insulin Glargine (Insulin Glargine 100 Units/Ml Pen) 30 units SC DAILY [facility] Last Admin: 08/07/20 09:24 Dose: 30 units Documented by: Insulin Human Lispro (Insulin Lispro 100 Unit/Ml Insuln.Pen) 0 unit SC ACHS [facility]; Protocol Last Admin: 08/07/20 06:42 Dose: 2 u Documented by: Levothyroxine Sodium (Levothyroxine 88 Mcg Tablet) 88 mcg PO DAILY [facility] Last Admin: 08/07/20 09:23 Dose: 88 mcg Documented by: Loratadine (Loratadine 10 Mg Tablet) 10 mg PO DAILY [facility] Last Admin: 08/07/20 09:23 Dose: 10 mg Documented by: Metoprolol Tartrate (Metoprolol Tartrate 25 Mg Tablet) 25 mg PO BID [facility] Last Admin: 08/07/20 09:23 Dose: 25 mg Documented by: Ondansetron HCl (Ondansetron 4 Mg/2 Ml Vial) 4 mg IV Q8H PRN PRN PRN Reason: NAUSEA/VOMITING Senna/Docusate Sodium (Senna/Docusate Sodium 1 Tablet) 2 tablet PO BID PRN PRN PRN Reason: Constipation Sodium Chloride (0.9% Saline Lock 10 Ml Syringe) 10 - 40 ml IV UD PRN PRN Reason: SALINE FLUSH Last Admin: 08/07/20 03:35 Dose: 10 ml Documented by: Zolpidem Tartrate (Zolpidem Tartrate 5 Mg Tablet) 5 mg PO QHS PRN PRN PRN Reason: INSOMNIA Discharge Diet: 1800 Calorie Control Diet Discharge Activity: Return to Normal Activity Call your doctor if you observe: Fever of 101 or Higher, Shortness of breath, Fainting spells Home Medications: Medications to take at Discharge Clopidogrel Bisulfate [Plavix] 75 mg PO DAILY 07/13/17 Metoprolol Tartrate [Lopressor (beta neo)] 25 mg PO BID 03/18/18 insulin glargine U-300 conc 300 unit/mL (1.5 mL) subcutaneous pen 18 unit SC QDAY ml 04/11/18 metformin 500 mg tablet 500 mg PO BID 04/11/18 docusate sodium 100 mg capsule 100 mg PO BID PRN cap 02/20/19 insulin aspart U-100 100 unit/mL (3 mL) subcutaneous pen See Rx Instructions SC QACHS ml 02/20/19 levothyroxine 75 mcg tablet 88 mcg PO DAILY tab 02/21/19 ezetimibe 10 mg tablet 10 mg PO DAILY 08/22/19 aspirin 81 mg tablet,delayed release 81 mg PO DAILY tab 04/01/20 cetirizine 10 mg capsule 10 mg PO DAILY cap 04/01/20 Primary Care Physician: Chandan Sanchez MD [Primary Care Provider] - Within 2 Weeks Disposition: Home Minutes spent on discharge:: 32 Patient Condition:: Fair Medical Necessity - Tobacco Use Smoking Status: Never smoker Meaningful Use Info Meaningful Use Diagnoses (Choose all that apply): None applicable Inpatient E&M: [id number] Disch Hosp
--- NOTE | 2020-08-07 11:34 | PN_ITS ---
Patient Problems: Active and Suspected Problems (Last Updated 08/05/20 @ 14:[address] Curt Morgan MD) Lactic acidosis (Acute) UTI (urinary tract infection) (Acute) Weakness (Acute) Contusion of right shoulder (Acute) COVID-19 virus infection (Acute) Hyponatremia (Acute) Syncope (Acute) Acute kidney injury (Acute) Subjective: Patient did well overnight. Patient has been able to be weaned to room air this morning. Patient did receive convalescent serum overnight and appears to have tolerated this well. Patient reports subjective improvement in overall condition. - Physical Exam Vitals/I&O's: Vital Signs Temp Pulse Resp BP Pulse Ox 37.1 C 61 16 132/72 H 90 08/07/20 09:27 08/07/20 09:27 08/07/20 09:27 08/07/20 09:27 08/07/20 11:30 Oxygen Flow Rate (L/min) 2 Oxygen Delivery Method Room Air Weight: 75.2 kg Body Mass Index (BMI) 32.9 Orthostatic Vital Signs Start: 08/06/20 05:27 Freq: q24h Status: Active Protocol: Activity Type Activity Date Activity User E-Sign Co-Sign Detail Recorded Client Recorded Date Recorded By Document 08/06/20 05:27 EEA [id number] 08/06/20 05:35 EEA 08/06/20 05:27 Orthostatic Vitals Standing -Blood Pressure (90/60-120/80) 165/85 H -Extremity Use Right Arm Sitting -Blood Pressure (90/60-120/80) 145/84 H -Extremity Use Right Arm Lying -Blood Pressure (90/60-120/80) 129/72 H -Extremity Use Right Arm Intake and Output for Last 24 Hours 08/05/20 08/06/20 08/07/20 23:59 23:59 23:59 Intake Total 1250 / 1250 2400 / 2400 650.75 / 650.75 Balance 1250 / 1250 2400 / 2400 650.75 / 650.75 General: Alert, Oriented x3, Cooperative, No apparent distress, Well developed, Well nourished, - - Speaking in full sentences. HEENT: Atraumatic, PERRLA, EOMI, Normocephalic, - - No scleral icterus or injection noted Oral: Moist Mucosa, No Gingival or Mucosal Lesions/ Ulcerations Neck: Supple, No JVD, No Nodes, Trachea Midline Lungs: No rhonchi, No wheeze, No rales, Diminished, - - Does cough with deep inhalation Cardiovascular: Regular rate, Regular Rhythm, Normal S1, Normal S2, No murmurs, No rub noted, No Gallop Abdomen: Bowel Sounds Present, Soft, Non Tender, Non-Distended, Obese Extremities: No clubbing, No cyanosis, Edema - Trace lower extremity Skin: - - No change compared to previous Musculoskeletal: No Tenderness to Palpation of Joints or Extremities Lymphatic: No Cervical, Supraclavicular, or Inguinal Adenopathy Neurological: Neuro grossly intact Psych/Mental Status: Alert and oriented to time, place, person, mood and affect Microbiology Past 72 Hours 08/05/20 11:45 Blood Culture (Wb) - Anticubital Left Blood Culture - Preliminary No growth in 48 hours. 08/05/20 11:50 Blood Culture (Wb) - Anticubital Right Blood Culture - Preliminary No growth in 48 hours. 08/05/20 Unknown Urine, Clean Catch Urine Culture - Final Presumptive E. coli Mixed Gram Positive Organisms Laboratory Results 08/06/20 05:33: Diff Path Review Reviewed 08/06/20 14:35: Blood Type A POSITIVE 08/06/20 15:56: POC Glucose 418 H 08/06/20 21:40: POC Glucose 338 H 08/07/20 06:40: POC Glucose 172 H 08/07/20 07:30: WBC 6.4, RBC 4.49, Hgb 13.5, Hct 41.2, MCV 91.8, MCH 30.1, MCHC 32.8, RDW Std Deviation 45.4 H, RDW Coeff of Abigail 13.4, Plt Count 197, MPV 10.0 08/07/20 07:30: Sodium 137, Potassium 3.8, Chloride 105, Carbon Dioxide 27.0, Anion Gap 5, BUN 28 H, Creatinine 1.38 H, Estim Creat Clear Calc 42.46, Est GFR (MDRD) Af Amer 48 L, Est GFR (MDRD) Non-Af 40 L, BUN/Creatinine Ratio 20.3 H, Glucose 162 H, Calcium 8.4 L, Total Bilirubin 0.50, AST 32, ALT 29, Alkaline Phosphatase 47, Total Protein 6.5, Albumin 2.8 L, Globulin 3.7, Albumin/Globulin Ratio 0.8 L Current Medications Acetaminophen (Acetaminophen 325 Mg Tablet) 650 mg PO Q6H PRN PRN PRN Reason: Pain Score 1-10/Temp > 100.7 F Last Admin: 08/07/20 09:23 Dose: 650 mg Documented by: Albuterol Sulfate (Albuterol Sulfate 8 Gm Inhaler (60 Puffs)) 2 puff INHALATION Q4H PRN PRN PRN Reason: Shortness of breath, wheezing Aspirin (Aspirin E.C. 81 Mg Tablet) 81 mg PO DAILY [facility] Last Admin: 08/07/20 09:23 Dose: 81 mg Documented by: Clopidogrel Bisulfate (Clopidogrel Bisulfate 75 Mg Tablet) 75 mg PO DAILY [facility] Last Admin: 08/07/20 09:23 Dose: 75 mg Documented by: Dexamethasone (Dexamethasone 4 Mg Tablet) 6 mg PO DAILY@0800 [facility] Stop: 08/14/20 08:01 Last Admin: 08/07/20 09:22 Dose: 6 mg Documented by: Docusate Sodium (Docusate Sodium 100 Mg Capsule) 100 mg PO BID PRN PRN Reason: CONSTIPATION Ezetimibe (Ezetimibe 10 Mg Tablet) 10 mg PO DAILY [facility] Last Admin: 08/07/20 09:23 Dose: 10 mg Documented by: Heparin Sodium (Porcine) (Heparin Injection (Vial) 5,000 Unit/Ml Vial) 5,000 unit SC Q8 [facility] Last Admin: 08/07/20 06:42 Dose: 5,000 unit Documented by: Sodium Chloride () 250 mls @ 15 mls/hr IV .[id number] PRN PRN Reason: Saline Flush Last Infusion: 08/07/20 10:45 Dose: 0 mls/hr Documented by: Sodium Chloride () 250 mls @ 15 mls/hr IV .[id number] PRN PRN Reason: Additional IVPB Infusion Remdesivir 100 mg/ Sodium (Chloride) 250 mls @ 125 mls/hr IV DAILY [facility]; Protocol Stop: 08/10/20 11:59 Last Admin: 08/07/20 10:41 Dose: 125 mls/hr Documented by: Insulin Glargine (Insulin Glargine 100 Units/Ml Pen) 30 units SC DAILY [facility] Last Admin: 08/07/20 09:24 Dose: 30 units Documented by: Insulin Human Lispro (Insulin Lispro 100 Unit/Ml Insuln.Pen) 0 unit SC ACHS [facility]; Protocol Last Admin: 08/07/20 11:28 Dose: 6 u Documented by: Levothyroxine Sodium (Levothyroxine 88 Mcg Tablet) 88 mcg PO DAILY [facility] Last Admin: 08/07/20 09:23 Dose: 88 mcg Documented by: Loratadine (Loratadine 10 Mg Tablet) 10 mg PO DAILY [facility] Last Admin: 08/07/20 09:23 Dose: 10 mg Documented by: Metoprolol Tartrate (Metoprolol Tartrate 25 Mg Tablet) 25 mg PO BID [facility] Last Admin: 08/07/20 09:23 Dose: 25 mg Documented by: Ondansetron HCl (Ondansetron 4 Mg/2 Ml Vial) 4 mg IV Q8H PRN PRN PRN Reason: NAUSEA/VOMITING Senna/Docusate Sodium (Senna/Docusate Sodium 1 Tablet) 2 tablet PO BID PRN PRN PRN Reason: Constipation Sodium Chloride (0.9% Saline Lock 10 Ml Syringe) 10 - 40 ml IV UD PRN PRN Reason: SALINE FLUSH Last Admin: 08/07/20 03:35 Dose: 10 ml Documented by: Zolpidem Tartrate (Zolpidem Tartrate 5 Mg Tablet) 5 mg PO QHS PRN PRN PRN Reason: INSOMNIA Medical Necessity - Tobacco Use Smoking Status: Never smoker Assessment/Plan All Active Problems (Last Updated 08/05/20 @ 14:[address] Curt Morgan MD) Orthostatic hypotension (Acute) Lactic acidosis (Acute) UTI (urinary tract infection) (Acute) Weakness (Acute) Contusion of right shoulder (Acute) COVID-19 virus infection (Acute) Hyponatremia (Acute) Syncope (Acute) Acute kidney injury (Acute) RECOMMENDATIONS: 1. Walking oximetry prior to discharge 2. Patient will need to watch blood sugars closer for the next 48 to 72 hours given steroids 3. May need supplemental oxygen on discharge 4. If discharged, patient should have pulse oximeter and instructed on reasons for return 5. If patient does not require supplemental oxygen on discharge, pulmonary follow-up is likely not indicated IMPRESSIONS: 1. Acute hypoxic respiratory insufficiency secondary to COVID-19 pneumonia Patient currently receiving remdesivir and Decadron. We will continue to monitor, but patient appears to be stable from a respiratory standpoint at this time. Given 5 days of symptoms, progression could be seen. If patient is discharged, but pulse oximeter along with instructions for return should be reviewed. Doubt patient's hypoxia was the etiology for syncopal event. Patient likely does not require follow-up with pulmonary if walking oximetry does not show a need for supplemental oxygen prior to discharge. 2. Syncope Unclear etiology. But more than likely patient had a vasovagal event. Orthostatics are not suggestive of dehydration or volume depletion. Patient has had some decreased oral intake per her report. Continue to monitor with telemetry 3. Diabetes mellitus type 2, uncontrolled/CKD stage III versus acute kidney injury/hypertension/advanced age/obesity Complicates care, management, recovery and prognosis. Losartan and hydrochlorothiazide have been held. Continue to monitor renal function. No indication for renal replacement therapy at this time. Do anticipate significant worsening of glucose control given Decadron therapy. Patient should watch blood sugars closely for the next 48 hours Inpatient E&M: [id number] [facility] H[facility] L2
[2020-08-07 12:21] LABS: Bedside Glucose 288 mg/dL (70-110)
--- NOTE | 2020-08-09 16:01 | CASEMGMT ---
SARAH BEST DC PHONE CALL DC DATE: 08/07/20 DC DISPOSITION: Home DC DIAGNOSIS: SARS COVID 2 Intro role of CM to patient via phone. the patient still sounds tired and states she has no energy. SARAH BEST reviewed medicines with her and she stated she had not taken them regularly when she go home because I'm too tired. SARAH BEST did let her know importance of taking her medications and encouraged her to do this after phone call. She has s.o. at home who can assist her also. Patient did say she would do this. -no further needs identified. family can bring groceries, etc for the. -pt is aware to contact PCP with any worsening symptoms. Patient did not need home oxygen on discharge. -no care improvement suggestions were given. Liss FRIEND RN ACM
== END 2020-08-07 15:45 | disposition home or self-care (01) | DRG 178 ==
LOC: ED 14:36 → MS2 15:49
PROVIDERS: Internal Medicine Infectious Disease; Admitting Provider Hospitalist; Emergency Provider Emergency Medicine; PCP Family Medicine
DX: U07.1 COVID-19 (principal); E87.2 Acidosis; E87.1 Hypo-osmolality and hyponatremia; N17.9 Acute kidney failure, unspecified; R55 Syncope and collapse; S40.011A Contusion of right shoulder, initial encounter; I25.10 Atherosclerotic heart disease of native coronary artery without angina pectoris; Z95.1 Presence of aortocoronary bypass graft; Z79.02 Long term (current) use of antithrombotics/antiplatelets; Z87.891 Personal history of nicotine dependence; W18.30XA Fall on same level, unspecified, initial encounter; Y93.89 Activity, other specified; Y92.002 Bathroom of unspecified non-institutional (private) residence as the place of occurrence of the external cause; Y99.8 Other external cause status; Z79.899 Other long term (current) drug therapy; Z79.4 Long term (current) use of insulin; T50.2X5A Adverse effect of carbonic-anhydrase inhibitors, benzothiadiazides and other diuretics, initial encounter; E86.1 Hypovolemia; E86.0 Dehydration; I25.5 Ischemic cardiomyopathy; E78.5 Hyperlipidemia, unspecified; R09.02 Hypoxemia; I12.9 Hypertensive chronic kidney disease with stage 1 through stage 4 chronic kidney disease, or unspecified chronic kidney disease; N18.30 Chronic kidney disease, stage 3 unspecified; E11.22 Type 2 diabetes mellitus with diabetic chronic kidney disease; E66.9 Obesity, unspecified; Z68.32 Body mass index [BMI] 32.0-32.9, adult; R06.89 Other abnormalities of breathing
CPT/HCPCS: 36415; 70450; 71045; 72125; 73030; 80048; 80053; 81001; 82962; 83605; 83615; 84145; 84484; 85025; 85027; 85379; 85610; 85730; 86644; 86900; 86901; 87040; 87086; 87088; 87635; 87804; 93005; 97162; 97166; 99285; C9803; J7030; J7040; J7050; A4216; U0002; U0003

== ENCOUNTER 2020-12-16 12:48 | Outpatient (RCR) | payer MEDICARE, SELFPAY ==
[2020-08-05 17:27] VITALS: BMI 32.9
[2020-12-16] MEDS: COVID-19 VACC, MRNA(PFIZER)/PF 30 MCG/0.3 ML SYRINGE IM (09:09)
[2021-01-06] MEDS: COVID-19 VACC, MRNA(PFIZER)/PF 30 MCG/0.3 ML SYRINGE IM (08:35)
== END 2021-03-15 23:59 ==
LOC: IMMUN 12:48
PROVIDERS: Visit Provider Family Medicine
DX: Z23 Encounter for immunization (principal)
CPT/HCPCS: 0001A; 0002A; 91300

== ENCOUNTER → 2022-05-24 | Outpatient (CLI) | payer MEDICARE, SELFPAY ==
--- NOTE | 2022-05-24 20:01 | STRESSREP ---
Stress Test Report Pharmacologic myocardial perfusion stress test. 77-year-old lady with a history of chest pain. Stress protocol: Resting EKG demonstrates normal sinus rhythm with a rate of 58 bpm normal intervals are noted resting blood pressure is 134/82 mmHg. 0.4 mg of regadenoson was infused per usual protocol followed by rapid intravenous saline flush injection continuous EKG monitoring was performed. The maximum heart rate attained was 97 bpm which was 67% of max impacted heart rate the maximum workload was 1 metabolic equivalent. At rest there were no ST or T wave changes noted to suggest abnormal flow reserve and at peak infusion nonspecific ST changes were noted with did not meet the criteria for ischemia. The resting blood pressure was 134/82 with a final blood pressure 130/72. Myocardial perfusion protocol. 11.8 mCi of technetium 99m sestamibi was injected at rest. 0.4 mg of regadenoson was infused per usual protocol. At peak infusion 34.6 mCi of technetium 99m sestamibi was injected stress images were obtained stress and rest images were reconstructed in comparing the short axis vertical long and horizontal long axis. Gated images were also obtained to Perfusion SPECT analysis: Review of the stress images demonstrate normal uptake of tracer noted in all areas of the myocardium. The resting images similarly demonstrate normal uptake of tracer noted in all areas of the myocardium. No areas of reversibility are noted to suggest ischemia and no previous infarct is noted. Gated SPECT analysis: The gated ejection fraction is noted to be 84%. Conclusion: Normal pharmacologic myocardial perfusion stress test. Preserved ejection fraction.
== END | disposition home or self-care (01) ==
PROVIDERS: PCP Family Medicine; Referring Provider Physician Assistant Medical; Visit Provider Physician Assistant Medical
DX: R07.9 Chest pain, unspecified (principal)
CPT/HCPCS: 78452; 93017; A9500; A4216; J2785

== ENCOUNTER 2022-12-15 23:38 | Emergency (ER) | payer MEDICARE, SELFPAY ==
[2022-12-15 23:40] VITALS: BP 221/104; PULSE 103; RESP 21; TEMP 36.1; O2SAT 98; BMI 35.3
[2022-12-15 23:51] VITALS: BP 185/91
--- NOTE | 2022-12-16 00:04 | ED.VIS.CHEST ---
HPI History of Present Illness Chief Complaint: Chest Pain Informant: patient Narrative Narrative: Patient woke up with right-sided chest discomfort today, worse with exertion, which would also make her dyspneic. Pain has not gone away all day. She states now tonight, has moved across toward the left parasternal region and is feeling tight instead of sore like it was before. Occasional pleuritic component when she takes deep breaths. No leg pain or swelling. No history of DVT or PE. She takes aspirin and clopidogrel, has a history of stents. No recent cold/cough symptoms. No orthopnea, fevers, chills. Compliant with her prescription medications, has tried no other medications to try to treat this today. [facility] Medical History Atherosclerosis of coronary artery of [place] heart without angina pectoris Central sleep apnea COVID-19 (~07/2020) Essential (primary) hypertension Hyperlipemia Hypothyroidism Ischemic cardiomyopathy NSTEMI (non-ST elevated myocardial infarction) (03/17/18) Type 2 diabetes mellitus Home Medications clopidogrel 75 mg tablet 75 mg PO DAILY 07/13/17 [History Last Taken Unknown] metoprolol tartrate 25 mg tablet 25 mg PO BID BLOOD PRESSURE 03/18/18 [History Last Taken Unknown] insulin aspart U-100 100 unit/mL (3 mL) subcutaneous pen See Rx Instructions subcut QACHS DIABETES 02/20/19 [History Last Taken Unknown] ezetimibe 10 mg tablet 10 mg PO DAILY 08/22/19 [History Last Taken Unknown] aspirin 81 mg tablet,delayed release (Adult Aspirin Regimen) 81 mg PO DAILY 04/01/20 [History Last Taken Unknown] cetirizine 10 mg capsule (Zyrtec) 10 mg PO DAILY 04/01/20 [History Last Taken Unknown] docusate sodium 100 mg capsule 100 mg PO DAILY Constipation 04/15/21 [History Last Taken Unknown] hydrochlorothiazide 25 mg tablet 25 mg PO DAILY 04/15/21 [History Last Taken Unknown] insulin glargine U-300 conc 300 unit/mL (1.5 mL) subcutaneous pen (Toujeo SoloStar U-300 Insulin) 28 unit subcut QDAY 04/15/21 [History Last Taken Unknown] levothyroxine 88 mcg tablet 88 mcg PO DAILY 04/15/21 [History Last Taken Unknown] losartan 25 mg tablet 25 mg PO DAILY 04/15/21 [History Last Taken Unknown] mecobalamin (vitamin B12) 1,000 mcg disintegrating tablet,sublingual 1,000 mcg sublingual DAILY 04/15/21 [History Last Taken Unknown] metformin 500 mg tablet,extended release 24 hr 500 mg PO BID 04/15/21 [History Last Taken Unknown] allopurinol 100 mg tablet 100 mg PO DAILY PRN PAIN 04/20/22 [History Last Taken Unknown] Allergy/AdvReac Type Severity Reaction Status Date / Time Sulfa (Sulfonamide Allergy PT UNSURE Verified 12/15/22 23:39 Antibiotics) OF REACTION ticagrelor [From Brilinta] Allergy Shortness Verified 12/15/22 23:39 of breath atorvastatin AdvReac Severe Myalgias Verified 12/15/22 23:39 isosorbide AdvReac Severe Severe Verified 12/15/22 23:39 headaches & nausea lovastatin AdvReac Severe Severe Verified 12/15/22 23:39 Myalgias simvastatin AdvReac Severe Myalgias Verified 12/15/22 23:39 lactose AdvReac Nausea Verified 12/15/22 23:39 nitroglycerin AdvReac LOW BP Verified 12/15/22 23:39 [id number] Reductase AdvReac Pain in Verified 12/15/22 23:39 Inhibitor joints [[id number]-Oxx-Tse Reductase Inhibitor] CREATINE Allergy Unknown Uncoded 12/15/22 23:39 Family History Mother CAD (coronary artery disease) Surgical History H/O coronary artery bypass surgery (03/22/18) H/O ovarian cystectomy History of bladder suspension procedure History of coronary artery stent placement (05/29/17) History of hysterectomy History of repair of rotator cuff History of tonsillectomy Social History Smoking Status: Never smoker alcohol intake: never substance use type: does not use diet: lactose free caffeine: Yes Type: tea Number of servings: 2 what type of physical activity do you participate in: walking frequency: 3-4 times per week duration: 15-30 minutes/day seatbelt use: always do you feel safe at home: Yes ROS ROS ED Constitutional Constitutional ED: Denies chills or fever(s) Eyes Eyes: Denies change in vision or diplopia ENT ENT ED: Denies rhinorrhea or sore throat Cardiovascular Cardiovascular: Reports chest pain; Denies orthopnea or palpitations Respiratory/Chest Respiratory/Chest: Reports dyspnea on exertion; Denies cough or orthopnea Gastrointestinal Gastrointestinal: Denies abdominal pain, diarrhea, nausea or vomiting Genitourinary Genitourinary ED: Denies dysuria or hematuria Musculoskeletal Musculoskeletal: Denies back pain or neck pain Integumentary Denies abscess or rash Neurologic Neurologic: Denies headache(s), paresthesias or weakness Psychiatric Psychiatric: Denies anxiety or suicidal thoughts EXAM Physical Exam Const Vital Signs: 12/15/22 23:40 12/15/22 23:42 12/15/22 23:51 Temperature 96.9 F L Temperature Source Temporal Pulse Rate 103 H Respiratory Rate 21 H Respiratory Effort Normal Respiratory Pattern Normal Blood Pressure 221/104 H 185/91 H Blood Pressure Mean 143 122 Pulse Ox 98 Oxygen Delivery Method Room Air 12/16/22 00:12 12/16/22 00:38 Temperature Temperature Source Pulse Rate 85 Respiratory Rate 16 Respiratory Effort Respiratory Pattern Blood Pressure 142/72 H Blood Pressure Mean 95 Pulse Ox 97 Oxygen Delivery Method Room Air Room Air Positive well nourished, well developed and obese General Appearance ED: well developed and NAD Nutritional Appearance: obese HEENT Reports moist mucous membranes normocephalic and atraumatic Eyes PERRL and EOMs intact bilaterally Neck full ROM and supple Resp normal respiratory effort and clear to auscultation bilaterally Effort and Inspection: able to speak in complete sentences Cardio regular rate, regular rhythm and no murmurs Rate: tachycardic GI non-tender and non-distended Auscultation: normoactive bowel sounds Palpation: soft Back/Spine no CVA tenderness General Back: other FROM Extremity normal to inspection General Extremety ED: Negative for edema, pulses abnormal or tenderness General Extremity: Negative for edema or pulses abnormal Neuro oriented x3, CN's II-XII intact bilaterally and no sensory deficits noted Sensorium / Orientation: awake and alert Motor Exam: strength 5/5 throughout Skin no rashes or lesions noted and no wounds Heart Score History: Slightly/Non-Suspicious ECG: Normal Age: >/= 65 years Risk Factors: >/= 3 Risk Factors or History of CAD Troponin: </= Normal Limit Score: 4 MDM MDM MDM Narrative Medical decision making narrative: Given patient's symptoms and extreme hypertension I ordered nitroglycerin understanding she had a reaction to it 1 other time, the context of that was unknown. Patient refuses to take this, which I understand, so instead I ordered her morphine and a dose of hydralazine after confirming she does not have a history of aortic stenosis. The hydralazine was held because her blood pressure on repeat was in the 140s. She was given the morphine, however her pain was down to a 1/10 prior to the nurses giving the morphine, apparently they gave it anyway. The patient had resolution of her pain after that and felt the effects of the morphine but was able to walk with assistance without significant dyspnea and no hypoxemia. Her tachycardia resolved. Her work-up is unremarkable. Her EKG shows nothing acute, her troponin and BNP are negative, and her D-dimer is well within normal limits ruling out acute pulmonary embolus as cause for the symptoms. Her blood pressure was very high when she first got here, 221/104. Certainly this could have been causing some of her symptoms, but since she does not have any evidence of acute coronary syndrome and comfortable with her going home. In discussing discharge plan, the patient states multiple times that she has significant allergies and always has nasal congestion and sneezing that seems to be worse at night, and she does have an albuterol inhaler but did not remember it, so she did not try it. She does not feel dyspneic right now, I recommend trying it at home if she needs it over the weekend until she can follow-up with her doctor after the weekend. History & Record Review Additional record(s) reviewed:: Prior outpatient record (Echo from [facility], 2019: Relatively unremarkable, grade 1 diastolic dysfunction, EF 55-60%, no aortic stenosis, mild/trace MR, TR) Lab Data Attestation: I reviewed the patient's lab results. Labs: Laboratory Results - last 24 hr 12/16/22 12/16/22 12/16/22 00:06 00:06 00:06 WBC 11.9 H RBC 5.47 H Hgb 15.9 H Hct 50.0 H MCV 91.4 MCH 29.1 MCHC 31.8 L RDW Std Deviation 47.2 H RDW Coeff of Abigail 14.0 Plt Count 280 MPV 9.6 Immature Gran % (Auto) 0.300 Neut % (Auto) 46.9 L Lymph % (Auto) 41.8 H Garza % (Auto) 7.2 Eos % (Auto) 3.3 Baso % (Auto) 0.5 Absolute Neuts (auto) 5.6 Absolute Lymphs (auto) 4.96 H Nucleated RBC % 0 APTT 30.4 D-Dimer Quant (PE/DVT) 0.41 Sodium 138 Potassium 3.9 Chloride 104 Carbon Dioxide 22.0 Anion Gap 12 BUN 26 H Creatinine 1.30 H Estim Creat Clear Calc 46.15 Est GFR (MDRD) Af Amer 51 L Est GFR (MDRD) Non-Af 42 L BUN/Creatinine Ratio 20.0 Glucose 166 H Calcium 9.6 Troponin I High Sens 5 B-Natriuretic Peptide 12/16/22 00:06 WBC RBC Hgb Hct MCV MCH MCHC RDW Std Deviation RDW Coeff of Abigail Plt Count MPV Immature Gran % (Auto) Neut % (Auto) Lymph % (Auto) Garza % (Auto) Eos % (Auto) Baso % (Auto) Absolute Neuts (auto) Absolute Lymphs (auto) Nucleated RBC % APTT D-Dimer Quant (PE/DVT) Sodium Potassium Chloride Carbon Dioxide Anion Gap BUN Creatinine Estim Creat Clear Calc Est GFR (MDRD) Af Amer Est GFR (MDRD) Non-Af BUN/Creatinine Ratio Glucose Calcium Troponin I High Sens B-Natriuretic Peptide 5.4 Radiography Chest X-Ray - ED: 1 View, Read by ED Physician, No Acute Disease, Chronic Changes and No Infiltrates Diagnostic Testing: Clinical Impression(s) from Imaging Studies Chest X-Ray 12/16/22 00:10 IMPRESSION: Mild bibasilar scarring versus atelectasis. Electronically Signed: Austin Paredes MD at 1:06 EST , Rhythm Strip Rhythm Strip: Sinus Tach Rate: 105 Ectopy: PAC(s) EKG Initial EKG: Attestation: I personally reviewed and interpreted this EKG as follows: Interpretation: No Acute Injury Pattern and Sinus Tachycardia Comments: PAC; T-wave flattening vs. artifact inf Discharge Plan Triage Chief Complaint: Chest Pain ED Provider: Luciano Patel Dx/Rx/DC Orders Clinical Impression: Atypical chest pain, BISHOP (dyspnea on exertion), Episode of hypertension Instructions: Hypertension Dc, ED Chest Pain, Uncertain Cause Prescriptions: No Action Tourajesh SoloStar U-300 Insulin 300 unit/mL (1.5 mL) insulin pen 28 unit SC QDAY ezetimibe 10 mg tablet 10 mg PO DAILY Zyrtec 10 mg capsule 10 mg PO DAILY aspirin [Adult Aspirin Regimen] 81 mg tablet,delayed release (DR/EC) 81 mg PO DAILY Rx Instructions: HASN'T TAKEN IT FOR SEVERAL WEEKS--NOSE BLEED losartan 25 mg tablet 25 mg PO DAILY mecobalamin (vitamin B12) 1,000 mcg tablet,disintegrating 1,000 mcg sublingual DAILY Rx Instructions: place tablet under tongue and allow to dissolve for at least30 secs before swallowing metformin 500 mg tablet extended release 24 hr 500 mg PO BID levothyroxine 88 mcg tablet 88 mcg PO DAILY hydrochlorothiazide 25 mg tablet 25 mg PO DAILY allopurinol 100 mg tablet 100 mg PO DAILY PRN (Reason: PAIN) docusate sodium 100 mg capsule 100 mg PO DAILY clopidogrel 75 MG tablet 75 mg PO DAILY metoprolol tartrate 25 MG tablet 25 mg PO BID insulin aspart U-100 100 unit/mL (3 mL) insulin pen See Rx Instructions SC QACHS Label Comments: Sliding scale SC QACHS; Rx Instructions: Sliding scale SC QACHS; Primary Care Provider: Chandan Sanchez Referrals: Chandan Sanchez MD [Primary Care Provider] - (Call for follow-up appointment after the weekend) Disposition Disposition: Home, Self Care
[2022-12-16] MEDS: Aspirin 81 MG TAB.CHEW 162 MG PO (00:10)
--- NOTE | 2022-12-16 00:10 | RAD_ITS ---
INDICATION: chest pain EXAMINATION/TECHNIQUE: X-RAY - AP view of chest COMPARISON: Chest x-ray from 08/05/2020 FINDINGS: LINES/DEVICES: None. LUNGS: Mild bibasilar scarring versus atelectasis. Stable slightly elevated right hemidiaphragm. No sizable pleural effusion. No detectable pneumothorax. MEDIASTINUM AND CARDIOVASCULAR STRUCTURES: Heart size within normal limits for imaging technique. Previous sternotomy. Atherosclerotic calcifications along aorta. BONES AND SOFT TISSUES: Skeletal degenerative changes. Right humeral head rotator cuff anchor screw noted. RAD/Chest 1 View (Portable) IMPRESSION: Mild bibasilar scarring versus atelectasis. Electronically Signed: Austin Paredes MD at 1:06 EST ,
[2022-12-16 00:13] LABS: Absolute Lymphocyte Count 4.96 X10^3/uL (0.83-4.51); Absolute Neutrophil Count 5.6 X10^3/uL (2.0-7.7); Basophil# 0.06 X10^3/uL; Basophil% 0.5 % (0-1); Eosinophil# 0.39 X10^3/uL; Eosinophils% 3.3 % (0-5); Hemoglobin 15.9 g/dL (12.0-15.0); Lymphocyte # 4.96 X10^3/ul (0.83-4.51); Lymphocyte % 41.8 % (19-41); Mean Corp Hgb Conc 31.8 g/dL (32-36); Mean Corpuscular Hgb 29.1 pg (27.0-32.0); Mean Corpuscular Volume 91.4 fL (81-99); Mean Platelet Vol. 9.6 fl (6.2-12.0); Monocyte# 0.85 X10^3/uL; Monocyte% 7.2 % (0-10); NRBC Flagged by Analyzer 0 % (0-5); Neutrophil # 5.56 X10^3/uL (2.7-7.7); Neutrophil % 46.9 % (47-70); Platelet Count 280 K/mm3 (150-450); RBC Distribution Width SD 47.2 fl (35.1-43.9); Red Blood Count 5.47 M/mm3 (4.2-5.4); White Blood Count 11.9 K/mm3 (4.4-11.0)
[2022-12-16 00:27] LABS: D-Dimer Quantitative (DVT/PE) 0.41 FEU/ug/m (0.27-0.49)
[2022-12-16 00:36] LABS: BNP,B-Type NATRIURETIC PEPTIDE 5.4 pg/mL (0-100)
[2022-12-16 00:38] VITALS: BP 142/72; PULSE 85; RESP 16; O2SAT 97
--- NOTE | 2022-12-16 00:38 | ED.RN ---
MD AWARE PT REFUSING NITRO BECAUSE SHE HAD TAKEN THE ,MED BEFORE AND SHE HAD HER BP LOWERED,SHE .
[2022-12-16 00:39] LABS: Anion Gap 12 (5-15); BUN 26 mg/dL (7-18); Calcium,Total 9.6 mg/dL (8.5-10.1); Chloride 104 mmol/L (98-107); EST Glomerular Filtration Rate 42 mL/min (>60); Est Glom Filt Rate - Afr Amer 51 mL/min (>60); Estimated Creatinine Clearance 46.15 ml/min; Glucose 166 mg/dL (74-106); Potassium 3.9 mmol/L (3.5-5.1); Sodium Level 138 mmol/L (136-145); Troponin-I HS 5 pg/mL (3.0-54.0)
[2022-12-16 00:59] LABS: Partial Thromboplast Time 30.4 Seconds (24.1-36.2)
[2022-12-16] MEDS: Morphine 2 MG/ML Syringe IV (01:00)
[2022-12-16 01:32] VITALS: PULSE 69; RESP 16; O2SAT 99
== END 2022-12-16 01:48 | disposition home or self-care (01) ==
PROVIDERS: Emergency Provider Emergency Medicine; PCP Family Medicine; Visit Provider Emergency Medicine
DX: R07.89 Other chest pain (principal); E11.9 Type 2 diabetes mellitus without complications; I10 Essential (primary) hypertension; I25.10 Atherosclerotic heart disease of native coronary artery without angina pectoris; E78.5 Hyperlipidemia, unspecified; R06.09 Other forms of dyspnea; E66.9 Obesity, unspecified
CPT/HCPCS: 71045; 80048; 83880; 84484; 85025; 85379; 85730; 93005; 96374; 99284; A4216

== ENCOUNTER → 2023-01-19 | Outpatient (CLI) | payer MEDICARE, SELFPAY ==
--- NOTE | 2023-01-19 11:47 | RAD_ITS ---
STUDY: X-RAY - PELVIS AND BILATERAL HIPS REASON FOR EXAM: Female, 77 years old. Pain. Evaluate for arthritis. TECHNIQUE: AP view of the pelvis.? 2 views of the right hip, and 2 views of the left hip were obtained. COMPARISON: None. FINDINGS: There is a non-specific bowel gas pattern. Phleboliths. Osteopenia. Normal bilateral iliac wings, sacroiliac joints and visualized sacrum. Normal bilateral superior and inferior pubic rami. Normal pubic symphysis. Normal bilateral ischial tuberosities. Moderate arthrosis of both hips, right slightly greater than left. RAD/Hips B/L min 2 views w/ Pelvis IMPRESSION: Moderate arthrosis of both hips, right slightly greater than left. No acute abnormality, evidence of erosive changes/fusion. Electronically Signed: Sean Arias, at 13:57 EDT ,
== END | disposition home or self-care (01) ==
LOC: RAD 11:44
PROVIDERS: PCP Family Medicine; Visit Provider Family Medicine
DX: M16.0 Bilateral primary osteoarthritis of hip (principal)
CPT/HCPCS: 73521

== ENCOUNTER → 2024-01-16 | Outpatient (CLI) | payer MEDICARE, SELFPAY ==
--- NOTE | 2024-01-16 15:37 | STRESSREP ---
Stress Test Report Pharmacologic myocardial perfusion stress test. 78-year-old lady with a history of chest pain Resting EKG demonstrates sinus rhythm with a rate of 60 bpm. Resting blood pressure is 110/70 mmHg. 0.4 mg of regadenoson was infused per usual protocol followed by rapid intravenous saline flush injection. Continuous EKG monitoring was performed. The maximum heart rate was 97 bpm which was 67% of max impacted heart rate the maximum workload was 1 metabolic equivalent. At rest there were no ST or T wave changes noted to suggest ischemia and at peak infusion nonspecific ST changes were noted which did not meet the criteria for ischemia. No clinical angina is noted. The final blood pressure was 116/72 mmHg. Myocardial perfusion protocol. 11.4 mCi of technetium 99m sestamibi was injected at rest. 0.4 mg of regadenoson was infused per usual protocol. At peak infusion 34 mCi of technetium 99m sestamibi was injected stress images were obtained stress and rest images were reconstructed and compared in the short axis vertical long and horizontal long axis. Gated images were also obtained. Perfusion SPECT analysis: Review of the stress images demonstrate normal uptake of tracer noted in all areas of the myocardium with mild reduction noted in the mid anterior wall.. The resting images demonstrated normal uptake of tracer noted in all areas of the myocardium. Mild reversibility in the mid anterior wall cannot be completely excluded. Gated SPECT analysis: The gated ejection fraction is 74%. Conclusion: Mildly abnormal pharmacologic myocardial perfusion stress test. Mild mid anterior wall ischemia is present Preserved ejection fraction.
== END | disposition home or self-care (01) ==
PROVIDERS: PCP Family Medicine; Referring Provider Internal Medicine Cardiovascular Disease; Visit Provider Internal Medicine Cardiovascular Disease
DX: I25.10 Atherosclerotic heart disease of native coronary artery without angina pectoris (principal); R07.9 Chest pain, unspecified
CPT/HCPCS: 78452; 93017; A9500; A4216; J2785

== ENCOUNTER 2024-02-06 06:52 | Day surgery (SDC) | payer MEDICARE, SELFPAY ==
--- NOTE | 2024-01-18 10:22 | RAD_ITS ---
STUDY: X-RAY CHEST REASON FOR EXAM: Female, 78 years old. cp TECHNIQUE: Single frontal view of the chest. COMPARISON: December 16, 2022 FINDINGS: Sternotomy wires. The lungs are clear and expanded. There is no demonstrated pleural abnormality. Normal size heart. Normal mediastinum and tristen. Normal visualized pulmonary arteries. Normal visualized aortic arch and descending thoracic aorta. Normal visualized thoracic spine. Normal visualized ribs, clavicles, and shoulders. There is no demonstrated abnormality of the visualized soft tissue structures of the upper abdomen. RAD/Chest PA and Lateral IMPRESSION: Normal x-ray examination of the chest. Electronically Signed: Karthik Gordon MD at 21:16 EDT ,
[2024-01-18 11:09] LABS: International Normalized Ratio 0.9; Prothrombin Time (Protime)PT. 12.6 SECONDS (11.7-14.9)
[2024-01-18 11:18] LABS: Absolute Lymphocyte Count 2.01 X10^3/uL (0.83-4.51); Absolute Neutrophil Count 3.4 X10^3/uL (2.0-7.7); Basophil# 0.04 X10^3/uL; Basophil% 0.7 % (0-1); Eosinophil# 0.29 X10^3/uL; Eosinophils% 4.7 % (0-5); Hematocrit 40.5 % (37-47); Hemoglobin 12.6 g/dL (12.0-15.0); Lymphocyte # 2.01 X10^3/ul (0.83-4.51); Lymphocyte % 32.9 % (19-41); Mean Corp Hgb Conc 31.1 g/dL (32-36); Mean Corpuscular Hgb 27.8 pg (27.0-32.0); Mean Corpuscular Volume 89.4 fL (81-99); Monocyte# 0.41 X10^3/uL; Monocyte% 6.7 % (0-10); NRBC Flagged by Analyzer 0 % (0-5); Neutrophil # 3.35 X10^3/uL (2.7-7.7); Neutrophil % 54.8 % (47-70); Platelet Count 244 K/mm3 (150-450); RBC Distribution Width SD 45.1 fl (35.1-43.9); Red Blood Count 4.53 M/mm3 (4.2-5.4); White Blood Count 6.1 K/mm3 (4.4-11.0)
[2024-01-18 11:32] LABS: Anion Gap 4 (5-15); BUN 17 mg/dL (7-18); BUN/Creat Ratio 13.8 RATIO (10-20); Chloride 109 mmol/L (98-107); Creatinine, Serum 1.23 mg/dL (0.55-1.02); EST Glomerular Filtration Rate 45 mL/min (>60); Est Glom Filt Rate - Afr Amer 54 mL/min (>60); Glucose 159 mg/dL (74-106); Sodium Level 139 mmol/L (136-145)
--- NOTE | 2024-01-30 13:07 | PCM.HP.BLA ---
History and Physical Date of Admission: 02/06/24 SANDY VALENTE, is a 78-year-old lady with a history of a non-ST elevation myocardial infarction 2016. She had a proximal drug-eluting stent placed today left anterior descending artery. In March 2018 she presented with a non-ST elevation myocardial infarction her cardiac catheterization demonstrated in-stent stenosis of the proximal LAD stent. She underwent single-vessel bypass surgery with a left internal mammary artery to the left anterior descending artery. The right coronary artery in the circumflex artery had luminal irregularities only. She does use her CPAP routinely. She did complain of some chest discomfort on the right side as well as the left side which is usually sharp and nonradiating. She does have some shortness of breath with activity and has been having some fatigue. When she saw you in the office an EKG was done which demonstrated T wave inversion in lead V3 and so she was sent to us for further evaluation and management. She does not have any orthopnea. She denies PND. She does not have any symptoms of congestive heart failure. She does not have any palpitations that she is aware of. She does not have any lightheadedness or dizziness. She does not have any near-syncope or syncope. She does wear compression stockings. She does not have any symptoms of claudication. She did undergo a stress test, this demonstrated Mildly abnormal pharmacologic myocardial perfusion stress test, Mild mid anterior wall ischemia is present, Preserved ejection fraction. She is here today to undergo a diagnostic heart cath. Medical History Atherosclerosis of coronary artery of [place] heart without angina pectoris Central sleep apnea COVID-19 (~07/2020) Essential (primary) hypertension GERD (gastroesophageal reflux disease) Gout Hyperlipemia Hypothyroidism Ischemic cardiomyopathy Memory loss NSTEMI (non-ST elevated myocardial infarction) (03/17/18) Osteoarthritis Type 2 diabetes mellitus Surgical History H/O coronary artery bypass surgery (03/22/18) H/O ovarian cystectomy History of bladder suspension procedure History of coronary artery stent placement (05/29/17) History of hysterectomy History of repair of rotator cuff History of tonsillectomy Family History Mother CAD (coronary artery disease) Father CAD (coronary artery disease) Brother CAD (coronary artery disease) Dementia Social History Smoking Status: Never smoker alcohol intake: never substance use type: does not use diet: lactose free caffeine: Yes Type: tea Number of servings: 2 what type of physical activity do you participate in: walking frequency: 3-4 times per week duration: 15-30 minutes/day seatbelt use: always do you feel safe at home: Yes ROS Const Const: Positive for fatigue; Negative for weakness, headache(s), daytime sleepiness or difficulty sleeping ENT ENT: Positive for dizziness, Nosebleed/epistaxis and balance problems; Negative for headache(s) Cardio Chest Pain: Yes Frequency: daily and other (every three months usually - last week daily) Character: other (twitches and soreness ) Onset: exercise Location: mid sternal Duration: minutes Exacerbation: exercise Relieving: rest Recurrence: exercise Palpitations: No Edema: Bilateral (BLE - wears compression stockings) Resp Respiratory: Positive for SOB with activity; Negative for SOB at rest, SOB orthopnea\SOB lying down or Cough GI GI: Positive for heartburn (at night) and Difficulty Swallowing; Negative nausea or vomiting Musc Musc: Positive for balance problems Neuro Neuro: Positive for dizziness; Negative for lightheadedness, near syncope, headache(s) or weakness Endo Endo: Positive for fatigue Cardiology Exam Const Appearance: cooperative, healthy appearing, comfortable, no acute distress and well developed Orientation: alert, awake and oriented x3 Head Head: normal to inspection Ears: hearing grossly normal bilaterally Nose: external nose normal Face and Sinus: face symmetric Mouth: oral mucosae normal, lip normal and moist mucous membranes Eyes General: appearance normal, both eyes and all related structures Eyelids: eyelids normal Conjunctivae: conjunctivae normal Pupils: PERRL EOM: EOM intact bilaterally Neck Neck: normal visual inspection and trachea midline; Negative no JVD Carotids: Negative bruit Chest Chest inspection: normal inspection of the chest Auscultation: Bilateral: Clear to Auscultation Cardio Palpation: normal PMI Rate: regular rate Rhythm: regular rhythm Heart sounds: S1 normal and S2 normal; Negative rub, gallop or murmur GI GI: soft, no hepatosplenomegaly and bowel sounds present Neuro General: patient alert, patient awake, patient oriented x3 and CN's II-XI intact bilaterally Extremities Pulses: Normal: Right Posterior Tibial Pulse, Left Posterior Tibial Pulse, Right Radial Pulse and Left Radial Pulse Lower Extremity Edema: None: Bilateral Psych Psychological: normal affect Assessment & Plan Assessment/Plan (1) Atherosclerosis of coronary artery of [place] heart without angina pectoris: QUALIFIERS: Coronary Disease-Associated Artery/Lesion type: [place] artery Qualified Code(s): I25.10 - Atherosclerotic heart disease of [place] coronary artery without angina pectoris (2) History of coronary artery stent placement: (3) Ischemic cardiomyopathy: (4) H/O coronary artery bypass surgery: (5) Essential (primary) hypertension: (6) Abnormal stress test: PLAN: Plan With patient's abnormal stress test and symptoms she will undergo a diagnostic heart catheterization. Follow-up will be based upon findings.
[2024-02-05 08:46] VITALS: BMI 34.3
--- NOTE | 2024-02-06 10:06 | ECHOL_ITS ---
Reason For Study: CAD Procedure This was a limited 2D transthoracic echocardiogram. Portable in orthodontic laboratory technician bay. Left Ventricle Normal LV size. Left ventricular systolic function is normal. The estimated ejection fraction is 60 %. No regional wall motion abnormalities noted. Right Ventricle Normal RV size. Normal systolic function. Atria Normal left atrium. Normal right atrium. Mitral Valve Normal mitral valve. Great Vessels Calcified aortic root. The pulmonary artery is normal size. Normal inferior vena cava. Pericardium/Pleural No pericardial effusion. MMode/2D Measurements & Calculations LVIDd: 3.8 cm IVSd: 1.4 cm LVIDs: 2.0 cm LVPWd: 1.1 cm LVAd ap4: 20.6 cm2 FS: 46.2 % LVLd ap4: 6.9 cm EDV(MOD-sp4): 51.9 ml EDV(sp4-el): 52.5 ml LVAs ap4: 11.5 cm2 LVLs ap4: 5.9 cm ESV(MOD-sp4): 19.3 ml ESV(sp4-el): 19.1 ml EF(MOD-sp4): 62.8 % EF(sp4-el): 63.6 % SV(MOD-sp4): 32.6 ml SV(MOD-sp2): 33.7 ml LVAd ap2: 19.9 cm2 LVLd ap2: 6.5 cm EDV(MOD-sp2): 51.5 ml EDV(sp2-el): 51.7 ml LVAs ap2: 11.1 cm2 LVLs ap2: 6.0 cm ESV(MOD-sp2): 17.8 ml ESV(sp2-el): 17.3 ml EF(MOD-sp2): 65.4 % SV(sp4-el): 33.4 ml LA dimension(2D): 3.9 cm ECHO/Echo, Limited Study Interpretation Summary Normal LV size. Left ventricular systolic function is normal. The estimated ejection fraction is 60 %. Calcified aortic root. Ordering Physician: Luís Tejeda Referring Physician: Milad Lucas Performed By: Yvette Arriaga, DANA
--- NOTE | 2024-02-06 16:24 | CL.D_ITS ---
Patient Name: SANDY VALENTE Study Date: 02/06/2024 Performing: Luís Tejeda MD Ht: 59 inches 149.86 cm : 1945 Wt: 170.2 lbs 77.11 kg Age: 79 Gender: female BSA: 1.72 PROCEDURE(S) PERFORMED [id number]-([id number])LHC/COR/CABG CLINICAL PROFILE AND INDICATIONS Indications: Suspected CAD Heart Failure: None Stress/Imaging Date: 01/16/24Stress Test with SPECT MPI: Positive Low Risk CAD Presentations: Stable angina. CONCLUSIONS Atretic ODEN to the LAD and patent previously placed stent in the proximal and mid left anterior descending artery, moderate disease noted in the circumflex artery. Preserved ejection fraction. RECOMMENDATIONS Medical therapy DESCRIPTION OF PROCEDURE The patient arrived to the procedure lab. The risks and benefits of the procedure as well as a full description of our services here and current unavailability of surgical backup were fully explained to the patient and/or their significant other prior to the catheterization. The Timeout was completed, verifying the correct patient and procedure. The patient's procedural site was prepped and draped in the usual fashion. Local anesthetic was given subcutaneously to left radial region with Lidocaine 2%. Using a modified Seldinger technique, arterial access was obtained via the left radial artery, a 6Fr sheath was inserted. Left Coronary Artery selective angiography was performed in multiple views using a 5 Fr. JL3.5 catheter. Right Coronary Artery selective angiography was then performed in multiple views using a 5 Fr. 3DRC (Alhaji) catheter.The arterial sheath was pulled and a TR Band was applied for hemostasis CORONARY ANGIOGRAPHY DOMINANCE: Right Dominant LEFT HEART ASSESSMENT Left Ventricular Ejection Fraction: by Echo 60 % Normal LV wall motion Normal Left Ventricular systolic function LEFT MAIN: Angiographically normal, Mild luminal irregularities LEFT ANTERIOR DESCENDING ARTERY: Medium size vessel which was previously stented in the proximal and mid segment. There is approximately 40 to 50% in-stent stenosis in the proximal stent and 30 to 40% stenosis in the mid segment stent. The rest of the vessel appears to be mildly diseased. CIRCUMFLEX ARTERY: Nondominant vessel with moderate disease of 40 to 50% noted in 3 obtuse marginal branches. RIGHT CORONARY ARTERY: Dominant vessel with mild to moderate diffuse disease with no areas of high-grade stenosis more than 40 to 50%. GRAFTS: ODEN graft to the LAD This vessel is atretic. There is moderate stenosis noted of the left subclavian. COMPLICATIONS No Complications PROCEDURE MEDICATIONS Versed 1 mg IV Fentanyl 50 mcg IV Aspirin (325mg) 1 Tabs PO @ 02/06/2024 07:26:41 Heparin given IA 02/06/2024 08:00:15 Verapamil 2.5mg, Ntg 100mcgs, 3000 units of Heparin given IA 02/06/2024 08:00:15 SUMMARY OF HEMODYNAMIC DATA Time AIR REST ECG 07:19:03 AO 139/65 (95) SA 08:14:13 Signed By Luís Tejeda MD On 02/06/2024 4:23:46 PM Luís Tejeda MD
== END 2024-02-06 11:05 | disposition home or self-care (01) ==
PROVIDERS: Physician Assistant Medical; PCP Family Medicine; Referring Provider Family Medicine; Visit Provider Internal Medicine Cardiovascular Disease
DX: I25.118 Atherosclerotic heart disease of native coronary artery with other forms of angina pectoris (principal); I21.4 Non-ST elevation (NSTEMI) myocardial infarction; E11.9 Type 2 diabetes mellitus without complications; I10 Essential (primary) hypertension; I25.5 Ischemic cardiomyopathy; R94.39 Abnormal result of other cardiovascular function study; E78.5 Hyperlipidemia, unspecified; Z95.5 Presence of coronary angioplasty implant and graft; I25.2 Old myocardial infarction; Z79.02 Long term (current) use of antithrombotics/antiplatelets
CPT/HCPCS: 36415; 71046; 80048; 85025; 85610; 85730; 93308; 93455; 99152; 99153; C1894; J7040; Q9967; C1769

== ENCOUNTER 2024-05-03 11:15 | Inpatient (IN) | payer MEDICARE, SELFPAY ==
[2024-05-03 11:23] VITALS: BP 147/56; PULSE 68; RESP 19; TEMP 36.4; O2SAT 92; BMI 28.9
--- NOTE | 2024-05-03 14:30 | HP.PCM_ITS ---
HPI - General General Date of Admission: 05/03/24 Date of Service: 05/05/24 Chief Complaint: Here for rehabilitation. HPI Narrative SANDY VALENTE, is a 79 Female who presents with followin04/24/2024 OA right hip failed conservative management. 05/01/2024 Admit [facility]. 05/01/2024 Dr. Parker performed right total hip arthroplasty. 05/02/2024 No overnight issues. K 5.4, given Kayexalate, repeat BMP. PT/OT. ST recommended MBS. 05/02/2024 MBS regular solids, thin liquids. Consider GI f/u or esophagram. 05/02/2024 Admit to TCU with debility, here for rehabilitation, strengthening, prior to discharge home with . [facility] Medical History (Updated 05/03/24 @ 14:[address] Mahendra Quispe MD) Gout Osteoarthritis GERD (gastroesophageal reflux disease) Memory loss COVID-19 (~07/2020) Central sleep apnea Hypothyroidism Type 2 diabetes mellitus Essential (primary) hypertension Atherosclerosis of coronary artery of [place] heart without angina pectoris Ischemic cardiomyopathy Hyperlipemia NSTEMI (non-ST elevated myocardial infarction) (03/17/18) Home Medications ?Medication ?Instructions ?Recorded ?Last Taken ?Type clopidogrel 75 mg tablet 75 mg PO DAILY blood thinner 07/13/17 02/06/24 History insulin aspart U-100 100 unit/mL See Rx Instructions subcut QACHS 02/20/19 Unknown History (3 mL) subcutaneous pen DIABETES ezetimibe 10 mg tablet 10 mg PO DAILY cholesterol 08/22/19 05/03/24 08:30 History docusate sodium 100 mg capsule 100 mg PO BID Constipation 04/15/21 Unknown History levothyroxine 88 mcg tablet 88 mcg PO DAILY thyroid 04/15/21 05/03/24 04:20 History mecobalamin (vitamin B12) 1,000 1,000 mcg sublingual DAILY 04/15/21 Unknown History mcg disintegrating tablet,sublingual metformin 500 mg tablet,extended 500 mg PO BID diabetes 04/15/21 02/05/24 History release 24 hr losartan 100 mg tablet 100 mg PO DAILY BP 05/10/23 05/03/24 08:30 History sodium chloride-aloe vera nasal 1 applic topical HS PRN dry nasal 05/10/23 Unknown History gel ([place] Saline nasal gel) passages albuterol sulfate 90 mcg/actuation 1 puff inhalation Q4H PRN 12/20/23 05/02/24 08:20 History aerosol inhaler shortness of breath or wheezing insulin glargine U-300 conc 300 40 unit subcut QDAY 12/20/23 Unknown History unit/mL (1.5 mL) subcutaneous pen (Toujeo SoloStar U-300 Insulin) montelukast 10 mg tablet 10 mg PO QHS allergies 12/20/23 05/02/24 20:20 History pantoprazole 40 mg tablet,delayed 40 mg PO DAILY GERD 12/20/23 02/06/24 History release cetirizine 10 mg capsule (All Day 10 mg PO DAILY allergies 12/21/23 Unknown History Allergy (cetirizine)) colchicine 0.6 mg tablet 0.6 mg PO DAILY PRN inflammation 12/21/23 Unknown History allopurinol 100 mg tablet 200 mg PO DAILY PAIN 03/28/24 Unknown History metoprolol tartrate 25 mg tablet 75 mg PO BID BLOOD PRESSURE 03/28/24 05/03/24 08:30 History aspirin 81 mg tablet,delayed 81 mg PO BID blood clot prevention 05/03/24 05/03/24 08:35 History release (Adult Low Dose Aspirin) carboxymethylcellulose sodium 0.5 1 drp EACH EYE DAILY PRN dry eyes 05/03/24 Unknown History % eye drops (Refresh Tears) cyanocobalamin (vitamin B-12) 500 500 mcg PO DAILY Health maintenance 05/03/24 Unknown History mcg tablet docusate sodium 100 mg capsule 100 mg PO DAILY PRN constipation 05/03/24 Unknown History hydrocodone-acetaminophen 5-325mg 2 tab PO Q4H PRN pain 05/03/24 05/03/24 08:35 History 5mg-325mg ibuprofen 200 mg tablet (Advil) 200 mg PO BID PAIN 05/03/24 Unknown History insulin aspart U-100 100 unit/mL 14 unit subcut TID diabetes 05/03/24 Unknown History (3 mL) subcutaneous pen insulin glargine U-300 conc 300 40 unit subcut QHS diabetes 05/03/24 Unknown History unit/mL (1.5 mL) subcutaneous pen (Toujeo SoloStar U-300 Insulin) polyethylene glycol 3350 17 17 g PO DAILY PRN constipation 05/03/24 Unknown History gram/dose oral powder (ClearLax) tramadol 50 mg tablet 50 mg PO Q6H pain 05/03/24 05/03/24 04:20 History Allergy/AdvReac Type Severity Reaction Status Date / Time Sulfa (Sulfonamide Allergy PT UNSURE Verified 03/28/24 10:23 Antibiotics) OF REACTION ticagrelor (From Brilinta) Allergy Shortness Verified 03/28/24 10:23 of breath atorvastatin AdvReac Severe Myalgias Verified 03/28/24 10:23 isosorbide AdvReac Severe Severe Verified 03/28/24 10:23 headaches & nausea lovastatin AdvReac Severe Severe Verified 03/28/24 10:23 Myalgias simvastatin AdvReac Severe Myalgias Verified 03/28/24 10:23 lactose AdvReac Nausea Verified 03/28/24 10:23 nitroglycerin AdvReac LOW BP Verified 03/28/24 10:23 Tyxalku-RUP-MsV Reductase AdvReac Pain in Verified 03/28/24 10:23 Inhibitor (Tdzxyll-Kyn-Ihv joints Reductase Inhibitor) Family History Mother CAD (coronary artery disease) Father CAD (coronary artery disease) Brother CAD (coronary artery disease) Dementia Surgical History (Updated 05/03/24 @ 14:[address] Mahendra Quispe MD) History of total right hip replacement History of hysterectomy H/O ovarian cystectomy History of bladder suspension procedure History of tonsillectomy History of repair of rotator cuff H/O coronary artery bypass surgery (03/22/18) History of coronary artery stent placement (05/29/17) Social History (Updated 05/03/24 @ 14:[address] Mahendra Quispe MD) household members: spouse Smoking Status: Never smoker alcohol intake: never substance use type: does not use diet: lactose free caffeine: Yes Type: tea Number of servings: 2 what type of physical activity do you participate in: walking frequency: 3-4 times per week duration: 15-30 minutes/day seatbelt use: always do you feel safe at home: Yes ROS Constitutional Constitutional: Reports weakness; Denies chills, fever(s) or weight gain ENT HEENT: Denies headache(s), nasal congestion or nasal discharge Cardiovascular Cardiovascular: Denies chest pain or palpitations Respiratory/Chest Respiratory/Chest: Denies cough, excessive phlegm production or shortness of breath with exertion Gastrointestinal Gastrointestinal: Denies abdominal pain, nausea or vomiting Genitourinary Genitourinary: Denies dysuria Musculoskeletal Musculoskeletal: Denies joint pain or joint swelling Integumentary Integumentary: Denies rash or wounds Neurologic Neurologic: Denies focal weakness, numbness or tingling Psychiatric Psychiatric: Denies anxiety, auditory hallucinations, depression, homicidal ideation or suicidal ideation Vital Signs Vital Signs Vital Signs: 05/03/24 11:23 05/03/24 11:23 Temperature 97.6 F L Temperature Source Temporal Pulse Rate 68 Pulse Rhythm Regular Pulse Strength Normal (2+) Respiratory Rate 19 H Respiratory Effort Normal Non-Labored Respiratory Depth Normal Respiratory Pattern Normal Blood Pressure 147/56 H Blood Pressure Mean 86 Blood Pressure Source Monitor Pulse Ox 92 Oxygen Delivery Method Room Air Room Air Weight Weight: 78.925 kg Body Mass Index (BMI) 28.9 Physical Exam Const alert General Appearance: cooperative HEENT normocephalic Eyes PERRL and EOMs intact bilaterally Neck supple, no JVD and no carotid bruits Resp normal respiratory effort, normal air movement and clear to auscultation bilaterally Cardio regular rate and regular rhythm GI normal to inspection, nondistended, normoactive bowel sounds, non-tender and non-distended Extremity normal capillary refill General Extremity: Negative for edema Skin no rashes or lesions noted General Skin Exam: no breakdown Psych affect normal Appearance: appropriate Results Lab / Micro Data 05/04/24 05:13 05/04/24 05:13 Assessment & Plan Assessment/Plan (1) Debility: (2) Status post total hip replacement, right: (3) Hyperkalemia: (4) Dysphagia: (5) Coronary artery disease: (6) Obstructive sleep apnea: (7) Hyperlipemia: QUALIFIERS: Hyperlipidemia type: pure hypercholesterolemia Q ualified Code(s): E78.00 - Pure hypercholesterolemia, unspecified; E78.0 - Pure hypercholesterolemia (8) Hypothyroidism: (9) B12 deficiency: (10) Type 2 diabetes mellitus with hyperglycemia: (11) Essential (primary) hypertension: (12) GERD (gastroesophageal reflux disease): (13) Gout: (14) Allergic rhinitis: PLAN: Plan 79 year old female with below past medical history hospitalized for right total hip replacement 05/01/[address] Parker, postoperative course complicated by hyperkalemia, dysphagia, admitted to TCU with debility, here for rehabilitation, strengthening, prior to discharge home with . * Debility - PT/OT. * Dysphagia - ST. * Pain - Tylenol 1000mg q8, Tramadol 50mg q6 prn pain (1-5), Oxycodone 5mg q4 prn pain (6-10), Ibuprofen 200mg bid. * Bowel - senna/colace 2 tablets bid, Dulcolax 10mg pr daily prn, Miralax 17gm daily prn, Magnesium citrate 300ml daily prn. * Adult immunization - Administer pneumonia vaccine, covid vaccine, flu vaccine as appropriate. * DVT prophylaxis - Aspirin 81mg bidcm thru 05/23/2024. * Asthma - Singulair 10mg daily, Loratadine 10mg daily, Albuterol 1 puff q4 prn. * Coronary artery disease - Metoprolol 75mg bid, Losartan 100mg daily, Plavix 75mg daily. * Gout - Colchicine 0.6mg daily. * B12 deficiency - B12 500mcg daily. * Hyperlipidemia - Zetia 10mg daily. * Diabetes Mellitus II - Metformin 500mg bidcm, Glargine 40 units qhs, Lispro 14 units tidac. * Hypothyroidism - Levothyroxine 44mcg/88mcg alternating. * Tinea Corporis - Nystatin topical bid. * GERD - Pantoprazole 40gm daily * Dry Eyes - Artificial tears 1gtt ou daily prn.
[2024-05-03] MEDS: Acetaminophen 500 MG Tablet 1000 MG PO ×2 (15:09→22:24)
--- NOTE | 2024-05-03 16:31 | NURSING ---
Patient has emesis when arrives and reports having nausea after medications and that she has not eaten much. Patient educated that pain meds can make stomach upset if taken on am empty stomach and patient agrees that upset stomach often comes after taking [place]. Dr. Quispe made aware and [place] discontinued and NO for oxycodone and Compazine PRN.
[2024-05-03 16:53] LABS: Bedside Glucose 213 mg/dL (74-106)
[2024-05-03] MEDS: metFORMIN (XR) 500 MG Tablet PO (17:57)
[2024-05-03] MEDS: Aspirin E.C. 81 MG Tablet PO (17:57)
[2024-05-03 21:57] LABS: Bedside Glucose 212 mg/dL (74-106)
[2024-05-03] MEDS: Ibuprofen 200 MG Tablet PO (22:25)
[2024-05-03] MEDS: Montelukast 10 MG Tablet PO (22:25)
[2024-05-03] MEDS: Insulin Glargine-YFGN 100 UNIT/ML Pen 40 UNIT SC (22:27)
[2024-05-03 22:30] VITALS: BP 106/49; PULSE 67
[2024-05-03] MEDS: Metoprolol Tartrate 25 MG Tablet 75 MG PO (22:30)
[2024-05-03 22:33] VITALS: BP 106/49; PULSE 67
[2024-05-04 05:24] LABS: Absolute Lymphocyte Count 1.89 X10^3/uL (0.83-4.51); Basophil# 0.03 X10^3/uL; Basophil% 0.3 % (0-1); Eosinophils% 1.1 % (0-5); Hematocrit 31.8 % (37-47); Lymphocyte # 1.89 X10^3/ul (0.83-4.51); Lymphocyte % 20.7 % (19-41); Mean Corp Hgb Conc 31.4 g/dL (32-36); Mean Corpuscular Hgb 26.8 pg (27.0-32.0); Mean Corpuscular Volume 85.3 fL (81-99); Mean Platelet Vol. 10.1 fl (6.2-12.0); Monocyte# 1.08 X10^3/uL; Monocyte% 11.8 % (0-10); NRBC Flagged by Analyzer 0 % (0-5); Neutrophil # 5.99 X10^3/uL (2.7-7.7); Neutrophil % 65.4 % (47-70); Platelet Count 227 K/mm3 (150-450); RBC Distribution Width CV 15.5 % (11.6-14.6); RBC Distribution Width SD 48.2 fl (35.1-43.9); Red Blood Count 3.73 M/mm3 (4.2-5.4); White Blood Count 9.2 K/mm3 (4.4-11.0)
[2024-05-04 05:42] LABS: Anion Gap 6 (5-15); BUN 29 mg/dL (7-18); BUN/Creat Ratio 19.6 RATIO (10-20); Calcium,Total 8.8 mg/dL (8.5-10.1); Chloride 99 mmol/L (98-107); Creatinine, Serum 1.48 mg/dL (0.55-1.02); EST Glomerular Filtration Rate 36 mL/min (>60); Est Glom Filt Rate - Afr Amer 44 mL/min (>60); Estimated Creatinine Clearance 32.53 ml/min; Glucose 164 mg/dL (74-106); Potassium 3.8 mmol/L (3.5-5.1); Sodium Level 133 mmol/L (136-145)
[2024-05-04] MEDS: Levothyroxine 88 MCG Tablet 44 MCG PO (05:48)
[2024-05-04] MEDS: Acetaminophen 500 MG Tablet 1000 MG PO ×3 (05:48→21:26)
[2024-05-04 06:49] LABS: Bedside Glucose 150 mg/dL (74-106)
[2024-05-04] MEDS: metFORMIN (XR) 500 MG Tablet PO ×2 (09:33→17:22)
[2024-05-04] MEDS: Aspirin E.C. 81 MG Tablet PO ×2 (09:33→17:21)
[2024-05-04] MEDS: Pantoprazole Sodium 40 MG Tablet PO (09:33)
[2024-05-04] MEDS: Cyanocobalamin 500 MCG Tablet PO (09:34)
[2024-05-04] MEDS: Loratadine 10 MG Tablet PO (09:34)
[2024-05-04] MEDS: Nystatin Powder 15gm Bottle 1 APPLIC TOPICAL ×2 (09:34→21:26)
[2024-05-04] MEDS: Losartan Potassium 100 MG Tablet PO (09:35)
[2024-05-04] MEDS: Ibuprofen 200 MG Tablet PO ×2 (09:35→21:26)
[2024-05-04] MEDS: Ezetimibe 10 MG Tablet PO (09:40)
[2024-05-04] MEDS: Clopidogrel Bisulfate 75 MG Tablet PO (09:40)
[2024-05-04] MEDS: Glucerna Shake 120 ML LIQUID PO ×2 (09:47→17:21)
[2024-05-04] MEDS: Insulin Lispro 100 UNIT/ML INSULN.PEN 14 UNIT SC ×3 (09:49→17:27)
[2024-05-04] MEDS: Tuberculin,Purif.prot.deriv. 50 TU/ML Vial 0.1 ML ID (10:37)
[2024-05-04 10:45] VITALS: BP 123/49; PULSE 69
[2024-05-04] MEDS: Metoprolol Tartrate 25 MG Tablet 75 MG PO ×2 (10:45→21:25)
[2024-05-04 12:22] LABS: Bedside Glucose 279 mg/dL (74-106)
[2024-05-04 16:00] VITALS: BP 110/45; PULSE 61; RESP 16; TEMP 37; O2SAT 94
[2024-05-04 17:05] LABS: Bedside Glucose 125 mg/dL (74-106)
[2024-05-04 21:25] VITALS: BP 120/63; PULSE 77
[2024-05-04] MEDS: Montelukast 10 MG Tablet PO (21:26)
[2024-05-04 21:33] VITALS: BP 120/63; PULSE 77
[2024-05-04 21:40] VITALS: PULSE 77; RESP 16
--- NOTE | 2024-05-04 21:45 | NURSING ---
Patient's HS blood glucose level is 76. Dr. Quispe notified via telephone. Hold insulin glargine per Dr. Quispe.
[2024-05-04 21:52] LABS: Bedside Glucose 76 mg/dL (74-106)
[2024-05-05] MEDS: Levothyroxine 88 MCG Tablet PO (05:31)
[2024-05-05] MEDS: Acetaminophen 500 MG Tablet 1000 MG PO ×3 (05:31→23:19)
[2024-05-05 06:37] LABS: Bedside Glucose 143 mg/dL (74-106)
[2024-05-05] MEDS: Cyanocobalamin 500 MCG Tablet PO (08:13)
[2024-05-05] MEDS: Aspirin E.C. 81 MG Tablet PO ×2 (08:13→18:04)
[2024-05-05] MEDS: metFORMIN (XR) 500 MG Tablet PO ×2 (08:13→18:04)
[2024-05-05] MEDS: Glucerna Shake 120 ML LIQUID PO ×3 (08:13→18:05)
[2024-05-05] MEDS: Magnesium Citrate 300 ML PO (08:14)
[2024-05-05] MEDS: Insulin Lispro 100 UNIT/ML INSULN.PEN 14 UNIT SC ×3 (08:15→18:00)
[2024-05-05] MEDS: Ibuprofen 200 MG Tablet PO ×2 (09:26→23:17)
[2024-05-05] MEDS: Losartan Potassium 100 MG Tablet PO (09:26)
[2024-05-05] MEDS: Loratadine 10 MG Tablet PO (09:26)
[2024-05-05 09:27] VITALS: BP 121/54; PULSE 76
[2024-05-05] MEDS: Ezetimibe 10 MG Tablet PO (09:27)
[2024-05-05] MEDS: Pantoprazole Sodium 40 MG Tablet PO (09:27)
[2024-05-05] MEDS: Clopidogrel Bisulfate 75 MG Tablet PO (09:27)
[2024-05-05] MEDS: Metoprolol Tartrate 25 MG Tablet 75 MG PO ×2 (09:27→23:18)
[2024-05-05] MEDS: Nystatin Powder 15gm Bottle 1 APPLIC TOPICAL ×2 (09:28→22:32)
[2024-05-05 09:51] VITALS: PULSE 76; RESP 16; O2SAT 94
[2024-05-05 11:29] LABS: Bedside Glucose 209 mg/dL (74-106)
[2024-05-05 11:40] VITALS: BP 121/54; PULSE 76; RESP 16; TEMP 36.9; O2SAT 94
--- NOTE | 2024-05-05 13:19 | PCM.PN.DRR ---
Documented by User: Jose Manuel Yost 05/05/24 13:35 TCU RX Drug Regimen Review Subjective/Objective Subjective/Objective: Subjective: TCU admission note. TCU 17 is a 79 yof who was initially admitted to [facility] for a right total hip arthroplasty on 05/01/24. She was then admitted to [facility] TCU on 05/02/24 with debility for strengthening and rehabilitation prior to discharge home with her . Objective: Allergies Sulfa (Sulfonamide Antibiotics) Allergy (Verified 03/28/24 10:23) PT UNSURE OF REACTION ticagrelor (From Brilinta) Allergy (Verified 03/28/24 10:23) Shortness of breath atorvastatin Adverse Reaction (Severe, Verified 03/28/24 10:23) Myalgias isosorbide Adverse Reaction (Severe, Verified 03/28/24 10:23) Severe headaches & nausea lovastatin Adverse Reaction (Severe, Verified 03/28/24 10:23) Severe Myalgias simvastatin Adverse Reaction (Severe, Verified 03/28/24 10:23) Myalgias lactose Adverse Reaction (Verified 03/28/24 10:23) Nausea nitroglycerin Adverse Reaction (Verified 03/28/24 10:23) LOW BP Sdeowxg-GYF-WzF Reductase Inhibitor (Xfforvv-Lsr-Kww Reductase Inhibitor) Adverse Reaction (Verified 03/28/24 10:23) Pain in joints Current Medications Generic Name Dose Route Start Last Admin Trade Name Freq PRN Reason Stop Dose Admin Acetaminophen 1,000 mg 05/03/24 15:00 05/05/24 05:31 Acetaminophen 500 Mg Tablet PO 1,000 mg Q8 ARCHANA Administration Albuterol Sulfate 1 puff 05/03/24 12:32 Albuterol Ih (6.7 Gm) 1 Puff Inhaler INHALATION Q4H PRN shortness of breath or wheezing Aspirin 81 mg 05/03/24 17:00 05/05/24 08:13 Aspirin E.C. 81 Mg Tablet PO 06/02/24 17:01 81 mg BIDCM ARCHANA Administration Bisacodyl 10 mg 05/03/24 11:55 Bisacodyl 10 Mg Suppository RC DAILY PRN PRN Constipation Clopidogrel Bisulfate 75 mg 05/04/24 10:00 05/05/24 09:27 Clopidogrel Bisulfate 75 Mg Tablet PO 75 mg DAILY ARCHANA Administration Colchicine 0.6 mg 05/03/24 14:49 Colchicine 0.6 Mg Tablet PO DAILY PRN gout Cyanocobalamin 500 mcg 05/04/24 08:00 05/05/24 08:13 Cyanocobalamin 500 Mcg Tablet PO 500 mcg DAILYCM [facility] Administration Ezetimibe 10 mg 05/04/24 10:00 05/05/24 09:27 Ezetimibe 10 Mg Tablet PO 10 mg DAILY [facility] Administration Glycerin/Hypromellose/Polyethylene 1 drp 05/03/24 13:25 Glycerin/Hypromellose/[id number] 15 Ml Bottle EACH EYE DAILY PRN dry eyes Ibuprofen 200 mg 05/03/24 22:00 05/05/24 09:26 Ibuprofen 200 Mg Tablet PO 200 mg BID [facility] Administration Insulin Glargine 40 unit 05/03/24 22:00 05/04/24 21:44 Insulin Glargine-Yfgn 100 Unit/Ml Pen SC Not Given QHS [facility] Insulin Human Lispro 14 unit 05/03/24 16:45 05/05/24 12:09 Insulin Lispro 100 Unit/Ml Insuln.Pen SC 14 units TIDAC [facility] Administration Levothyroxine Sodium 44 mcg 05/04/24 06:00 05/04/24 05:48 Levothyroxine 88 Mcg Tablet PO 44 mcg [id number] [facility] Administration Levothyroxine Sodium 88 mcg 05/05/24 06:00 05/05/24 05:31 Levothyroxine 88 Mcg Tablet PO 88 mcg [id number] [facility] Administration Loratadine 10 mg 05/04/24 10:00 05/05/24 09:26 Loratadine 10 Mg Tablet PO 10 mg DAILY [facility] Administration Losartan Potassium 100 mg 05/04/24 10:00 05/05/24 09:26 Losartan Potassium 100 Mg Tablet PO 100 mg DAILY [facility] Administration Protocol Magnesium Citrate 300 ml 05/03/24 11:55 Magnesium Citrate 300 Ml PO X1 PRN Constipation Magnesium Hydroxide 30 ml 05/03/24 11:55 Magnesium Hydroxide 30 Ml Udc PO DAILY PRN PRN Constipation Metformin HCl 500 mg 05/03/24 17:00 05/05/24 08:13 Met[facility] (Xr) 500 [facility] Metoprolol Tartrate 75 mg 05/03/24 22:00 05/05/24 09:27 Metoprolol Tartrate 25 Mg Tablet PO 75 mg BID [facility] Administration Protocol Montelukast Sodium 10 mg 05/03/24 22:00 05/04/24 21:26 Montelukast 10 Mg Tablet PO 10 mg QHS [facility] Administration Nutritional Formula (Lactose Free) 120 ml 05/03/24 18:02 05/05/24 12:08 Glucerna Shake 120 Ml Liquid PO 120 ml TIDCM ARCHANA Administration Nystatin 1 applic 05/03/24 22:00 05/05/24 09:28 Nystatin Powder 15gm Bottle TOPICAL 1 applic BID [facility] Administration Protocol Oxycodone HCl 5 mg 05/03/24 14:51 Oxycodone 5 Mg Tablet PO Q4H PRN PRN Pain Score 6-10 or Pre PT/OT Pantoprazole Sodium 40 mg 05/04/24 10:00 05/05/24 09:27 Pantoprazole Sodium 40 Mg Tablet PO 40 mg DAILY [facility] Administration Polyethylene Glycol 17 gm 05/03/24 12:30 Polyethylene Glycol 3350 17 Gm Packet PO DAILY PRN constipation Prochlorperazine Maleate 10 mg 05/03/24 16:09 Prochlorperazine 5 Mg Tablet PO Q6H PRN PRN NAUSEA/VOMITING Sodium Chloride 10 - 40 ml 05/03/24 11:25 0.9% Saline Lock 10 Ml Syringe IV UD PRN SALINE FLUSH Tramadol HCl 50 mg 05/03/24 14:51 Tramadol 50 Mg Tablet PO Q6H PRN Pain Score 1-5 or Pre PT/OT Tuberculin PPD 0.1 ml 05/11/24 10:00 Tuberculin,Purif.Prot.Deriv. 50 Tu/Ml Vial ID 05/11/24 10:01 X1 ONE Problem List Allergic rhinitis (Acute) Essential (primary) hypertension (Acute) Type 2 diabetes mellitus with hyperglycemia (Acute) B12 deficiency (Acute) Hypothyroidism (Acute) Obstructive sleep apnea (Acute) Coronary artery disease (Acute) Dysphagia (Acute) Hyperkalemia (Acute) Status post total hip replacement, right (Acute) Debility (Acute) Gout (Acute) GERD (gastroesophageal reflux disease) (Acute) Hyperlipemia (Chronic) Vital Signs Temp Pulse Resp BP Pulse Ox O2 Del Method 98.4 F 76 16 121/54 H 94 Room Air 05/05/24 11:40 05/05/24 11:40 05/05/24 11:40 05/05/24 11:40 05/05/24 11:40 05/05/24 11:40 Oxygen Delivery Method Room Air Weight: 78.925 kg Body Mass Index (BMI) 28.9 Sodium 133 mmol/L (136-145) L 05/04/24 05:13 Potassium 3.8 mmol/L (3.5-5.1) 05/04/24 05:13 Chloride 99 mmol/L (98-107) 05/04/24 05:13 Carbon Dioxide 28.0 mmol/L (21.0-32.0) 05/04/24 05:13 Anion Gap 6 (5-15) 05/04/24 05:13 BUN 29 mg/dL (7-18) H 05/04/24 05:13 Creatinine 1.48 mg/dL (0.55-1.02) H 05/04/24 05:13 Est GFR (MDRD) Af Amer 44 mL/min (>60) L 05/04/24 05:13 Est GFR (MDRD) Non-Af 36 mL/min (>60) L 05/04/24 05:13 BUN/Creatinine Ratio 19.6 RATIO (10-20) 05/04/24 05:13 Glucose 164 mg/dL (74-106) H 05/04/24 05:13 Assessment/Plan: 1. Acetaminophen 100mg PO Q8H, Ibuprofen 200mg PO BID, Tramadol 50mg PO Q6H PRN for pain scores 1 to 5, Oxycodone 5mg PO Q4H PRN for pain scores 6 to 10. Please continue to monitor liver function (last WNL on 12/19/23), kidney function (last CrCl 33ml/min on 05/04/24), for dark and tarry/bloody stools, bleeding/bruising, Hg (last 10.0 g/dL on 05/04/24), Hct (last 31.8% on 05/04/24), for falls and oversedation, for increasing/decreasing pain scores (last pain free on 05/03/24), and for increasing/decreasing PRN medication use (No oxycodone or tramadol have been administered yet). 2. Bowel - Senna/docusate 17.2/100mg PO BID, Bisacodyl 10mg SC daily PRN, [id number] 17g PO daily PRN, Mag cit 300ml PO daily PRN. Please continue to monitor for increasing/decreasing constipation/diarrhea (no BM yet documented), and increasing/decreasing PRN medication use (No mag cit, bisacodyl, or [id number] have been administered yet). 3. DVT Prophylaxis - Aspirin 81mg PO BID with meals through 05/23/24. Please continue to monitor for S&S of DVT, bleeding/bruising, Hgb (last 10.0 g/dL on 05/04/24), Hct (last 31.8% on 05/04/24) and for dark and tarry/bloody stools. 4. Asthma - Montelukast 10mg PO daily, Loratadine PO 10mg daily, Albuterol 90mcg puffs PO Q4H PRN for shortness of breathing/wheezing. Please continue to monitor respiratory rate (last 16BMP on 05/04/24), O2 saturation (last 94% on 05/04/24), renal function (last CrCl 33ml/min on 05/04/24), for increasing/decreasing SOB/wheezing, and for increasing/decreasing PRN medication use (No albuterol has been administered yet). 5. CAD - Metoprolol tartrate 75mg PO BID, Losartan 100mg PO daily, Clopidogrel 75mg PO daily. Please continue to monitor for for dark and tarry/bloody stools, bleeding/bruising, Hgb (last 10.0 g/dL on 05/04/24), Hct (last 31.8% on 05/04/24) heart rate (last 76BPM on 05/05/24), BP (last 121/54mmHg on 05/05/24), renal function (last CrCl 33ml/min on 05/04/24), serum potassium (3.8 mmol/L on 05/04/24). 6. HLD - Ezetimibe 10mg - Please continue to monitor lipid panel (last Tg 271mg/dL, TC 201mg/dL, LDL 118mg/dL, HDL 41mg/dL on 12/19/23), and liver function (last WNL on 12/19/23) 7. T2DM - Metformin XR 500mg PO BID with meals, Glargine 40 unit SubQ QHS, Lispro 14 units SubQ before meals. Please continue to monitor renal function (last eGFR 36ml/min on 05/04/24), blood sugar (last 164mg/dL on 05/04/24), B12 (last 1745pg/mL), A1C (last A1C not on file), for S&S of hypoglycemia. Please consider obtaining an updated serum A1C for monitoring of diabetes treatment if clinically appropriate. 8. B12 deficiency - B12 500mcg PO daily. Pleasure continue to monitor serum B12 (last 1745pg/mL). 9. Hypothyroidism - Levothyroxine 44mcg PO on Sunday, Levothyroxine 88mcg PO on ////. Please continue to monitor thyroid function (last TSH 0.55mIU/L on 12/19/23) and for S&S of sub/supratherapeutic treatment. 10. GERD - Pantoprazole 40mg PO daily - Please continue to monitor for increasing/decreasing acid reflux, serum magnesium (last 1.6mg/dL on 03/17/18). Please consider obtaining an updated serum magnesium level due to the risk for hypomagnesemia with chcf PPI therapy if clinically appropriate, as the last level is from 03/17/18. 11. Gout - Colchicine 0.6mg PO daily PRN. Please continue to monitor for renal function (last CrCl 33ml/min on 05/04/24), WBCs (last 9.2 K/mm3), S&S of gout/joint pain, and increasing/decreasing PRN medication use (No colchicine has been administered yet). 12. Nausea/vomiting - Prochlorperazine 10mg PO Q6H PRN. Please continue to monitor for increasing/decreasing N/V and increasing/decreasing PRN medication use (no prochlorperazine has been administered yet). 13. Tinea corporis - nystatin powder 1 application topically BID. Please continue to monitor for resolution of tinea corporis. 13. Dry eyes - artificial tears 1 drop in each eye daily PRN dry eyes. Please continue to monitor for dry eyes. 14. Nutrition - glucerna 120 mL PO TID with meals. Please continue to monitor overall nutritional status. Assessment/Plan for indications treated with psychotropic medications: NA Medical chart and medication regimen reviewed. The following medication irregularities or issues were identified: 1. GERD - Pantoprazole 40mg PO daily - Please continue to monitor for increasing/decreasing acid reflux, serum magnesium (last 1.6mg/dL on 03/17/18). Please consider obtaining an updated serum magnesium level due to the risk for hypomagnesemia with manager long term care PPI therapy if clinically appropriate, as the last level is from 03/17/18. 2. T2DM - Metformin XR 500mg PO BID with meals, Glargine 40 unit SubQ QHS, Lispro 14 units SubQ before meals. Please consider obtaining an updated serum A1C for monitoring of diabetes treatment if clinically appropriate. Date Date of Note:: 05/05/24 Documented by User: Dr. Mahendra Quispe MD 05/05/24 15:19 TCU RX Drug Regimen Review Provider Comments Provider responsibility Provider Comments to Recommendations by Pharmacy: Agree
--- NOTE | 2024-05-05 14:55 | NURSING ---
Electrical Helper Note; Activity Asset: Joie Valladares is independent in her choice of daily activities. She has stated she prefers to rest at this time however would enjoy social visits from the mat worker and staff(no therapy dog please). Staff will encourage social activities, remind her of weekly activities and respect her right to say no.
--- NOTE | 2024-05-05 15:22 | CASEMGMT ---
Social Work Multiple attempts to complete assessment with pt, but pt unavailable. Will continue to attempt. Dacia Curtis, PYROTECHNICIAN ADMITTING SUPERVISOR
--- NOTE | 2024-05-05 15:45 | CHAPLAIN ---
Type of Pastoral Visit _x__ Initial Visit ___ Follow-up Visit ___ On-call Visit ___ General Patient Visit ___ Spiritual Assessment ___ Family Conference ___ Bereavement ___ Rapid Response ___ Code Blue ___ Other (describe below) Pastoral Care Referral From _x__ Patient ___ Family ___ Nurse ___ Physician ___ Monument Letterer ___ Welfare Worker ___ Other (describe below) Sacrament/Intervention _x__ Active listening ___ Anointing ___ Episcopalian ___ Bereavement ___ Communion _x__ Alisha exploration ___ _x__ Life review _x__ Prayer ___ Reconciliation ___ Sacrament of Sick ___ Supportive presence ___ Wedding ___ Other (describe below) Pastoral Comments patient was on the phone but her spouse was in the room; spouse was talkative and welcoming of support; spouse expresses his desire to have pt get well quickly and come home as I need her; patient comes off the phone and expresses her own concerns of slow recovery process; both speak of their episcopalian affiliation; pt acknowledges that she needs the support given here and yet wants to get more rest; spouse is concerned that pt is not eating enough; both welcome prayer
[2024-05-05 16:38] LABS: Bedside Glucose 205 mg/dL (74-106)
[2024-05-05 22:47] LABS: Bedside Glucose 158 mg/dL (74-106)
[2024-05-05 23:18] VITALS: BP 139/52; PULSE 74
[2024-05-05] MEDS: Insulin Glargine-YFGN 100 UNIT/ML Pen 40 UNIT SC (23:20)
[2024-05-05] MEDS: Montelukast 10 MG Tablet PO (23:22)
[2024-05-06 06:14] LABS: Bedside Glucose 191 mg/dL (74-106)
[2024-05-06 06:30] LABS: Magnesium 2.6 mg/dL (1.6-2.6)
[2024-05-06] MEDS: Acetaminophen 500 MG Tablet 1000 MG PO ×3 (06:39→23:00)
[2024-05-06] MEDS: Levothyroxine 88 MCG Tablet PO (06:40)
[2024-05-06] MEDS: Insulin Lispro 100 UNIT/ML INSULN.PEN 14 UNIT SC ×2 (08:08→12:02)
[2024-05-06] MEDS: Ibuprofen 200 MG Tablet PO ×2 (08:08→23:01)
[2024-05-06] MEDS: metFORMIN (XR) 500 MG Tablet PO ×2 (08:08→17:38)
[2024-05-06] MEDS: Aspirin E.C. 81 MG Tablet PO ×2 (08:08→17:38)
[2024-05-06] MEDS: Clopidogrel Bisulfate 75 MG Tablet PO (08:08)
[2024-05-06] MEDS: Glucerna Shake 120 ML LIQUID PO ×3 (08:08→17:40)
[2024-05-06 08:09] VITALS: BP 155/67; PULSE 62
[2024-05-06] MEDS: Loratadine 10 MG Tablet PO (08:09)
[2024-05-06] MEDS: Ezetimibe 10 MG Tablet PO (08:09)
[2024-05-06] MEDS: Losartan Potassium 100 MG Tablet PO (08:09)
[2024-05-06] MEDS: Metoprolol Tartrate 25 MG Tablet 75 MG PO ×2 (08:09→23:00)
[2024-05-06] MEDS: Pantoprazole Sodium 40 MG Tablet PO (08:09)
[2024-05-06] MEDS: Nystatin Powder 15gm Bottle 1 APPLIC TOPICAL ×2 (08:10→22:59)
[2024-05-06] MEDS: Cyanocobalamin 500 MCG Tablet PO (08:10)
[2024-05-06 10:46] VITALS: BMI 28.3
[2024-05-06 11:37] LABS: Bedside Glucose 291 mg/dL (74-106)
[2024-05-06 16:00] VITALS: BP 134/61; PULSE 60; RESP 14; TEMP 36.3; O2SAT 98
[2024-05-06 16:58] LABS: Bedside Glucose 71 mg/dL (74-106)
--- NOTE | 2024-05-06 17:09 | NURSING ---
Pt Blood Sugar 71 Marion Juice given.
--- NOTE | 2024-05-06 17:46 | CASEMGMT ---
Social Work SW met with patient to complete initial assessment. Introduced self and role. Pt's son and present and granted permission to complete assessment. Verified/updated contacts. Pt confirmed code status as full code. SW requested family provide copy of HCPOA, and pt wishes to complete LW. SW to complete prior to DC. Educated to [facility] insurance with NRD 05/13, EDC 05/16. Pt's goal is to return home with at [facility]. SW will continue to follow for DC planning/ JERRY Bonilla
[2024-05-06 21:34] LABS: Bedside Glucose 211 mg/dL (74-106)
[2024-05-06 23:00] VITALS: BP 141/63; PULSE 74
[2024-05-06] MEDS: Montelukast 10 MG Tablet PO (23:01)
[2024-05-06] MEDS: Insulin Glargine-YFGN 100 UNIT/ML Pen 40 UNIT SC (23:02)
[2024-05-07] MEDS: Acetaminophen 500 MG Tablet 1000 MG PO ×3 (06:44→21:46)
[2024-05-07] MEDS: Levothyroxine 88 MCG Tablet PO (06:44)
[2024-05-07 06:47] LABS: Bedside Glucose 146 mg/dL (74-106)
[2024-05-07 08:11] VITALS: BP 147/63; PULSE 71
[2024-05-07] MEDS: Aspirin E.C. 81 MG Tablet PO ×2 (08:11→17:38)
[2024-05-07] MEDS: metFORMIN (XR) 500 MG Tablet PO ×2 (08:11→17:38)
[2024-05-07] MEDS: Losartan Potassium 100 MG Tablet PO (08:11)
[2024-05-07] MEDS: Loratadine 10 MG Tablet PO (08:11)
[2024-05-07] MEDS: Metoprolol Tartrate 25 MG Tablet 75 MG PO ×2 (08:11→21:46)
[2024-05-07] MEDS: Cyanocobalamin 500 MCG Tablet PO (08:11)
[2024-05-07] MEDS: Ezetimibe 10 MG Tablet PO (08:11)
[2024-05-07] MEDS: Pantoprazole Sodium 40 MG Tablet PO (08:11)
[2024-05-07] MEDS: Insulin Lispro 100 UNIT/ML INSULN.PEN 14 UNIT SC ×3 (08:12→17:38)
[2024-05-07] MEDS: Glucerna Shake 120 ML LIQUID PO ×3 (08:12→17:44)
[2024-05-07] MEDS: Nystatin Powder 15gm Bottle 1 APPLIC TOPICAL ×2 (08:13→21:48)
[2024-05-07] MEDS: Clopidogrel Bisulfate 75 MG Tablet PO (08:13)
[2024-05-07] MEDS: Ibuprofen 200 MG Tablet PO ×2 (08:13→21:46)
--- NOTE | 2024-05-07 09:15 | NURSING ---
Pt left for Ortho appt daughter transporting.
--- NOTE | 2024-05-07 09:55 | NURSING ---
Pt updated on positive covid pt. Per pt will update daughter.
--- NOTE | 2024-05-07 10:31 | NURSING ---
Pt and family updated on positive covid pt.
--- NOTE | 2024-05-07 10:32 | CASEMGMT ---
Social Work IDT met with patient, , son and dtr for care plan meeting. Discussed patient's progress in PT/OT/SN. Educated to [facility] insurance with NRD 05/13, EDC 05/16. Provided pt/family written communication on insurance process and copay coverage during stay. Pt's goal is to return home with , however, cannot provide physical assistance. SW reminded family to provide copies of pt's advanced directives. SW to assist pt with needs at [place]. Will continue to follow. Dacia Curtis, PRINCIPAL TECHNICAL WRITER PROCESS MANUFACTURING ENGINEER
[2024-05-07 11:50] LABS: Bedside Glucose 346 mg/dL (74-106)
[2024-05-07 14:57] VITALS: BP 100/52; PULSE 75; RESP 14; TEMP 36.9; O2SAT 95
[2024-05-07 16:27] LABS: Bedside Glucose 134 mg/dL (74-106)
[2024-05-07 21:30] VITALS: BP 138/63; PULSE 79; RESP 18; O2SAT 96
[2024-05-07] MEDS: Insulin Glargine-YFGN 100 UNIT/ML Pen 40 UNIT SC (21:45)
[2024-05-07 21:46] VITALS: BP 138/63; PULSE 79
[2024-05-07] MEDS: Montelukast 10 MG Tablet PO (21:46)
[2024-05-07 22:42] LABS: Bedside Glucose 114 mg/dL (74-106)
[2024-05-08] MEDS: Levothyroxine 88 MCG Tablet PO (06:22)
[2024-05-08] MEDS: Acetaminophen 500 MG Tablet 1000 MG PO ×3 (06:23→22:08)
[2024-05-08 06:41] LABS: Bedside Glucose 127 mg/dL (74-106)
[2024-05-08] MEDS: Glucerna Shake 120 ML LIQUID PO ×3 (08:19→17:59)
[2024-05-08] MEDS: metFORMIN (XR) 500 MG Tablet PO ×2 (08:20→18:00)
[2024-05-08] MEDS: Insulin Lispro 100 UNIT/ML INSULN.PEN 14 UNIT SC ×3 (08:20→18:00)
[2024-05-08] MEDS: Aspirin E.C. 81 MG Tablet PO ×2 (08:20→17:59)
[2024-05-08] MEDS: Cyanocobalamin 500 MCG Tablet PO (08:21)
[2024-05-08] MEDS: Ibuprofen 200 MG Tablet PO ×2 (08:21→22:07)
[2024-05-08] MEDS: Clopidogrel Bisulfate 75 MG Tablet PO (08:21)
[2024-05-08] MEDS: Loratadine 10 MG Tablet PO (08:21)
[2024-05-08] MEDS: Losartan Potassium 100 MG Tablet PO (08:21)
[2024-05-08] MEDS: Ezetimibe 10 MG Tablet PO (08:22)
[2024-05-08] MEDS: Pantoprazole Sodium 40 MG Tablet PO (08:22)
[2024-05-08 08:24] VITALS: BP 143/59; PULSE 59
[2024-05-08] MEDS: Metoprolol Tartrate 25 MG Tablet 75 MG PO ×2 (08:24→22:07)
[2024-05-08] MEDS: Nystatin Powder 15gm Bottle 1 APPLIC TOPICAL ×2 (08:26→22:08)
--- NOTE | 2024-05-08 13:17 | MDS.RN ---
Pain interview for MDS completed.
[2024-05-08 14:34] LABS: Bedside Glucose 300 mg/dL (74-106)
[2024-05-08 16:00] VITALS: BP 127/59; PULSE 66; RESP 16; TEMP 37.3
--- NOTE | 2024-05-08 16:25 | CASEMGMT ---
BIMS () and PHQ9 () interviews completed on this date for MDS assessment. DALLAS Colunga
[2024-05-08 17:40] LABS: Bedside Glucose 84 mg/dL (74-106)
[2024-05-08 18:23] LABS: Bedside Glucose 84 mg/dL (74-106)
[2024-05-08 20:15] VITALS: PULSE 83; O2SAT 93
[2024-05-08 21:22] LABS: Bedside Glucose 96 mg/dL (74-106)
[2024-05-08 22:07] VITALS: BP 134/56; PULSE 83
[2024-05-08] MEDS: Insulin Glargine-YFGN 100 UNIT/ML Pen 40 UNIT SC (22:07)
[2024-05-08] MEDS: Montelukast 10 MG Tablet PO (22:07)
[2024-05-09] MEDS: Acetaminophen 500 MG Tablet 1000 MG PO ×3 (06:28→22:29)
[2024-05-09] MEDS: Levothyroxine 88 MCG Tablet PO (06:28)
[2024-05-09 06:45] LABS: Bedside Glucose 145 mg/dL (74-106)
[2024-05-09] MEDS: Aspirin E.C. 81 MG Tablet PO ×2 (08:26→18:13)
[2024-05-09] MEDS: metFORMIN (XR) 500 MG Tablet PO ×2 (08:26→18:13)
[2024-05-09 08:27] VITALS: BP 131/53; PULSE 85
[2024-05-09] MEDS: Cyanocobalamin 500 MCG Tablet PO (08:27)
[2024-05-09] MEDS: Metoprolol Tartrate 25 MG Tablet 75 MG PO ×2 (08:27→22:29)
[2024-05-09] MEDS: Loratadine 10 MG Tablet PO (08:28)
[2024-05-09] MEDS: Losartan Potassium 100 MG Tablet PO (08:28)
[2024-05-09] MEDS: Insulin Lispro 100 UNIT/ML INSULN.PEN 14 UNIT SC ×3 (08:28→18:14)
[2024-05-09] MEDS: Ibuprofen 200 MG Tablet PO ×2 (08:29→22:30)
[2024-05-09] MEDS: Pantoprazole Sodium 40 MG Tablet PO (08:30)
[2024-05-09] MEDS: Clopidogrel Bisulfate 75 MG Tablet PO (08:30)
[2024-05-09] MEDS: Ezetimibe 10 MG Tablet PO (08:31)
[2024-05-09] MEDS: Glucerna Shake 120 ML LIQUID PO ×2 (08:35→12:36)
[2024-05-09] MEDS: Nystatin Powder 15gm Bottle 1 APPLIC TOPICAL ×2 (08:37→22:31)
[2024-05-09 12:03] LABS: Bedside Glucose 178 mg/dL (74-106)
[2024-05-09 16:00] VITALS: BP 131/53; PULSE 85; RESP 16; TEMP 36.3; O2SAT 98
[2024-05-09 16:46] LABS: Bedside Glucose 116 mg/dL (74-106)
[2024-05-09 20:24] VITALS: PULSE 79; RESP 16
[2024-05-09 21:37] LABS: Bedside Glucose 54 mg/dL (74-106)
--- NOTE | 2024-05-09 22:00 | NURSING ---
Patient's HS blood sugar 54. Patient given orange juice, chuck doons. Blood sugar rechecked 30 minutes later, it was 61. Dr. Quispe notified. New orders received to hold Glargine tonight. Adjust Glargine to 20U qhs, Humalog to 5U tid ac. Patient notified of new orders. Verbalized understanding. Will continue to monitor.
[2024-05-09 22:08] LABS: Bedside Glucose 61 mg/dL (74-106)
[2024-05-09 22:29] VITALS: BP 113/51; PULSE 79
[2024-05-09] MEDS: Montelukast 10 MG Tablet PO (22:30)
[2024-05-09 22:31] LABS: Bedside Glucose 95 mg/dL (74-106)
--- NOTE | 2024-05-09 22:36 | NURSING ---
Blood sugar up to 95 at this time. Will continue to monitor.
[2024-05-10] MEDS: Acetaminophen 500 MG Tablet 1000 MG PO ×3 (06:16→22:41)
[2024-05-10] MEDS: Levothyroxine 88 MCG Tablet PO (06:17)
[2024-05-10 06:50] LABS: Bedside Glucose 168 mg/dL (74-106)
[2024-05-10] MEDS: Insulin Lispro 100 UNIT/ML INSULN.PEN SC ×4 (08:31→18:03)
[2024-05-10 08:32] VITALS: BP 137/57; PULSE 69
[2024-05-10] MEDS: metFORMIN (XR) 500 MG Tablet PO ×2 (08:32→18:03)
[2024-05-10] MEDS: Ezetimibe 10 MG Tablet PO (08:32)
[2024-05-10] MEDS: Metoprolol Tartrate 25 MG Tablet 75 MG PO ×2 (08:32→22:40)
[2024-05-10] MEDS: Losartan Potassium 100 MG Tablet PO (08:32)
[2024-05-10] MEDS: Pantoprazole Sodium 40 MG Tablet PO (08:32)
[2024-05-10] MEDS: Cyanocobalamin 500 MCG Tablet PO (08:32)
[2024-05-10] MEDS: Aspirin E.C. 81 MG Tablet PO ×2 (08:32→18:03)
[2024-05-10] MEDS: Loratadine 10 MG Tablet PO (08:33)
[2024-05-10] MEDS: Clopidogrel Bisulfate 75 MG Tablet PO (08:33)
[2024-05-10] MEDS: Nystatin Powder 15gm Bottle 1 APPLIC TOPICAL ×2 (08:33→22:38)
[2024-05-10] MEDS: Ibuprofen 200 MG Tablet PO ×2 (08:33→22:41)
[2024-05-10] MEDS: Glucerna Shake 120 ML LIQUID PO ×3 (08:35→18:04)
[2024-05-10 11:18] LABS: Bedside Glucose 305 mg/dL (74-106)
--- NOTE | 2024-05-10 11:20 | NURSING ---
Pt BS 305 Dr. Quispe updated N.O. to give extra 5 units x1 dose. Order read back.
[2024-05-10 13:55] VITALS: BP 110/52; PULSE 82; RESP 16; TEMP 36.6; O2SAT 95
[2024-05-10 16:30] LABS: Bedside Glucose 162 mg/dL (74-106)
[2024-05-10 21:44] LABS: Bedside Glucose 146 mg/dL (74-106)
[2024-05-10 22:40] VITALS: BP 133/68; PULSE 82
[2024-05-10] MEDS: Montelukast 10 MG Tablet PO (22:41)
[2024-05-10] MEDS: Insulin Glargine-YFGN 100 UNIT/ML Pen 20 UNIT SC (22:43)
[2024-05-10 22:53] VITALS: BP 133/68; PULSE 82
[2024-05-11] MEDS: Levothyroxine 88 MCG Tablet 44 MCG PO (05:43)
[2024-05-11] MEDS: Acetaminophen 500 MG Tablet 1000 MG PO ×3 (05:43→22:04)
[2024-05-11 06:43] LABS: Bedside Glucose 171 mg/dL (74-106)
[2024-05-11] MEDS: Losartan Potassium 100 MG Tablet PO (08:00)
[2024-05-11] MEDS: Loratadine 10 MG Tablet PO (08:00)
[2024-05-11] MEDS: Pantoprazole Sodium 40 MG Tablet PO (08:00)
[2024-05-11] MEDS: Aspirin E.C. 81 MG Tablet PO ×2 (08:00→17:51)
[2024-05-11] MEDS: Clopidogrel Bisulfate 75 MG Tablet PO (08:00)
[2024-05-11] MEDS: Ibuprofen 200 MG Tablet PO ×2 (08:00→22:04)
[2024-05-11] MEDS: Ezetimibe 10 MG Tablet PO (08:00)
[2024-05-11] MEDS: Cyanocobalamin 500 MCG Tablet PO (08:00)
[2024-05-11] MEDS: metFORMIN (XR) 500 MG Tablet PO ×2 (08:00→17:51)
[2024-05-11] MEDS: Nystatin Powder 15gm Bottle 1 APPLIC TOPICAL ×2 (08:01→22:04)
[2024-05-11] MEDS: Insulin Lispro 100 UNIT/ML INSULN.PEN SC ×3 (08:01→17:51)
[2024-05-11] MEDS: Glucerna Shake 120 ML LIQUID PO ×3 (08:03→17:49)
[2024-05-11 08:06] VITALS: BP 132/57; PULSE 55
[2024-05-11 10:22] VITALS: BP 121/60; PULSE 72
[2024-05-11] MEDS: Metoprolol Tartrate 25 MG Tablet 75 MG PO ×2 (10:22→22:04)
[2024-05-11] MEDS: Tuberculin,Purif.prot.deriv. 50 TU/ML Vial 0.1 ML ID (10:23)
[2024-05-11 11:16] LABS: Bedside Glucose 253 mg/dL (74-106)
[2024-05-11 13:50] VITALS: BP 119/56; PULSE 69; RESP 16; TEMP 36.2; O2SAT 93
[2024-05-11 16:18] LABS: Bedside Glucose 194 mg/dL (74-106)
[2024-05-11 21:21] LABS: Bedside Glucose 195 mg/dL (74-106)
[2024-05-11 22:04] VITALS: BP 136/59; PULSE 100
[2024-05-11] MEDS: Insulin Glargine-YFGN 100 UNIT/ML Pen 20 UNIT SC (22:05)
[2024-05-11] MEDS: Montelukast 10 MG Tablet PO (22:06)
[2024-05-12] MEDS: Acetaminophen 500 MG Tablet 1000 MG PO ×3 (05:46→21:00)
[2024-05-12] MEDS: Levothyroxine 88 MCG Tablet PO (05:47)
[2024-05-12 06:01] LABS: Absolute Lymphocyte Count 2.56 X10^3/uL (0.83-4.51); Absolute Neutrophil Count 4.6 X10^3/uL (2.0-7.7); Basophil# 0.01 X10^3/uL; Basophil% 0.1 % (0-1); Eosinophils% 2.5 % (0-5); Hematocrit 33.5 % (37-47); Hemoglobin 10.2 g/dL (12.0-15.0); Lymphocyte # 2.56 X10^3/ul (0.83-4.51); Lymphocyte % 32.1 % (19-41); Mean Corp Hgb Conc 30.4 g/dL (32-36); Mean Corpuscular Hgb 26.4 pg (27.0-32.0); Mean Corpuscular Volume 86.6 fL (81-99); Mean Platelet Vol. 9.3 fl (6.2-12.0); Monocyte# 0.59 X10^3/uL; Monocyte% 7.4 % (0-10); NRBC Flagged by Analyzer 0 % (0-5); Neutrophil # 4.56 X10^3/uL (2.7-7.7); Neutrophil % 57.1 % (47-70); Platelet Count 322 K/mm3 (150-450); RBC Distribution Width CV 15.9 % (11.6-14.6); RBC Distribution Width SD 49.7 fl (35.1-43.9); Red Blood Count 3.87 M/mm3 (4.2-5.4)
[2024-05-12 06:17] LABS: Bedside Glucose 166 mg/dL (74-106)
[2024-05-12 06:23] LABS: Anion Gap 7 (5-15); BUN 35 mg/dL (7-18); BUN/Creat Ratio 28.2 RATIO (10-20); Calcium,Total 9.1 mg/dL (8.5-10.1); Chloride 104 mmol/L (98-107); Creatinine, Serum 1.24 mg/dL (0.55-1.02); EST Glomerular Filtration Rate 44 mL/min (>60); Est Glom Filt Rate - Afr Amer 54 mL/min (>60); Glucose 167 mg/dL (74-106); Sodium Level 136 mmol/L (136-145)
[2024-05-12] MEDS: Cyanocobalamin 500 MCG Tablet PO (07:57)
[2024-05-12] MEDS: metFORMIN (XR) 500 MG Tablet PO ×2 (07:57→17:55)
[2024-05-12] MEDS: Aspirin E.C. 81 MG Tablet PO ×2 (07:57→17:49)
[2024-05-12] MEDS: Loratadine 10 MG Tablet PO (07:58)
[2024-05-12] MEDS: Clopidogrel Bisulfate 75 MG Tablet PO (07:58)
[2024-05-12] MEDS: Losartan Potassium 100 MG Tablet PO (07:58)
[2024-05-12] MEDS: Ibuprofen 200 MG Tablet PO ×2 (07:58→21:00)
[2024-05-12] MEDS: Ezetimibe 10 MG Tablet PO (07:59)
[2024-05-12] MEDS: Pantoprazole Sodium 40 MG Tablet PO (07:59)
[2024-05-12] MEDS: Glucerna Shake 120 ML LIQUID PO ×3 (08:04→17:55)
[2024-05-12 08:05] VITALS: BP 132/53; PULSE 59
[2024-05-12] MEDS: Metoprolol Tartrate 25 MG Tablet 75 MG PO ×2 (08:05→21:00)
[2024-05-12] MEDS: Insulin Lispro 100 UNIT/ML INSULN.PEN SC ×3 (08:05→17:49)
[2024-05-12] MEDS: Nystatin Powder 15gm Bottle 1 APPLIC TOPICAL ×2 (08:09→21:00)
--- NOTE | 2024-05-12 08:30 | NURSING ---
Software Architect Note; MDS for 05/10/2024 Complete
[2024-05-12 11:52] LABS: Bedside Glucose 231 mg/dL (74-106)
[2024-05-12 16:00] VITALS: BP 132/53; PULSE 59; RESP 18; TEMP 36.6; O2SAT 98
[2024-05-12 16:21] LABS: Bedside Glucose 278 mg/dL (74-106)
[2024-05-12 20:55] VITALS: BP 128/54; PULSE 62
[2024-05-12 21:00] VITALS: PULSE 62
[2024-05-12] MEDS: Montelukast 10 MG Tablet PO (21:00)
[2024-05-12] MEDS: Insulin Glargine-YFGN 100 UNIT/ML Pen 20 UNIT SC (21:01)
[2024-05-12 21:08] LABS: Bedside Glucose 173 mg/dL (74-106)
[2024-05-13] MEDS: Levothyroxine 88 MCG Tablet PO (06:23)
[2024-05-13] MEDS: Acetaminophen 500 MG Tablet 1000 MG PO ×2 (06:23→22:06)
[2024-05-13 06:30] VITALS: PULSE 72; RESP 16
[2024-05-13 06:40] LABS: Bedside Glucose 172 mg/dL (74-106)
[2024-05-13 07:45] VITALS: BP 141/69; PULSE 77; RESP 16; TEMP 36.4; O2SAT 97
[2024-05-13] MEDS: Insulin Lispro 100 UNIT/ML INSULN.PEN SC ×3 (07:46→17:43)
[2024-05-13] MEDS: Glucerna Shake 120 ML LIQUID PO ×3 (07:47→17:45)
[2024-05-13] MEDS: Aspirin E.C. 81 MG Tablet PO ×2 (07:49→17:43)
[2024-05-13] MEDS: metFORMIN (XR) 500 MG Tablet PO ×2 (07:49→17:43)
[2024-05-13 07:50] VITALS: BP 141/69; PULSE 77
[2024-05-13] MEDS: Metoprolol Tartrate 25 MG Tablet 75 MG PO ×2 (07:50→22:05)
[2024-05-13] MEDS: Losartan Potassium 100 MG Tablet PO (07:50)
[2024-05-13] MEDS: Cyanocobalamin 500 MCG Tablet PO (07:50)
[2024-05-13] MEDS: Loratadine 10 MG Tablet PO (07:50)
[2024-05-13] MEDS: Ibuprofen 200 MG Tablet PO ×2 (07:51→22:05)
[2024-05-13] MEDS: Clopidogrel Bisulfate 75 MG Tablet PO (07:52)
[2024-05-13] MEDS: Ezetimibe 10 MG Tablet PO (07:52)
[2024-05-13] MEDS: Pantoprazole Sodium 40 MG Tablet PO (07:52)
[2024-05-13] MEDS: Nystatin Powder 15gm Bottle 1 APPLIC TOPICAL (07:54)
[2024-05-13 09:07] VITALS: BMI 28.2
--- NOTE | 2024-05-13 11:25 | CASEMGMT ---
Addendum entered by Dacia Curtis 05/13/24 16:21: Pt provided preferences: [facility], John, TASHA SW phoned referral to [facility] HHC. Original Note: Social Work Insurance issued LCD 05/15, DC 05/16. SW spoke with pt and at bedside. Both requesting DC 05/14. IDT agreeable. Offered skilled HHC. Pt agreed but has no preference. Provided printed list of skilled HHC agencies with quality and resource data via [employer]. Pt has no DME needs. to transport at 1100. Plan: DC home with 05/14, HHC PT/OT Dacia Curtis, NURSES' AIDE FRUCTOSE LOADER
[2024-05-13 11:26] LABS: Bedside Glucose 209 mg/dL (74-106)
--- NOTE | 2024-05-13 12:30 | CASEMGMT ---
Social Work BIMS () and PHQ-2 () completed for MDS assessment. Dacia Curtis MSW DITCH DIGGER
--- NOTE | 2024-05-13 16:22 | CASEMGMT ---
Social Work SW completed living will with pt. Original and copy provided to pt. Copies placed on chart. Dacia Curtis, DIAMOND SAW OPERATOR BOILER INSPECTOR
[2024-05-13 16:29] VITALS: BP 114/50; PULSE 82; RESP 17; TEMP 36.9; O2SAT 97
[2024-05-13 17:10] LABS: Bedside Glucose 170 mg/dL (74-106)
--- NOTE | 2024-05-13 21:19 | DS.PCM_ITS ---
Providers Date of Admission: 05/03/24 Primary Care Physician: Dr. Milad Lucas, Reason For Visit: RIGHT TOTAL HIP REPLACEMENT Diagnosis Discharge Diagnosis (1) Debility: Status: Acute Code(s): R53.81 - Other malaise (2) Status post total hip replacement, right: Status: Acute Code(s): Z96.641 - Presence of right artificial hip joint (3) Hyperkalemia: Status: Acute Code(s): E87.5 - Hyperkalemia (4) Dysphagia: Status: Acute Code(s): R13.10 - Dysphagia, unspecified (5) Coronary artery disease: Status: Acute Code(s): I25.10 - Atherosclerotic heart disease of [place] coronary artery without angina pectoris (6) Obstructive sleep apnea: Status: Acute Code(s): G47.33 - Obstructive sleep apnea (adult) (pediatric) (7) Hyperlipemia: Status: Chronic Code(s): E78.5 - Hyperlipidemia, unspecified Qualifiers: Hyperlipidemia type: pure hypercholesterolemia Qualified Code(s): E 78.00 - Pure hypercholesterolemia, unspecified; E78.0 - Pure hypercholesterolemia (8) Hypothyroidism: Status: Acute Code(s): E03.9 - Hypothyroidism, unspecified (9) B12 deficiency: Status: Acute Code(s): E53.8 - Deficiency of other specified B group vitamins (10) Type 2 diabetes mellitus with hyperglycemia: Status: Acute Code(s): E11.65 - Type 2 diabetes mellitus with hyperglycemia (11) Essential (primary) hypertension: Status: Acute Code(s): I10 - Essential (primary) hypertension (12) GERD (gastroesophageal reflux disease): Status: Acute Code(s): K21.9 - Gastro-esophageal reflux disease without esophagitis (13) Gout: Status: Acute Code(s): M10.9 - Gout, unspecified (14) Allergic rhinitis: Status: Acute Code(s): J30.9 - Allergic rhinitis, unspecified Plan 79 year old female with below past medical history hospitalized for right total hip replacement 05/01/[address] Parker, postoperative course complicated by hyperkalemia, dysphagia, admitted to TCU with debility, here for rehabilitation, strengthening, prior to discharge home with . * Debility - PT/OT. * Dysphagia - ST. * Pain - Tylenol 1000mg q8, Tramadol 50mg q6 prn pain (1-5), Oxycodone 5mg q4 prn pain (6-10), Ibuprofen 200mg bid. * Bowel - senna/colace 2 tablets bid, Dulcolax 10mg pr daily prn, Miralax 17gm daily prn, Magnesium citrate 300ml daily prn. * Adult immunization - Administer pneumonia vaccine, covid vaccine, flu vaccine as appropriate. * DVT prophylaxis - Aspirin 81mg bidcm thru 05/23/2024. * Asthma - Singulair 10mg daily, Loratadine 10mg daily, Albuterol 1 puff q4 prn. * Coronary artery disease - Metoprolol 75mg bid, Losartan 100mg daily, Plavix 75mg daily. * Gout - Colchicine 0.6mg daily. * B12 deficiency - B12 500mcg daily. * Hyperlipidemia - Zetia 10mg daily. * Diabetes Mellitus II - Metformin 500mg bidcm, Glargine 40 units qhs, Lispro 14 units tidac. * Hypothyroidism - Levothyroxine 44mcg/88mcg alternating. * Tinea Corporis - Nystatin topical bid. * GERD - Pantoprazole 40gm daily * Dry Eyes - Artificial tears 1gtt ou daily prn. Medications at Discharge Home Medications clopidogrel 75 mg tablet 75 mg PO DAILY blood thinner 07/13/17 ezetimibe 10 mg tablet 10 mg PO DAILY cholesterol 08/22/19 docusate sodium 100 mg capsule 100 mg PO BID Constipation 04/15/21 levothyroxine 88 mcg tablet 88 mcg PO DAILY thyroid 04/15/21 mecobalamin (vitamin B12) 1,000 mcg disintegrating tablet,sublingual 1,000 mcg sublingual DAILY 04/15/21 metformin 500 mg tablet,extended release 24 hr 500 mg PO BID diabetes 04/15/21 losartan 100 mg tablet 100 mg PO DAILY BP 05/10/23 sodium chloride-aloe vera nasal gel ([place] Saline nasal gel) 1 applic topical HS PRN dry nasal passages 05/10/23 albuterol sulfate 90 mcg/actuation aerosol inhaler 1 puff inhalation Q4H PRN shortness of breath or wheezing 12/20/23 montelukast 10 mg tablet 10 mg PO QHS allergies 12/20/23 pantoprazole 40 mg tablet,delayed release 40 mg PO DAILY GERD 12/20/23 cetirizine 10 mg capsule (All Day Allergy (cetirizine)) 10 mg PO DAILY allergies 12/21/23 colchicine 0.6 mg tablet 0.6 mg PO DAILY PRN inflammation 12/21/23 allopurinol 100 mg tablet 200 mg PO DAILY PAIN 03/28/24 metoprolol tartrate 25 mg tablet 75 mg PO BID BLOOD PRESSURE 03/28/24 carboxymethylcellulose sodium 0.5 % eye drops (Refresh Tears) 1 drp EACH EYE DAILY PRN dry eyes 05/03/24 cyanocobalamin (vitamin B-12) 500 mcg tablet 500 mcg PO DAILY Health maintenance 05/03/24 docusate sodium 100 mg capsule 100 mg PO DAILY PRN constipation 05/03/24 ibuprofen 200 mg tablet (Advil) 200 mg PO BID PAIN 05/03/24 acetaminophen 500 mg tablet 1,000 mg (2 x 500 mg) PO Q8 #0 tabs 05/13/24 aspirin 81 mg tablet,delayed release 81 mg PO BIDCM 9 days #0 tabs 05/13/24 insulin glargine-yfgn 100 unit/mL (3 mL) subcutaneous pen 20 unit (0.2 mL) subcut QHS #0 mL 05/13/24 insulin lispro 100 unit/mL subcutaneous pen (Humalog KwikPen (U-100) Insulin) 5 unit (0.05 mL) subcut TIDAC #0 mL 05/13/24 levothyroxine 88 mcg tablet 44 mcg (1/2 x 88 mcg) PO Barnard@0600 #0 tabs 05/13/24 Hospital Course Operations total hip replacement (Right.) Procedures None Summary of Care Provided Minutes Spent on Discharge: 35 Hospital Course: 79 year old female with below past medical history hospitalized for right total hip replacement 05/01/[address] Parker, postoperative course complicated by hyperkalemia, dysphagia, admitted to TCU with debility, here for rehabilitation, strengthening, prior to discharge home with . Discharge home with 05/14/2024, [facility] PT/OT. Physical Exam Const alert General Appearance: cooperative HEENT normocephalic Eyes PERRL and EOMs intact bilaterally Neck supple, no JVD and no carotid bruits Resp normal respiratory effort, normal air movement and clear to auscultation bilaterally Cardio regular rate and regular rhythm GI normal to inspection, nondistended, normoactive bowel sounds, non-tender and non-distended Extremity normal capillary refill General Extremity: Negative for edema Skin no rashes or lesions noted General Skin Exam: no breakdown Psych affect normal Appearance: appropriate Weight / BMI Weight Weight: 77.02 kg Body Mass Index (BMI) 28.2 ABG / Lab / Microbiology Data 05/12/24 05:10 05/12/24 05:10 Laboratory: Laboratory Results - last 24 hr 05/13/24 05:45: POC Glucose 172 H 05/13/24 11:06: POC Glucose 209 H 05/13/24 16:50: POC Glucose 170 H Microbiology: Microbiology 05/08/24 06:25 Nasal Secretion SARS-CoV-2 Antigen (Rapid) - Final D/C Instructions Discharge Diet: No restrictions Discharge Activity: Return to Normal Activity, May Shower and Use Walker Weight Bearing Status: Weight bearing as tolerated Call your doctor if you observe: Fever of 101 or Higher, Inability to urinate, Inability to have a bowel movement, Shortness of breath, Dizziness, Fainting spells, Swelling in the ankles, Chest pain and Uncontrolled pain Additional Instructions: Discharge home with 05/14/2024, [facility] PT/OT. Please Follow Up With: Dedra DANIELS When: As scheduled. Meaningful Use Info Meaningful Use Meaningful Use Diagnoses (Choose all that apply): None applicable Ischemic Stroke Statin Dosing Therapy Reference: STATIN DOSE THERAPY REFERENCE: * Patients > 75 years receive moderate or high dose statin therapy. * Patients 75 years or YOUNGER should receive HIGH intensity statin dose unless contraindicated. You will be required to document reason for non-treatment if statin daily dose does not meet guidelines. HIGH DOSE STATIN THERAPY DAILY Atorvastatin > than or = to 40 mg Rosuvastatin > than or = to 20 mg Amlodipine + Atorvastatin > than or = to 2.5/40 mg Ezetimibe + Simvastatin 10/80 mg Simvastatin 80mg Discharge Plan Admission Admit Date/Time: 05/03/24 11:15 Primary Reason for Your Visit: Debility. Attending Provider: Maehndra Quispe Chi Primary Care Provider: Milad Lucas Instructions Additional Instructions / Restrictions: Discharge home with 05/14/2024, [facility] PT/OT. Discharge Orders/Prescriptions Prescriptions: New aspirin 81 mg Tablet,Delayed Release (Dr/Ec) 81 mg PO BIDCM 9 Days Qty: 0 0RF acetaminophen 500 mg Tablet 1,000 mg PO Q8 Qty: 0 0RF levothyroxine 88 mcg Tablet 44 mcg PO Barnard@0600 Qty: 0 0RF insulin lispro [Humalog KwikPen Insulin] 100 unit/mL Insulin Pen 5 unit subcut TIDAC Qty: 0 0RF insulin glargine-yfgn 100 unit/mL (3 mL) Insulin Pen 20 unit subcut QHS Qty: 0 0RF Continued ezetimibe 10 mg tablet 10 mg PO DAILY mecobalamin (vitamin B12) 1,000 mcg tablet,disintegrating 1,000 mcg sublingual DAILY Rx Instructions: place tablet under tongue and allow to dissolve for at least30 secs before swallowing metformin 500 mg tablet extended release 24 hr 500 mg PO BID levothyroxine 88 mcg tablet 88 mcg PO DAILY Rx Instructions: 1 tab each day except take 1/2 tab on Sundays. allopurinol 100 mg tablet 200 mg PO DAILY [place] Saline Gel 1 applic topical HS PRN (Reason: dry nasal passages) losartan 100 mg tablet 100 mg PO DAILY montelukast 10 mg tablet 10 mg PO QHS albuterol sulfate 90 mcg/actuation HFA aerosol inhaler 1 puff inhalation Q4H PRN (Reason: shortness of breath or wheezing) pantoprazole 40 mg tablet,delayed release (DR/EC) 40 mg PO DAILY All Day Allergy (cetirizine) 10 mg capsule 10 mg PO DAILY colchicine 0.6 mg tablet 0.6 mg PO DAILY PRN (Reason: inflammation) Rx Instructions: Take 1.2mg once and then 0.6mg in 1 hr, followed by one tablet daily until pain is gone. docusate sodium 100 mg capsule 100 mg PO BID clopidogrel 75 MG tablet 75 mg PO DAILY metoprolol tartrate 25 mg tablet 75 mg PO BID carboxymethylcellulose sodium [Refresh Tears] 0.5 % drops 1 drp EACH EYE DAILY PRN (Reason: dry eyes) docusate sodium 100 mg capsule 100 mg PO DAILY PRN (Reason: constipation) cyanocobalamin (vitamin B-12) 500 mcg tablet 500 mcg PO DAILY ibuprofen [Advil] 200 mg tablet 200 mg PO BID Discontinued Grabiel [place] U-300 Insulin 300 unit/mL (1.5 mL) insulin pen 40 unit SC QDAY insulin aspart U-100 100 unit/mL (3 mL) insulin pen See Rx Instructions SC QACHS Patient Comments: Sliding scale SC QACHS; Rx Instructions: Sliding scale SC QACHS; aspirin [Adult Low Dose Aspirin] 81 mg tablet,delayed release (DR/EC) 81 mg PO BID hydrocodone-acetaminophen 5-325 mg tablet 2 tab PO Q4H PRN (Reason: pain) Rx Instructions: Take 1-2 tablets PRN for pain insulin aspart U-100 100 unit/mL (3 mL) insulin pen 14 unit subcut TID Rx Instructions: with meals polyethylene glycol 3350 [ClearLax] 17 gram/dose powder 17 g PO DAILY PRN (Reason: constipation) insulin glargine U-300 conc [[place] SoloStar U-300 Insulin] 300 unit/mL (1.5 mL) insulin pen 40 unit subcut QHS tramadol 50 mg tablet 50 mg PO Q6H Referrals / Follow Up: Milad Lucas DO [Primary Care Provider] - Disposition Disposition (needs filled in before D/C Order can be placed): Home Health Service
[2024-05-13 21:26] VITALS: BP 133/51; PULSE 60; RESP 16; TEMP 36.6; O2SAT 98
[2024-05-13 22:05] VITALS: PULSE 68
[2024-05-13] MEDS: Insulin Glargine-YFGN 100 UNIT/ML Pen 20 UNIT SC (22:05)
[2024-05-13] MEDS: Montelukast 10 MG Tablet PO (22:06)
[2024-05-13 22:57] LABS: Bedside Glucose 157 mg/dL (74-106)
[2024-05-14] MEDS: Acetaminophen 500 MG Tablet 1000 MG PO (06:34)
[2024-05-14] MEDS: Levothyroxine 88 MCG Tablet PO (06:35)
[2024-05-14 06:38] LABS: Bedside Glucose 152 mg/dL (74-106)
[2024-05-14 06:42] VITALS: PULSE 69; RESP 16
[2024-05-14] MEDS: Insulin Lispro 100 UNIT/ML INSULN.PEN SC (08:14)
[2024-05-14 08:17] VITALS: PULSE 60
[2024-05-14] MEDS: Glucerna Shake 120 ML LIQUID PO (08:17)
[2024-05-14] MEDS: Losartan Potassium 100 MG Tablet PO (08:17)
[2024-05-14] MEDS: Metoprolol Tartrate 25 MG Tablet 75 MG PO (08:17)
[2024-05-14] MEDS: Clopidogrel Bisulfate 75 MG Tablet PO (08:17)
[2024-05-14] MEDS: Ezetimibe 10 MG Tablet PO (08:17)
[2024-05-14] MEDS: Aspirin E.C. 81 MG Tablet PO (08:17)
[2024-05-14] MEDS: Pantoprazole Sodium 40 MG Tablet PO (08:17)
[2024-05-14] MEDS: Cyanocobalamin 500 MCG Tablet PO (08:17)
[2024-05-14] MEDS: metFORMIN (XR) 500 MG Tablet PO (08:17)
[2024-05-14] MEDS: Ibuprofen 200 MG Tablet PO (08:17)
[2024-05-14] MEDS: Loratadine 10 MG Tablet PO (08:17)
[2024-05-14] MEDS: Nystatin Powder 15gm Bottle 1 APPLIC TOPICAL (08:19)
--- NOTE | 2024-05-15 11:05 | MDS.RN ---
Information for the MDS was obtained from review of the clinical record, interview of resident, staff, and direct observation of resident?s care.
== END 2024-05-14 09:58 | disposition home health service (06) | DRG 561 ==
PROVIDERS: Admitting Provider Family Medicine Geriatric Medicine; PCP Family Medicine; Visit Provider Family Medicine Geriatric Medicine
DX: Z47.1 Aftercare following joint replacement surgery (principal); B35.4 Tinea corporis; E11.65 Type 2 diabetes mellitus with hyperglycemia; E03.9 Hypothyroidism, unspecified; E53.8 Deficiency of other specified B group vitamins; Z79.4 Long term (current) use of insulin; I10 Essential (primary) hypertension; J45.909 Unspecified asthma, uncomplicated; M10.9 Gout, unspecified; I25.10 Atherosclerotic heart disease of native coronary artery without angina pectoris; I25.5 Ischemic cardiomyopathy; E87.5 Hyperkalemia; E78.00 Pure hypercholesterolemia, unspecified; K21.9 Gastro-esophageal reflux disease without esophagitis; J30.9 Allergic rhinitis, unspecified; G47.33 Obstructive sleep apnea (adult) (pediatric); R13.10 Dysphagia, unspecified; Z95.1 Presence of aortocoronary bypass graft; Z96.641 Presence of right artificial hip joint; Z79.84 Long term (current) use of oral hypoglycemic drugs; Z79.02 Long term (current) use of antithrombotics/antiplatelets; Z79.899 Other long term (current) drug therapy; Z79.890 Hormone replacement therapy
CPT/HCPCS: 36415; 80048; 82962; 83036; 83735; 85025; 87811; 92610; 97110; 97162; 97166; 97530; 97535; 97802

== ENCOUNTER → 2025-05-29 | Outpatient (CLI) | payer MEDICARE, SELFPAY ==
[2025-05-29 12:47] LABS: Hematocrit 36.8 % (37-47); Hemoglobin 11.0 g/dL (12.0-15.0); Immature Granulocytes Count 0.060 X10^3/uL (0.0-0.0); Mean Corp Hgb Conc 29.9 g/dL (32-36); Mean Corpuscular Volume 78.0 fL (81-99); Mean Platelet Vol. 10.1 fl (6.2-12.0); NRBC Flagged by Analyzer 0 % (0-5); Platelet Count 281 K/mm3 (150-450); RBC Distribution Width CV 17.0 % (11.6-14.6); RBC Distribution Width SD 47.6 fl (35.1-43.9); Red Blood Count 4.72 M/mm3 (4.2-5.4); White Blood Count 13.6 K/mm3 (4.4-11.0)
[2025-05-29 13:23] LABS: AST(SGOT) 28 U/L (<=31); Alanine Aminotransfer ALT/SGPT 21 U/L (<=34); Albumin, Serum 4.3 g/dL (3.4-4.8); Alkaline Phosphatase 67 U/L (35-104); Anion Gap 15 (5-15); BUN 22 mg/dL (4-19); BUN/Creat Ratio 18.3 RATIO (10-20); Calcium,Total 9.4 mg/dL (7.6-11.0); Carbon Dioxide 22.4 mmol/L (21.0-32.0); Chloride 101 mmol/L (98-108); Cholesterol 174 mg/dL (<=200); Globulin 3.1 g/dL (2.2-4.2); Glucose 218 mg/dL (70-99); Low Density Lipoprotein Calc. 97 mg/dL; Potassium 4.8 mmol/L (3.3-5.1); Triglycerides 211 mg/dL; Very Low Density Lipoprotein 42 mg/dL (5-40); cholesterol:hdl ratio screen 4.93
[2025-06-01 14:08] LABS: Vitamin D 1,25-Dihydroxy 22.7 pg/mL (24.8-81.5)
== END | disposition home or self-care (01) ==
LOC: LAB 11:06
PROVIDERS: PCP Family Medicine; Referring Provider Physician Assistant Medical; Visit Provider Physician Assistant Medical
DX: I25.10 Atherosclerotic heart disease of native coronary artery without angina pectoris (principal); I10 Essential (primary) hypertension; E78.00 Pure hypercholesterolemia, unspecified; E55.9 Vitamin D deficiency, unspecified; R06.09 Other forms of dyspnea
CPT/HCPCS: 36415; 80053; 80061; 82652; 84443; 85025